=== PATIENT | female | born 1955 | race Caucasian/White ===

== ENCOUNTER 2023-11-23 22:46 | Inpatient (IN) ==
[2023-11-23] MEDS ORDERED: ONDANSETRON INJ 2 MG/ML 2 ML VIAL ONE (23:03)
[2023-11-23] MEDS ORDERED: MIDAZOLAM HCL 5 MG/ML 2ML VIAL ONE (23:03)
[2023-11-23] MEDS ORDERED: SODIUM CHLORIDE 0.9% 1,000 ML IV ONE (23:48)
--- NOTE | 2023-11-23 23:52 | Emergency Department Note ---
Impression & Plan BPV (benign positional vertigo), Second degree AV block, Mobitz type II Admit to the [facility] ED Provider Note NAME: HERRERA VILLALTA AGE: 68 SEX: Female INFORMANT: Patient ED PROVIDER(S): Ursula Rasheed DO CHIEF COMPLAINT: Dizziness and nausea PLAN: Disposition: Admit to the [facility] MEDICAL DECISION MAKING: This is a 68-year-old female patient had a sudden onset of severe dizziness, nausea and vomiting. The patient has had previous episodes of vertigo but none quite this severe. Later in her emergency department stay, the patient remembered that she had bent over to look underneath of her quoting table earlier in the evening and had a severe and sudden onset of dizziness. Upon arrival here in the emergency department, the patient's symptoms had only slightly improved after receiving IV Zofran and IV Versed from EMS. However, the patient did have an episode of second-degree AV block Mobitz type II on the monitoring tech which left her with a heart rate in the 30s. Laboratory studies revealed no leukocytosis or anemia. Renal function was normal. Electrolytes are normal. Glucose was normal. Patient had a negative troponin and normal TSH Patient received IV normal saline bolus here in the ER along with IV Benadryl. She was able to sleep for some time and seemed to be feeling better. However, I remain concerned about the patient's episode of second-degree AV block with significant bradycardia. I discussed the case with the [facility] and they will evaluate for further inpatient care. 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 Vital Signs: reviewed and remarkable for an episode of bradycardia Additional History obtained from: Her who is at the bedside Differential Diagnosis: Cardiac dysrhythmia, vertigo, intracranial hemorrhage, acute viral illness Diagnostics, independently interpreted by me: ECG normal sinus rhythm at a rate of 65. There is no ST segment elevation or signs of ischemia. QTc was normal. There is no ectopy. Cardiac Monitoring: Normal sinus rhythm at 69 Medical decision rules: None Imaging studies: CT scan of the brain: As per stat rad HPI: 68 year old Female arrives for evaluation of severe dizziness and nausea. Patient had a very sudden and acute onset of dizziness around 9 PM this evening associated with cold sweats and nausea. She then began to dry heave. She describes a history of previous episodes of vertigo but not quite this severe. Patient does recall that she bent over to look under quilting table when she had a severe and sudden onset of dizziness earlier in the evening. PAST MEDICAL HISTORY: GERD, PAST SURGICAL HISTORY: See Below, SOCIAL HISTORY: Lives with her , HOME MEDICATIONS: See list ALLERGIES: See list VITALS: See Below PHYSICAL EXAMINATION: HEENT: Head - normocephalic and atraumatic. Pupils are equal, round, and reactive to light. Extraocular eye muscles are intact and sclera are anicteric. Patient has severe lateral nystagmus. Ears - bilaterally patent canals with noninjected tympanic membranes and no evidence of hemotympanum. Nose - moist nasal mucosa without discharge. Mouth - moist buccal mucosa. Oropharynx is nonerythematous and there is no tonsillar exudate or edema noted. Neck: Supple; no cervical lymphadenopathy or thyromegaly Heart: Regular rate and rhythm. There is a normal S1 and S2 with no murmurs, clicks, or gallops appreciated. Lungs: Clear to auscultation bilaterally with no wheezes, rales, or rhonchi. Abdomen: Soft, completely nontender, nondistended, with good bowel sounds. There are no palpable pulsatile masses or hepatosplenomegaly. There is no guarding, rigidity, or rebound noted. Extremities: No evidence of cyanosis, clubbing, or edema. There are easily palpable peripheral pulses. Neuro:The patient is awake and alert, oriented to day, time, and place. Muscle strength is 5/5 in all 4 extremities. The patient has equal it auditor strength and equal pedal push and pull. There are no cerebellar signs. Emergency department treatment: cardiac monitor, normal saline bolus, IV Benadryl ED course: The patient was evaluated in room B-11. A complete history and physical was performed. Twelve-lead EKG was obtained. An order was placed for continuous cardiac monitoring. The patient was a normal sinus rhythm at a rate of 69. Nursing staff noted the patient had an episode of bradycardia where her rate went into the 30s. Rhythm strip was reviewed and she was in a secondary heart block type II. The patient was fairly asymptomatic with this but continued to have very severe and persistent nausea. She was given a dose of IV Benadryl and IV normal saline bolus. She was able to sleep for period of time. Upon awakening, she was feeling somewhat better. I reviewed the results of the labs with the patient and her . I discussed my concern for her cardiac dysrhythmia. I discussed the case with the [facility] Past Med/Surg History Medical History (Updated 11/24/23 @ 08:21 by Ursula Rasheed DO) Anemia Hiatal hernia Surgical History (Updated 08/15/21 @ 11:45 by Sandra Morin RN) Hx of LASIK H/O cataract extraction H/O breast biopsy Social History Smoking Status: Never smoker Hx Alcohol Use: Yes Hx Substance Use: No Preferred Language: Occitan Communication Ability: Effective Prosthetist Required: No Beliefs That Will Affect Care: None Current Living Situation: Spouse Other Information That Helps Us Care for You: No Feels Safe at Home: Yes Safety Concerns: Feels Safe At This Time Assistive Devices: None Allergies Allergies Allergy/AdvReac Type Severity Reaction Status Date / Time nitrofurantoin Allergy Intermediate Hives Verified 11/23/23 23:13 [From Macrobid] Sulfa (Sulfonamide Allergy Intermediate Rash Verified 11/23/23 23:13 Antibiotics) scopolamine AdvReac Intermediate LONG Verified 11/23/23 23:13 WITHDRAWAL SYMPTOMS Home Meds Home Medications Medication Instructions Recorded Confirmed albuterol sulfate 90 mcg/actuation 2 inh inhalation Q4H PRN Shortness 08/15/21 11/23/23 aerosol inhaler (Ventolin HFA) Of Breath Or Wheezing calcium carbonate 500 mg-vitamin 1 tab PO DAILY 08/15/21 11/23/23 D3 3.125 mcg (125 unit) tablet Bacillus coagulans 500 million 1 cap PO DAILY 11/23/23 11/23/23 cell-lactase 3,000 unit capsule (Digestive Advantage Lactose Supprt) calcium carbonate 300 mg (750 mg) 600 mg PO DIRECTED PRN Heartburn 11/23/23 11/23/23 chewable tablet (Tums E-X) cholecalciferol (vitamin D3) 25 25 mcg PO QPM 11/23/23 11/23/23 mcg (1,000 unit) capsule (Vitamin D3) coenzyme Q10 100 mg capsule 100 mg PO DAILY 11/23/23 11/23/23 (CoQ-10) multivitamin with minerals 1 tab PO DAILY 11/23/23 11/23/23 omega-3 fatty acids 1,000 mg 1,000 mg PO DAILY 11/23/23 11/23/23 capsule omeprazole 20 mg capsule,delayed 20 mg PO DAILYBB 11/23/23 11/23/23 release psyllium husk 0.4 gram capsule 0.8 g PO DAILY 11/23/23 11/23/23 (Fiber (psyllium husk)) valacyclovir 1 gram tablet 2,000 mg PO Q12H PRN Cold Sores 11/23/23 11/23/23 (Valtrex) Results & Data (ED) Vital Signs Vital Signs - 24 hr 11/23/23 22:50 11/23/23 22:58 11/23/23 22:58 Temperature 36.4 C L Temperature Source Oral Pulse Rate 64 67 66 Pulse Rate [Bilateral] Pulse Rate from SpO2 Sensor Pulse Rhythm Regular Pulse Strength Normal Respiratory Rate 20 22 Respiratory Effort / Characteristics Non-Labored Spontaneous Respiratory Depth Normal Respiratory Pattern Regular Blood Pressure 128/86 Blood Pressure [Right Arm] Blood Pressure Mean 100 Blood Pressure Mean [Right Arm] Blood Pressure Position Lying Pulse Oximetry 100 Oxygen Delivery Method Nasal Cannula Oxygen Flow Rate 4 Sepsis Recent Fever Within 48 Hours No Sepsis New/Unexplained Change in Mental Status N/A Sepsis Action Taken by Nursing No Action Required 11/23/23 23:00 11/23/23 23:20 11/23/23 23:30 Temperature Temperature Source Pulse Rate 63 36 L 64 Pulse Rate [Bilateral] Pulse Rate from SpO2 Sensor 63 Pulse Rhythm Pulse Strength Respiratory Rate 18 17 Respiratory Effort / Characteristics Respiratory Depth Respiratory Pattern Blood Pressure 125/81 127/91 Blood Pressure [Right Arm] Blood Pressure Mean 95 103 Blood Pressure Mean [Right Arm] Blood Pressure Position Pulse Oximetry 97 Oxygen Delivery Method Oxygen Flow Rate Sepsis Recent Fever Within 48 Hours Sepsis New/Unexplained Change in Mental Status Sepsis Action Taken by Nursing 11/24/23 00:00 11/24/23 00:25 11/24/23 00:30 Temperature Temperature Source Pulse Rate 63 71 Pulse Rate [Bilateral] 70 Pulse Rate from SpO2 Sensor 64 70 Pulse Rhythm Pulse Strength Respiratory Rate 20 18 15 Respiratory Effort / Characteristics Respiratory Depth Respiratory Pattern Blood Pressure 126/90 139/86 Blood Pressure [Right Arm] 139/86 Blood Pressure Mean 102 103 Blood Pressure Mean [Right Arm] 103 Blood Pressure Position Pulse Oximetry 97 99 99 Oxygen Delivery Method Room Air Oxygen Flow Rate Sepsis Recent Fever Within 48 Hours Sepsis New/Unexplained Change in Mental Status Sepsis Action Taken by Nursing 11/24/23 01:00 11/24/23 01:30 11/24/23 02:00 Temperature Temperature Source Pulse Rate 67 72 63 Pulse Rate [Bilateral] Pulse Rate from SpO2 Sensor 68 71 63 Pulse Rhythm Pulse Strength Respiratory Rate 16 24 16 Respiratory Effort / Characteristics Respiratory Depth Respiratory Pattern Blood Pressure 134/85 145/105 H 129/76 Blood Pressure [Right Arm] Blood Pressure Mean 101 118 93 Blood Pressure Mean [Right Arm] Blood Pressure Position Pulse Oximetry 99 99 100 Oxygen Delivery Method Oxygen Flow Rate Sepsis Recent Fever Within 48 Hours Sepsis New/Unexplained Change in Mental Status Sepsis Action Taken by Nursing 11/24/23 02:30 11/24/23 03:00 11/24/23 03:34 Temperature Temperature Source Pulse Rate 64 76 67 Pulse Rate [Bilateral] Pulse Rate from SpO2 Sensor 61 76 Pulse Rhythm Pulse Strength Respiratory Rate 15 15 Respiratory Effort / Characteristics Respiratory Depth Respiratory Pattern Blood Pressure 127/81 125/79 Blood Pressure [Right Arm] Blood Pressure Mean 94 96 Blood Pressure Mean [Right Arm] Blood Pressure Position Pulse Oximetry 98 95 Oxygen Delivery Method Room Air Room Air Oxygen Flow Rate Sepsis Recent Fever Within 48 Hours Sepsis New/Unexplained Change in Mental Status Sepsis Action Taken by Nursing Laboratory Data 11/24/23 04:51 11/24/23 04:51 Lab Results 11/23/23 Range/Units 23:04 WBC 7.01 (4.8-10.8) K/ul RBC 4.53 (4.20-5.40) M/uL Hgb 13.9 (12.0-16.0) g/dl Hct 41.2 (37.0-47.0) % MCV 90.9 (80.0-100.0) fL MCH 30.7 (25.0-34.0) pg MCHC 33.7 (32.0-36.0) g/dL RDW Std Deviation 41.6 (36.4-46.3) fL RDW Coeff of Charlie 12.5 (11.5-14.5) % Plt Count 174 (130-400) K/uL MPV 11.0 (9.4-12.4) fL Immature Gran % (Auto) 0.4 % Neut % (Auto) 62.2 % Lymph % (Auto) 28.8 % [place] % (Auto) 5.1 % Eos % (Auto) 2.9 % Baso % (Auto) 0.6 % Neut # (Auto) 4.36 (1.40-6.50) K/uL Lymph # (Auto) 2.02 (1.20-3.40) K/uL [place] # (Auto) 0.36 (0.11-0.59) K/uL Eos # (Auto) 0.20 (0.00-0.50) K/uL Baso # (Auto) 0.04 (0.00-0.20) K/uL Immature Gran # (Auto) 0.03 (0.01-0.20) K/uL Sodium 138 (136-145) mmol/L Potassium 4.0 (3.5-5.1) mmol/L Chloride 106 (98-107) mmol/L Carbon Dioxide 25 (21-32) mmol/L Anion Gap 7 (3-11) BUN 16 (6-23) mg/dl Creatinine 1.11 (0.6-1.2) mg/dl Est Cr Clr Drug Dosing 46.7 ml/min Est GFR ( Amer) 58.7 ml/min Est GFR (Non-Af Amer) 50.6 ml/min BUN/Creatinine Ratio 14.4 (10-20) Glucose 143 H (70-99(Fasting)) mg/dl Calcium 8.9 (8.6-10.3) mg/dl Magnesium 1.9 (1.7-2.4) mg/dl Total Bilirubin 0.4 (0.2-1.0) mg/dl AST 18 (13-39) U/L ALT 15 (7-52) U/L Alkaline Phosphatase 92 (34-104) U/L Troponin I High Sens 2.8 (0-14) pg/ml Total Protein 6.7 (6.0-8.3) gm/dl Albumin 4.1 (3.4-5.0) gm/dl Globulin 2.6 (2.5-4.0) gm/dl Albumin/Globulin Ratio 1.6 (0.9-2) TSH 2.063 (0.300-4.500) uIu/ml Administered Medications Sodium Chloride (Nss) 1,000 mls @ 80 mls/hr IV .[id number] TAWANNA Stop: 12/24/23 04:38 Last Admin: 11/24/23 05:08 Dose: 80 mls/hr Documented By: Discontinued Medications Diphenhydramine HCl (Diphenhydramine 50 Mg/Ml Vial) 25 mg IV NOW STA Stop: 11/24/23 01:10 Last Admin: 11/24/23 01:30 Dose: 25 mg Documented By: SAJAN Sodium Chloride (Nss) 1,000 mls @ 999 mls/hr IV .Q1H1M ONE Stop: 11/24/23 00:48 Last Infusion: 11/24/23 01:00 Dose: Infused Documented By: Admin: 11/23/23 23:57 Dose: 999 mls/hr Documented By: SAJAN Imaging Data Radiologist's Impression: Head CT 11/23/23 23:46 Exam(s): CT HEAD Without Contrast EXAM: CT Head Without Intravenous Contrast CLINICAL HISTORY: Reason for exam: severe dizziness. TECHNIQUE: Axial computed tomography images of the head/brain without intravenous contrast. CTDI is 36.18 mGy and DLP is 624.41 mGy-cm. Automated exposure control was utilized for the study. A dose lowering technique was utilized adhering to the principles of ALARA. COMPARISON: None. FINDINGS: Brain: Mild generalized brain atrophy. No hemorrhage. No significant white matter disease. Ventricles: Unremarkable. No ventriculomegaly. Bones/joints: Unremarkable. No acute fracture. Soft tissues: Unremarkable. Sinuses: Unremarkable as visualized. No acute sinusitis. Mastoid air cells: Unremarkable as visualized. No mastoid effusion. IMPRESSION: Involutional changes, otherwise normal CT brain. Electronically signed by: Lizzette Sylvester MD 11/24/23 03:29 AM Discharge Plan Visit Data Chief Complaint: Vertigo Stated Complaint: VERTIGO ED Provider: Ursula Rasheed Discharge Problem: BPV (benign positional vertigo), Second degree AV block, Mobitz type II Patient Disposition: Admitted As Inpatient Discharge Instructions Interventions: ED Discharge Assessment Last Done: 11/24/23 04:39 Discharge Problem: BPV (benign positional vertigo) Qualifiers: Laterality: unspecified laterality Qualified Code(s): H81.10 - Benign paroxysmal vertigo, unspecified ear
[2023-11-24 00:14] LABS: Basophils # (auto) 0.04 K/uL (0.00-0.20); Basophils % (auto) 0.6 %; Eosinophils % (auto) 2.9 %; Hematocrit (blood only) 41.2 % (37.0-47.0); Hemoglobin 13.9 g/dl (12.0-16.0); Immature Granulocytes # (auto) 0.03 K/uL (0.01-0.20); Immature Granulocytes % (auto) 0.4 %; Lymphocytes # (auto) 2.02 K/uL (1.20-3.40); Lymphocytes % (auto) 28.8 %; Mean Corpuscular Hemoglobin 30.7 pg (25.0-34.0); Mean Corpuscular Hgb Conc 33.7 g/dL (32.0-36.0); Mean Corpuscular Volume 90.9 fL (80.0-100.0); Monocytes # (auto) 0.36 K/uL (0.11-0.59); Monocytes % (auto) 5.1 %; Neutrophils # (auto) 4.36 K/uL (1.40-6.50); Neutrophils % (auto) 62.2 %; Platelet Count 174 K/uL (130-400); RDW Coefficient of Variation 12.5 % (11.5-14.5); RDW Standard Deviation 41.6 fL (36.4-46.3); Red Blood Count 4.53 M/uL (4.20-5.40); White Blood Count 7.01 K/ul (4.8-10.8)
[2023-11-24 00:18] LABS: Albumin Globulin Ratio 1.6 (0.9-2); Albumin Level 4.1 gm/dl (3.4-5.0); BUN Creatinine Ratio 14.4 (10-20); Bilirubin,Total 0.4 mg/dl (0.2-1.0); Calcium 8.9 mg/dl (8.6-10.3); Creatinine Clr Calc Pharmacy 46.7 ml/min; Est GFR (African American) 58.7 ml/min; Est GFR (Non-African American) 50.6 ml/min; Globulin 2.6 gm/dl (2.5-4.0); Magnesium 1.9 mg/dl (1.7-2.4); Total Protein 6.7 gm/dl (6.0-8.3)
[2023-11-24 00:25] LABS: Troponin I High Sensitivity 2.8 pg/ml (0-14)
[2023-11-24 00:34] LABS: Thyroid Stimulating Hormone 2.063 uIu/ml (0.300-4.500)
[2023-11-24] MEDS ORDERED: diphenhydrAMINE 50 MG/ML VIAL IV STA (01:09)
--- NOTE | 2023-11-24 03:30 | CT Scan Report ---
Exam(s): CT HEAD Without Contrast EXAM: CT Head Without Intravenous Contrast CLINICAL HISTORY: Reason for exam: severe dizziness. TECHNIQUE: Axial computed tomography images of the head/brain without intravenous contrast. CTDI is 36.18 mGy and DLP is 624.41 mGy-cm. Automated exposure control was utilized for the study. A dose lowering technique was utilized adhering to the principles of ALARA. COMPARISON: None. FINDINGS: Brain: Mild generalized brain atrophy. No hemorrhage. No significant white matter disease. Ventricles: Unremarkable. No ventriculomegaly. Bones/joints: Unremarkable. No acute fracture. Soft tissues: Unremarkable. Sinuses: Unremarkable as visualized. No acute sinusitis. Mastoid air cells: Unremarkable as visualized. No mastoid effusion. IMPRESSION: Involutional changes, otherwise normal CT brain. Electronically signed by: Lizzette Sylvester MD 11/24/23 03:29 AM
--- NOTE | 2023-11-24 04:00 | History & Physical Report ---
Date of Service November 24, 2023 Assessment & Plan (1) Heart block AV second degree: (2) Intractable nausea and vomiting: (3) Vertigo: Plan Pt is a 68yoF with PMhx significant for GERD admitted with concern for Type II heart block after presenting with intractable N/V and vertigo. Heart Block Pt with concern for Type II heart block on telemetry/rhythm strip in the ED with HR in the 30s EKG ordered and pending Trop of 2.8, trend Echo ordered and pending Lyme testing ordered and pending pacer pads to be placed Cardiology consult Intractable N/V Vertigo Pt with sudden onset after bending while quilting CT head with no acute changes Symptoms currently improved Received Versed in the ambulance given by EMS Avoid qt prolonging antiemetics in setting of concern for Type II heart block IV fluids Diet clear liquids, advance as tolerated Gross hematuria Dysuria Notes recent Hx of this UA ordered and pending States has followup with Urology scheduled for gross hematuria on dec 20 Continue home omeprazole once tolerating po well. CODE STATUS: Full code DVT prophylaxis: Lovenox SQ Diet: Clear liquids Dispo: PCU/tele History of Present Illness Chief Complaint: Vertigo Primary Care Provider: Albertina Askew, Pt is a 68yoF with PMhx significant for GERD admitted with concern for Type II heart block after presenting with intractable N/V and vertigo. Pt at bedside. Pt states that about 9pm was quilting and occasionally has to bend to look under the quilt. After an episode of bending, she stood up and noticed that everything was spinning. Got clod and clammy, states she had sweat dripping down her face. Denied chest pain at that time, denied SOB. States this has never happened before. Denies recent tick bites. States she had episodes of N/V and is currently feeling better. States that the room is no longer spinning but feels dizzy or uneasy with walking to the bathroom. Notes a Hx of chronic dysuria. Notes recent episode of gross hematuria and has scheduled follow up with Urology in November. Per ED provider pt had to receive Versed due to current shortage of other benzos, which helped her symptoms. Was being monitored when second degree heart block was noted with HR in the 30s. Allergies Allergy/AdvReac Type Severity Reaction Status Date / Time nitrofurantoin Allergy Intermediate Hives Verified 11/23/23 23:13 [From Macrobid] Sulfa (Sulfonamide Allergy Intermediate Rash Verified 11/23/23 23:13 Antibiotics) scopolamine AdvReac Intermediate LONG Verified 11/23/23 23:13 WITHDRAWAL SYMPTOMS Home Medications Medication Instructions Recorded Confirmed Type albuterol sulfate 90 mcg/actuation 2 inh inhalation Q4H PRN Shortness 08/15/21 11/23/23 History aerosol inhaler (Ventolin HFA) Of Breath Or Wheezing calcium carbonate 500 mg-vitamin 1 tab PO DAILY 08/15/21 11/23/23 History D3 3.125 mcg (125 unit) tablet Bacillus coagulans 500 million 1 cap PO DAILY 11/23/23 11/23/23 History cell-lactase 3,000 unit capsule (Digestive Advantage Lactose Supprt) calcium carbonate 300 mg (750 mg) 600 mg PO DIRECTED PRN Heartburn 11/23/23 11/23/23 History chewable tablet (Tums E-X) cholecalciferol (vitamin D3) 25 25 mcg PO QPM 11/23/23 11/23/23 History mcg (1,000 unit) capsule (Vitamin D3) coenzyme Q10 100 mg capsule 100 mg PO DAILY 11/23/23 11/23/23 History (CoQ-10) multivitamin with minerals 1 tab PO DAILY 11/23/23 11/23/23 History omega-3 fatty acids 1,000 mg 1,000 mg PO DAILY 11/23/23 11/23/23 History capsule omeprazole 20 mg capsule,delayed 20 mg PO DAILYBB 11/23/23 11/23/23 History release psyllium husk 0.4 gram capsule 0.8 g PO DAILY 11/23/23 11/23/23 History (Fiber (psyllium husk)) valacyclovir 1 gram tablet 2,000 mg PO Q12H PRN Cold Sores 11/23/23 11/23/23 History (Valtrex) Past Med/Surg History Medical History (Updated 11/24/23 @ 04:43 by Leah Gu MD) Anemia Hiatal hernia Surgical History (Updated 08/15/21 @ 11:45 by Sandra Morin RN) Hx of LASIK H/O cataract extraction H/O breast biopsy Social History Smoking Status: Never smoker Feels Safe at Home: Yes Review of Systems Review of Systems: All systems reviewed & are unremarkable except as noted in HPI & below Physical Exam Physical Exam: General: Alert, oriented. No acute distress Skin: No noted rashes or bruises Psych: Appropriate mood and affect Neuro: No gross deficits HEENT: NC/AT Chest: Nontender to palpation. CV: RRR Resp: Breath sounds clear bilaterally, no increased effort of breathing. Abdomen: Soft, nontender, nondistended. Extremities: No edema in lower extremities bilaterally. Results & Data Results & Data Vital Signs (Past 12 Hours) Vital Signs Temp Pulse Pulse Resp BP BP Pulse Ox 11/24/23 03:34 67 11/24/23 03:00 76 15 125/79 95 11/24/23 02:30 64 15 127/81 98 11/24/23 02:00 63 16 129/76 100 11/24/23 01:30 72 24 145/105 H 99 11/24/23 01:00 67 16 134/85 99 11/24/23 00:30 71 15 139/86 99 11/24/23 00:25 70 18 139/86 99 11/24/23 00:00 63 20 126/90 97 11/23/23 23:30 64 17 127/91 97 11/23/23 23:20 36 L 11/23/23 23:00 63 18 125/81 11/23/23 22:58 66 22 11/23/23 22:58 67 11/23/23 22:50 36.4 C L 64 20 128/86 100 O2 Del Method O2 Flow Rate 11/24/23 03:34 11/24/23 03:00 Room Air 11/24/23 02:30 Room Air 11/24/23 02:00 11/24/23 01:30 11/24/23 01:00 11/24/23 00:30 11/24/23 00:25 Room Air 11/24/23 00:00 11/23/23 23:30 11/23/23 23:20 11/23/23 23:00 11/23/23 22:58 11/23/23 22:58 11/23/23 22:50 Nasal Cannula [address] 11/23/23 23:46 Exam(s): CT HEAD Without Contrast EXAM: CT Head Without Intravenous Contrast CLINICAL HISTORY: Reason for exam: severe dizziness. TECHNIQUE: Axial computed tomography images of the head/brain without intravenous contrast. CTDI is 36.18 mGy and DLP is 624.41 mGy-cm. Automated exposure control was utilized for the study. A dose lowering technique was utilized adhering to the principles of ALARA. COMPARISON: None. FINDINGS: Brain: Mild generalized brain atrophy. No hemorrhage. No significant white matter disease. Ventricles: Unremarkable. No ventriculomegaly. Bones/joints: Unremarkable. No acute fracture. Soft tissues: Unremarkable. Sinuses: Unremarkable as visualized. No acute sinusitis. Mastoid air cells: Unremarkable as visualized. No mastoid effusion. IMPRESSION: Involutional changes, otherwise normal CT brain. Electronically signed by: Lizzette Sylvester MD 11/24/23 03:29 AM
[2023-11-24] MEDS ORDERED: SODIUM CHLORIDE 0.9% 1,000 ML IV SCH (04:39)
[2023-11-24] MEDS ORDERED: ACETAMINOPHEN 1,000 MG/100 ML VIAL IV PRN (04:39)
[2023-11-24 05:17] LABS: Anion Gap 7 (3-11); BUN Creatinine Ratio 13.5 (10-20); Blood Urea Nitrogen 13 mg/dl (6-23); Carbon Dioxide 25 mmol/L (21-32); Chloride 108 mmol/L (98-107); Creatinine Clr Calc Pharmacy 50.9 ml/min; Est GFR (African American) 69.9 ml/min; Est GFR (Non-African American) 60.3 ml/min; Glucose 125 mg/dl (70-99(Fasting)); Magnesium 1.9 mg/dl (1.7-2.4); Phosphorus 2.4 mg/dl (2.5-4.9); Potassium 4.3 mmol/L (3.5-5.1); Sodium 140 mmol/L (136-145)
[2023-11-24 05:23] LABS: Troponin I High Sensitivity < 2.3 pg/ml (0-14)
--- OUTSIDE RECORDS SUMMARY | 2023-11-24 05:27 | External Medical Summary ---
Author Name Unknown Address Unknown Organization [facility] [address] [place] [id number] Laboratory Report Ordering Provider Test Date Status DO DASHAWNEDY 11/09/2023 11:10:21 Final Observation Date Value Abnormality Reference (Units ) Status BUN 11/09/2023 11:10:21 17 6-20 (mg/dL) Final Creatinine 11/09/2023 11:10:21 1.0 0.5-1.0 (mg/dL) Final Glomerular filtration rate/1.73 sq M.predicted [Volume Rate/Area] in Serum, Plasma or Blood by Creatinine-based formula (CKD-EPI) 11/09/2023 11:10:21 61 >=60 (mL/min) Final eGFR is calculated based on the CKD-EPI 2020 equation SODIUM 11/09/2023 11:10:21 141 135-146 (m mol/L) Final Potassium 11/09/2023 11:10:21 4.4 3.5-5.1 (m mol/L) Final Cl 11/09/2023 11:10:21 104 98-107 (mm ol/L) Final CO2 11/09/2023 11:10:21 25 22-32 (mmo l/L) Final Anion gap 11/09/2023 11:10:21 12 7-15 (mmol /L) Final Glucose 11/09/2023 11:10:21 109 70-120 (mg /dL) Final Calcium 11/09/2023 11:10:21 9.7 8.4-10.2 ( mg/dL) Final Performing Location [facility] [address] [place] [id number]
--- OUTSIDE RECORDS SUMMARY | 2023-11-24 05:27 | External Medical Summary ---
Author Name Unknown Address Unknown Organization [facility] [address] [place] [id number] Laboratory Report Ordering Provider Test Date Status RITA STORY 11/09/2023 11:13:05 Final Observation Date Value Abnormality Reference (Units ) Status RBC, Urine 11/09/2023 11:13:05 50+ Abnormal 0-2 (/HPF) Final WBC, Urine 11/09/2023 11:13:05 6-9 Abnormal 0-2 (/HPF) Final Bacteria [#/area] in Urine sediment by Microscopy high power field 11/09/2023 11:13:05 26-50 Abnormal 0-25 (/HPF) Final Performing Location [facility] [address] [place] [id number]
--- OUTSIDE RECORDS SUMMARY | 2023-11-24 05:27 | External Medical Summary ---
Author Name Unknown Address Unknown Organization [facility] [address] [place] [address] Laboratory Report Ordering Provider Test Date Status RITA STORY 11/09/2023 11:13:05 Final Observation Date Value Abnormality Reference (Units ) Status Color of Urine by Auto 11/09/2023 11:13:05 Dark Yellow Light Yellow, Yellow, Dark Yellow Final Clarity, Urine 11/09/2023 11:13:05 Slightly Cloudy Abnormal Clear Final Glucose [Mass/volume] in Urine by Automated test strip 11/09/2023 11:13:05 Negative Negative (mg/dL) Final Bilirubin.total [Presence] in Urine by Automated test strip 11/09/2023 11:13:05 Negative Negative Final Ketones [Mass/volume] in Urine by Automated test strip 11/09/2023 11:13:05 15 Abnormal Negative (mg/dL) Final Specific gravity, Urine 11/09/2023 11:13:05 >=1.030 1.003-1.030 Final Hemoglobin [Presence] in Urine by Automated test strip 11/09/2023 11:13:05 Large Abnormal Negative Final pH, Urine 11/09/2023 11:13:05 5.5 5.0-7.5 (Units) Final Protein [Mass/volume] in Urine by Automated test strip 11/09/2023 11:13:05 30 Abnormal Negative (mg/dL) Final Urobilinogen [Mass/volume] in Urine by Automated test strip 11/09/2023 11:13:05 0.2 0.2, 1.0 (mg/dL) Final Nitrite [Presence] in Urine by Automated test strip 11/09/2023 11:13:05 Negative Negative Final Leukocyte esterase [Presence] in Urine by Automated test strip 11/09/2023 11:13:05 Trace Abnormal Negative Final Performing Location [facility] [address] [place] [id number]
--- OUTSIDE RECORDS SUMMARY | 2023-11-24 05:27 | External Medical Summary | Summary of Care ---
Author Name Unknown Organization [facility] Address [address] [place] [address] Phone [phone] Care Team Providers Care Supervisor Sewing Department Name Role Phone Albertina Askew Primary Care Provider Encounter Details Date Type Department Care Team (Late st Contact Info) Description 11/16/2023 Telephone General Internal Medicine [facility] [address] [facility] [place] [address] Ranjit Barajas PA-C [facility] [place] [address] Allergies Active Allergy Reactions Criticality Noted Date Comments Nitrofurantoin Macrocrystal Hives 01/31/20 19 Scopolamine 12/18/2022 Long withdrawal symptom Sulfa Antibiotics 06/04/2008 RASH documented as of this encounter (statuses as of 11/17/2023) Medications Medication Sig Dispensed Refills Start Date End Date Status Multiple Vitamins-Minerals (MULTIVITAMIN ADULT EXTRA C) CHEW Take by mouth daily. 0 Active Calcium Carb-Cholecalcifero l 600-800 MG-UNIT Oral Tablet Take 1 Tablet by mouth in the morning. 0 Active Norwood-3 Fatty Acids (OMEGA-3 CF) 1000 MG CAPS Take by mouth daily. 0 Active Loratadine 10 MG Oral Tablet Take 1 Tablet by mouth in the morning. 0 Active Ventolin HFA 108 (90 Base) MCG/ACT Inhalation Aerosol Solution Inhale 2 Puffs by mouth every 4 hours as needed for Wheezing. 18 g 0 08/01/2021 Active Tums Extra Strength 750 750 MG Oral Tablet Chewable (calcium CARBonate) Take 2 Tablets by mouth as needed for Heartburn. 0 Active Co Q 10 100 MG Oral Capsule Take by mouth. 0 Active Scopolamine 1 MG/3DAYS Transdermal Patch 72 Hour (Transderm-Scop) Place 1 Patch topically on the skin every 3 days. 4 hours before event. May replace every 3 days. . 4 Patch 1 11/21/2022 Active Omeprazole 20 MG Oral Capsule Delayed Release (PriLOSEC)Indicatio ns:Gastroesophageal reflux disease without esophagitis take 1 capsule by mouth every morning 1 hour before breakfast 90 Capsule 2 03/04/2023 Active Digestive Advantage Oral Capsule Take by mouth. Combination of probiotics with lactose support. 0 Active valACYclovir HCl 1 GM Oral Tablet (Valtrex)Indication s:Recurrent cold sores take 2 tablets by mouth every morning and 2 tablets at bedtime for COLD SORE 12 Tablet 1 06/07/2023 Active Vitamin D (Cholecalciferol) 25 MCG (1000 UT) Oral Capsule Take by mouth every evening. 0 Active Fiber Formula Oral Capsule Take 2 Capsules by mouth. 0 Active documented as of this encounter (statuses as of 11/17/2023) Active Problems Problem Noted Date Diagnosed Date GERD (gastroesophageal reflux disease) 2 Paraesophageal hernia 12/24/2021 Iron deficiency anemia 08/18/2021 Hand pain 08/10/2017 Trigger middle finger of left hand 08/10/2017 documented as of this encounter (statuses as of 11/17/2023) Resolved Problems Problem Noted Date Diagnosed Date Resolved Date Chronic kidney disease, stage 3a 01/05/2022 12/18/2022 Overview: Per CKD protocol Herpetic gingivostomatitis 04/07/2011 0 08/11/2018 Acute bronchitis, complicated 03/12/2010 05/18/2017 ADVANCE DIRECTIVE INFORMATION 04/06/2007 08/11/2018 Overview: Information given to patient at a previous visit. Contact with or exposure to other viral diseases(V01.79) 09/01/2004 05/18/2017 Uterine leiomyoma 01/11/2004 11/04/2018 VIRAL DIS CONTACT NEC 04/11/20022005 FAM HX-DIABETES MELLITUS 04/11/2002 Excessive menstruation 05/18 documented as of this encounter (statuses as of 11/17/2023) Immunizations Name Administration Dates Next Due COVID-19 mRNA, LNP-s, No Pre serve, 2-Dose Series (Qiniu) 10/13/2021,02/01/2021,01/11/2021 COVID-19, LNP-s, No Preserve , Akhil-sucrose, Ages 12+ (Pfizer) 03/19/2022 Covid-19, Mrna, Lnp-s, Pf, B ivalent, 30 Mcg, IM, 12 yrs and above (Pfizer) 09/04/2022 Pneumococcal Conjugate Vacci ne, 20-valent (Hrajqeu24) 06/07/2023 Pneumococcal Polysaccharide PPV23 (Pneumovax) 04/17/2022,11/07/2019 Seasonal Influenza, PF, 6 M & above, IM , (FluLaval or Fluzone) 09/10/2020,07/20/2019,08/31/2018,08/17 Seasonal Influenza, Quadriva lent Hd (Fluzone Hd) 09/08/2023,09/07/2022,10/01/2021 Seasonal Influenza, Quadriva lent, No Preserve, IM 12/01/2016,10/24/2015 Seasonal Influenza, Split, I IV3, With Preserve, Inj 09/03/2014,09/04/2013,09/05/2012,09/21,11/03/2009,09/26/2008,10/05/2006 ,09/29/2005 TDAP (age 10 and older)(Boostrix) 08/31/2018 TDAP (age 11 and older)(Adacel) 05/24/2008 Varicella Zoster Vaccine (Adult) 09/25/2014 documented as of this encounter Social History Tobacco Use Types Packs/Day Years Used Date Smoking Tobacco: Never Passive Smoke Exposure: Past Smokeless Tobacco: Never Passive Exposure Comments:As a child Alcohol Use Standard Drinks/Week Comments Yes 0 (1 standard drink = 0.6 oz pur e alcohol) occasional PHQ-2 Answer Date Recorded PHQ Adult Total Score 1 10/30/2021 Hunger Vital Sign Answer Date Recorded Within the past 12 months, y ou worried that your food would run out before you got the money to buy more. Never true 06/02/20 23 Within the past 12 months, t he food you bought just didn't last and you didn't have money to get more. Never true 06/02/2023 Sex and Gender Information Value Date Recorded Sex Assigned at Female 04/09/2022 9:26 PM EDT Gender Identity Female 04/09/2022 9:26 PM EDT Sexual Orientation Straight 12/18/2021 8: 33 AM EST Job Start Date Occupation Industry Not on file Not on file Not on file documented as of this encounter Functional Status Functional Status Response Date of Assess ment Are you deaf or do you have serious difficulty h earing? No 12/24/2021 Are you blind or do you have serious difficulty seeing, even when wearing glasses? No 12/24/2021 Do you have serious difficul ty walking or climbing stairs? (5 years old or older) No 12/24/2021 Do you have difficulty dress ing or bathing? (5 years old or older) No 12/24/2021 Because of a physical, menta l, or emotional condition, do you have difficulty doing errands alone such as visiting a doctor s office or shopping? (15 years old or older) No 12/24/19 Cognitive Status Response Date of Assessm ent Because of a physical, menta l, or emotional condition, do you have serious difficulty concentrating, remembering, or making decisions? (5 years old or older) No 12/24/2021 documented as of this encounter Miscellaneous Notes * Telephone Encounter - Pa Cade OSA - 11/17/2023 1:22 PM EST There aren't any soon appts with Dr. Dawkins here at [facility]. [facility] Urology would be the best recommendation to be seen soon. * Telephone Encounter - Sherita Garrison OSA - 11/17/2023 12:59 PM EST Is there anything arnold to get pt in sooner if not I will send referral to [facility] * Telephone Encounter - Hillary Méndez LPN - 11/17/2023 12:17 PM EST Patient aware and verbalized understanding Is willing to see CT urology - please assist with referral * Telephone Encounter - Ranjit Barajas PA-C - 11/16/2023 12:02 PM EST Patient did not read [employer] message. Still has blood in urine. Would like her to see urology sooner than June. See if willing to see [facility]. documented in this encounter Plan of Treatment Upcoming Encounters Date Type Department Care Team (Late st Contact Info) Description 12/08/2023 9:30 AM EST Office Visit [facility] [address] [place] [id number] Albertina Askew, [address] [place] [address] 06/27/2024 8:00 AM EDT Office Visit Urology, [facility] [address] [facility] [place] [address] Gino Dawkins MD [address] [facility] [address] [place] [address] 08/23/2024 9:40 AM EDT Appointment Radiology, [address] [phone] 08/23/2024 11:30 AM EDT Office Visit General Surgery, [place] [address] [place] [address] Bola Haji MD [facility] [place] [address] Health Maintenance Due Date Last Done Comments Cologuard 1999 Fecal Occult Blood Test 1999 04/02/1998 Sigmoidoscopy 1999 Zoster Vaccines (2 of 3) 11/20/2014 09/25/2014 Depression Screening 10/30/2022 10/30/2021 COVID-19 Vaccine ( season) 2023 09/04/2022, 03/19/2022, 10/13/2021, Additional history exists Mammogram 06/17/2024 06/17/2023, 05/23, 05/28/2022, Additional history exists Diabetes Screening 11/09/2026 11/09/2023, 0 06/17/2023, 12/18/2022, Additional history exists Lipid Panel 04/17/2027 04/17/2022, 11/23, 10/05/2018, Additional history exists DTaP,Tdap,and Td Vaccines (3 - Td or Tdap) 08/31/2028 08/31/2018, 05/24/2008 DXA Scan 01/20/2029 01/20/2022, 0311/2021, 08/01/2018, Additional history exists Colonoscopy 09/01/2031 09/01/2021, 08/22, 12/21/2016, Additional history exists Colorectal Cancer Screening 09/01/2031 Albumin/Creatinine Ratio Discontinued 04/17/2022 Pneumococcal Vaccine: 65+ Years Completed 06/07/2023, 04/17/2022, 11/07/2019 Influenza Vaccine (FLU shot) Completed 09/08/2023, 09/07/2022, 10/01/2021, Additional history exists GARDASIL-HPV IMMUNIZATION SERIES Aged Out No longer eligible based on patient's age to complete this topic Hepatitis B Aged Out No longer eligi ble based on patient's age to complete this topic MENINGOCOCCAL (MENACTRA/MENVEO) Aged Out No longer eligible based on patient's age to complete this topic documented as of this encounter Medical Devices Implanted Type Area Division Officer Weapons Department Device Identifier Shelf Expiration Date Model / Serial / Lot Lens Intraoc 20.5 - [id number] - [id number] Implanted:Qty: 1 on 05/16/2020 by Fer Guzman MD at OR [facility] Left: Eye [employer] 10/21/2024 [id number] / [id number] / [id number] Lens Intraoc 22.0 - [id number] - [id number] Implanted:Qty: 1 on 06/04/2020 by Fer Guzman MD at OR [facility] Right: Eye [employer]OM[employer] 10/21/2024 [id number] / [id number] / Allomax Mesh 2 X 4 [id number] - [id number] - [id number] Implanted:Qty: 1 on 12/24/2021 by Bola Haji MD at OR [facility] N/A: Abdomen CR BARD : DAVOL 01/19/2026 [id number] / [id number] / [id number] documented as of this encounter Advance Directives Latest Code Status on File Code Status Date Activated Date Inactivated Comments Full Code 12/24/2021 6:41 PM 12/25/2021 6:20 PM This or tasha reflects the patients wishes and were consensually agreed upon. Question Answer Comments Discussion of Advance Directives occurred with: Not Discussed Does the patient have a Living Will? No Does the patient have Health Care Power of Manager Support Services? No Care Teams Supervisor Sewing Department Relationship Specialty Start Date End Date Albertina Askew DO [address] [facility] [place] [address] PCP - General Family Medicine 05/03/20 documented as of this encounter
--- OUTSIDE RECORDS SUMMARY | 2023-11-24 05:27 | External Medical Summary | Summary of Care ---
Author Name Unknown Organization [facility] Address [address] [place] [address] Phone [phone] Care Team Providers Care Uppers Edge Burnisher Name Role Phone Albertina Askew Primary Care Provider [phone] Reason for Visit * Reason Comments Follow Up Encounter Details Date Type Department Care Team (Latest Contact Info) Description 11/05/2023 9:00 AM EST [facility] General Surgery, [place] [address] [place] [address] Bola Haji MD [address], [place] [id number] Gastroesophageal reflux disease, unspecified whether esophagitis present* Allergies Active Allergy Reactions Criticality Noted Date Comments Nitrofurantoin Macrocrystal Hives 01/31/20 19 Scopolamine 12/18/2022 Long withdrawal symptom Sulfa Antibiotics 06/04/2008 RASH documented as of this encounter (statuses as of 11/05/2023) Medications Medication Sig Dispensed Refills Start Date End Date Status Multiple Vitamins-Minerals (MULTIVITAMIN ADULT EXTRA C) CHEW Take by mouth daily. 0 Active Calcium Carb-Cholecalcifero l 600-800 MG-UNIT Oral Tablet Take 1 Tablet by mouth in the morning. 0 Active [place]-3 Fatty Acids (OMEGA-3 CF) 1000 MG CAPS [...] as of this encounter (statuses as of 11/05/2023) Active Problems Problem Noted Date Diagnosed Date GERD (gastroesophageal reflux disease) 2 Paraesophageal hernia 12/24/2021 Iron deficiency anemia 08/18/2021 Hand pain 08/10/2017 Trigger middle finger of left hand 08/10/2017 documented as of this encounter (statuses as of 11/05/2023) Resolved Problems Problem Noted Date Diagnosed Date [...] as of this encounter (statuses as of 11/05/2023) Immunizations Name Administration Dates Next Due COVID-19 mRNA, LNP-s, No Pre serve, 2-Dose Series (Pfizer) 10/13/2021,02/01/2021,01/11/2021 COVID-19, LNP-s, No Preserve , Akhil-sucrose, Ages 12+ (Pfizer) 03/19/2022 Covid-19, Mrna, Lnp-s, Pf, B ivalent, 30 Mcg, IM, 12 yrs and above (Pfizer) 09/04/2022 Pneumococcal Conjugate Vacci ne, 20-valent ([id number]) 06/07/2023 Pneumococcal Polysaccharide PPV23 (Pneumovax) 04/17/2022,11/07/2019 Seasonal Influenza, PF, 6 M & above, IM , (FluLaval or Fluzone) 09/10/2020,07/20/2019,08/31/2018,08/17 Seasonal Influenza, Quadriva lent Hd (Fluzone Hd) 09/08/2023,09/07/2022,10/01/2021 Seasonal Influenza, Quadriva lent, No Preserve, IM 12/01/2016,10/24/2015 Seasonal Influenza, Split, I IV3, With Preserve, Inj 09/03/2014,09/04/2013,09/05/2012,09/21,11/03/2009,09/26/2008,10/05/2006 TDAP (age 10 and older)(Boostrix) 08/31/2018 TDAP [...] (15 years old or older) No 12/24/19 22 Cognitive Status Response Date of Assessm ent Because of a physical, menta l, or emotional condition, do you have serious difficulty concentrating, remembering, or making decisions? (5 years old or older) No 12/24/2021 documented as of this encounter Progress Notes * Hayder Muir MD - 11/05/2023 9:00 AM EST [facility]" AT [facility] CLINIC VISIT DATE: 11/05/2023 Last Clinical Visit: 01/28/2023 Purnima Reid [id number] 68 year old PCP: Albertina Askew DO Consult requested by: Jairo Baig DO MIS Surgical History: 1) Laparoscopy; Repair Paraesophageal Hernia; for hiatal hernia repair; 12/24/2021 DMP [place], Allomax; 2 X 4 cm 2) Laparoscopy, Esophageal Fundoplication; Tarun 270 degree anterior Fundoplication 3) Upper GI Endoscopy, simple primary examination Doing well after surgery. Patient reports significantly better than prior to surgery. Patient was having abdominal pain radiating to epigastrium starting 5 days ago. Patient restarted omeprazole withimprovement in symptoms. Patient reports nausea and bloating after over eating, which occurs 1-2 times per month. The main preoperative symptoms included Dyspnea and GERD. Symptoms that are resolved or significantly improved include Dyspnea and GERD. Preoperative Reflux Symptom Index score was 13. Preoperative GERD-Health Related Quality of Life score was 19. Reflux Symptom Index Evaluation (0-5): Hoarseness or problem with voice: 2 Throat Clearin Excess throat mucus/post-nasal drip: 4 Difficulty swallowing food, liquid, pills: 0 Coughing after eating or lying down: 0 Breathing difficulties or choking episodes: 0 Troublesome or annoying cough: 0 Globus sensation: 1 Heartburn, chest pain, indigestion, or stomach acid coming up: 1 Current RSI Total Score: 11 GERD-HRQL Evaluation (0-5) Global heartburn severity: 1 Supine heartburn: 1 Upright heartburn: 0 Post-parandial heartburn: 2 Does heartburn require dietary modification? 0 Does heartburn awaken from sleep? 0 Difficulty swallowin Pain with swallowin Feelings of gassiness or bloatin Impact of taking medication on daily life:0 Current GERD-HRQL score: 9 QOLRAD completed: no Burping or belching Yes Tolerating a Full liquid We have DISCONTINUED her NONE . Any history of Gooden's esophagitis?No; Follow up EGD? No Complications: Postoperative complications include: 0 - NONE Clavien Score: N/A Unplanned admission to ICU within 30 days? no Readmission with in 30 days? no Interventions/Re-operations within 30 days? no NEW STUDIES FINDINGS There is no nephrolithiasis or urinary tract calcification on precontrast imaging. There is no renal mass seen on nephrographic phase of imaging. On excretion phase imaging, the entire urinary tract is well opacified and adequately distended, with the exception of the distal segment of the left ureter, which is not well opacified . There is nomass, filling defect, wall thickening, or dilatation in the urinary tract. No filling defect withinthe opacified portions of the urinary bladder, noting that the anterior portion of the urinary bladder is not well opacified and not well distended. Additional findings: Several hepatic cysts. Gallbladder is unremarkable. No biliary dilatation. Spleen is unremarkable. Pancreas is unremarkable. Adrenal glands are unremarkable. Small hiatal hernia. GI tract is grossly unremarkable. Calcified uterine leiomyomas. No intra-abdominal or intrapelvic lymphadenopathy. No ascites or pneumoperitoneum. Abdominal aorta is normal in caliber. Mild degenerative changes in the spine. Mild scoliosis. IMPRESSION No abnormal filling defect or other urothelial abnormality in the opacified urinary tract . Current Outpatient Medications Medication Sig Dispense Refill Multiple Vitamins-Minerals (MULTIVITAMIN ADULT EXTRA C) CHEW Take by mouth daily. Calcium Carb-Cholecalciferol 600-800 MG-UNIT Oral Tablet Take 1 Tablet by mouth in the morning. [place]-3 Fatty Acids (OMEGA-3 CF) 1000 MG CAPS Take by mouth daily. Loratadine 10 MG Oral Tablet Take 1 Tablet by mouth in the morning. (Patient not taking: Reported on 09/08/2023) Ventolin HFA 108 (90 Base) MCG/ACT Inhalation Aerosol Solution Inhale 2 Puffs by mouth every 4 hours as needed for Wheezing. 18 g 0 Tums Extra Strength 750 750 MG Oral Tablet Chewable (calcium CARBonate) Take 2 Tablets by mouth as needed for Heartburn. Co Q 10 100 MG Oral Capsule Take by mouth. Scopolamine 1 MG/3DAYS Transdermal Patch 72 Hour (Transderm-Scop) Place 1 Patch topically on the skin every 3 days. 4 hours before event. May replace every 3 days. . 4 Patch 1 Omeprazole 20 MG Oral Capsule Delayed Release (PriLOSEC) take 1 capsule by mouth every morning 1 hour before breakfast 90 Capsule 2 Digestive Advantage Oral Capsule Take by mouth. Combination of probiotics with lactose support. valACYclovir HCl 1 GM Oral Tablet (Valtrex) take 2 tablets by mouth every morning and 2 tablets at bedtime for COLD SORE 12 Tablet 1 Vitamin D (Cholecalciferol) 25 MCG (1000 UT) Oral Capsule Take by mouth every evening. Fiber Formula Oral Capsule Take 2 Capsules by mouth. No current facility-administered medications for this visit. Allergies as of 11/05/2023 - Reviewed 10/13/2023 Allergen Reaction Noted Macrobid [nitrofurantoin macrocrystal] Hives 01/30/2019 Scopolamine 12/18/2022 Sulfa antibiotics 06/04/2008 Physical Exam: 11/05/2023 No vitals. Reported wt 154 lbs 01/28/2023 Pulse 63 | Temp 35.7 C (96.3 F) | Wt 68.5 kg (151 lb) | LMP 12/23/2005 | BMI 25.13 kg/m | BSA 1.77 m 04/23/2022 BP 139/69 | Pulse 58 | Temp 35.9 C (96.6 F) | Wt 66.9 kg (147 lb 6.4 oz) | LMP 12/23/2005 | BMI 24.53 kg/m | BSA 1.75 m 12/18/21: Blood pressure 143/75, pulse 93, temperature 36.1 C (97 F), height 1.6 m (5' 3"), weight 70.4 kg (155 lb 3.2 oz), last menstrual period 12/23/2005., Body mass index is 27.49 kg/m. General: Alert and appropriate. Well-appearing and in no distress Impression: Excellent progress after 1) Laparoscopy; Repair Paraesophageal Hernia; for hiatal hernia repair; 12/24/2021 DMP [place], Allomax; 2 X 4 cm 2) Laparoscopy, Esophageal Fundoplication; Tarun 270 degree anterior Fundoplication 3) Upper GI Endoscopy, simple primary examination The patient's preoperative symptoms of Dyspnea have significantly improved or resolved on medication Plan: 1) Diet: Regular diet 2) Activity: Unlimited 3) Follow up visit in 1 year with UGI 4) Wound: Healed 5) Medications: Omeprazole 20 mg daily I spent a total of Greater than 55 mins (exact time 50 mins) on the date of service in preparation,delivery, and documentation of the care provided to Purnima Reid excluding any time spent in the performance of separately billed services. Bola Haji MD, FACS, [facility] [employer] [facility] Minimally Invasive/ Bariatric Surgery Fellowship documented in this encounter Plan of Treatment Upcoming Encounters Date Type Department Care Team (Late st Contact Info) Description 12/08/2023 9:30 AM EST Office Visit [address] [phone] Albertina Askew DO [address] [facility] [address] 06/27/2024 8:00 AM EDT Office Visit Urology, [facility] [address] [place] [address] Gino Dawkins MD 27 [facility] [place] [address] [place] [address] Scheduled Orders Name Type Priority Associated Diagnoses Orde r Schedule FLUORO UGI SINGLE CONTRAST Medical Imaging Routine Gastroesophageal reflux disease, unspecified whether esophagitis present Expected: 09/05/2024, Expires: 11/22/2024 Health Maintenance Due Date Last Done Comments Cologuard 1999 Fecal Occult Blood Test 1999 04/02/1998 Sigmoidoscopy 1999 Zoster Vaccines (2 of 3) 11/20/2014 09/25/2014 Depression Screening 10/30/2022 10/30/2021 COVID-19 Vaccine ( season) 2023 09/04/2022, 03/19/2022, 10/13/2021, Additional history exists Mammogram 06/17/2024 06/17/2023, 05/23, 05/28/2022, Additional history exists Diabetes Screening 06/17/2026 06/17/2023, 0 12/18/2022, 04/17/2022, Additional history exists Lipid Panel 04/17/2027 04/17/2022, [...] this encounter Medical Devices Implanted Type Area 4Th Grade Teacher Device Identifier Shelf Expiration Date Model / Serial / Lot Lens Intraoc 20.5 - [id number] - [id number] Implanted:Qty: 1 on 05/16/2020 by Fer Guzman MD at OR [facility] Left: Eye BAUSCH & LOMB 10/21/2024 [id number] / [id number] / [id number] Lens Intraoc 22.0 - [id number] - [id number] Implanted:Qty: 1 on 06/04/2020 by Fer Guzman MD at OR [facility] Right: Eye BAUSCH & LOMB 10/21/2024 [id number] / [id number] / Allomax Mesh 2 X 4 [id number] - [id number] - [id number] Implanted:Qty: 1 on 12/24/2021 by Bola Haji MD at [place] [facility] N/A: Abdomen CR BARD : DAVOL 01/19/2026 [id number] / [id number] / [id number] documented as of this encounter Visit Diagnoses Diagnosis Gastroesophageal reflux disease, unspecified whether esophagitis present- Primary documented in this encounter Advance Directives Latest Code Status on File Code Status Date Activated Date Inactivated Comments Full Code 12/24/2021 6:41 PM 12/25/2021 6:20 PM This or tasha reflects the patients wishes and were consensually agreed upon. Question Answer Comments Discussion of Advance Directives occurred with: Not Discussed Does the patient have a Living Will? No Does the patient have Health Care Power of Control Director? No Care Teams Uppers Edge Burnisher Relationship Specialty Start Date End Date Albertina Askew DO [address], [place] [phone] PCP - General Family Medicine 05/03/20 documented as of this encounter
--- OUTSIDE RECORDS SUMMARY | 2023-11-24 05:27 | External Medical Summary | Summary of Care ---
Author Name Unknown Organization [facility] Address [address] [place] [address] Phone [phone] Care Team Providers Care Associate Music Professor Name Role Phone Albertina Askew Primary Care Provider Encounter Details Date Type Department Care Team (Late st Contact Info) Description 11/16/2023 Telephone General Internal Medicine [facility] [address] [facility] [place] [address] Ranjit Barajas PA-C [facility] [place] [address] Allergies Active Allergy Reactions Criticality Noted Date [...] by mouth in the morning. 0 Active [place]-3 Fatty Acids (OMEGA-3 CF) 1000 MG CAPS [...] mRNA, LNP-s, No Pre serve, 2-Dose Series ([employer]) 10/13/2021,02/01/2021,01/11/2021 COVID-19, LNP-s, No Preserve , Akhil-sucrose, Ages 12+ (Pfizer) 03/19/2022 Covid-19, Mrna, Lnp-s, Pf, B ivalent, 30 Mcg, IM, 12 yrs and above (Pfizer) 09/04/2022 Pneumococcal Conjugate Vacci ne, 20-valent ([id number]) 06/07/2023 Pneumococcal Polysaccharide PPV23 (Pneumovax) 04/17/2022,11/07/2019 Seasonal [...] encounter Miscellaneous Notes * Telephone Encounter - Sherita Garrison OSA - 11/17/2023 12:59 PM EST Is there anything arnold to get pt in sooner if not I will send referral to [facility] * Telephone Encounter - Hillary Méndez LPN - 11/17/2023 12:17 PM EST Patient aware and verbalized understanding Is willing to see [place] urology - please assist with referral * Telephone Encounter - Ranjit Barajas PA-C - 11/16/2023 12:02 PM EST Patient did not read [employer] message. Still has blood in urine. Would like her to see urology sooner than June. See if willing to see [facility]. documented in this encounter Plan of Treatment Upcoming Encounters Date Type Department Care Team (Late st Contact Info) Description 12/08/2023 9:30 AM EST Office Visit [facility] [address] [place] [phone] Albertina Askew DO [address] [place] [address] 06/27/2024 8:00 AM EDT Office Visit Urology, [facility] 132 [facility] [place] [address] Gino Dawkins MD 27 [facility] [address] [place] [address] 08/23/2024 9:40 AM EDT Appointment Radiology, [place] [address] [place] [phone] 08/23/2024 11:30 AM EDT Office Visit General Surgery, [place] [address] [place] [address] Bola Haji MD [address] [place] [address] Health Maintenance Due Date Last Done Comments [...] 08/31/2028 08/31/2018, 05/24/2008 DXA Scan 01/20/2029 01/20/2022, 11/2021, 08/01/2018, Additional history exists Colonoscopy 09/01/2031 09/01/2021, [...] this encounter Medical Devices Implanted Type Area Screw Machine Operator Swiss Type Device Identifier Shelf Expiration Date Model / Serial / Lot Lens Intraoc 20.5 - [id number] - [id number] Implanted:Qty: 1 on 05/16/2020 by Fer Guzman MD at OR [facility] Left: Eye BAUSCH & LOMB 10/21/2024 [id number] / [id number] / [id number] Lens Intraoc 22.0 - [id number] - [id number] Implanted:Qty: 1 on 06/04/2020 by Fer Guzman MD at OR [facility] Right: Eye BAUSCH & LOMB 10/21/2024 [id number] / [id number] / Allomax Mesh 2 X 4 [id number] - [id number] - [id number] Implanted:Qty: 1 on 12/24/2021 by Bola Haji MD at OR [facility] [place] N/A: Abdomen CR BARD : DAVOL 01/19/2026 [id number] / [id number] / [id number] documented as of this encounter Advance Directives [...] the patient have Health Care Power of Roll Panner? No Care Teams Associate Music Professor Relationship Specialty Start Date End Date Albertina Askew DO [address] [facility] [place] [address] PCP - General Family Medicine 05/03/20 documented as of this encounter
--- OUTSIDE RECORDS SUMMARY | 2023-11-24 05:27 | External Medical Summary | Summary of Care ---
Author Name Unknown Organization [facility] Address [address] [place] [address] Phone [phone] Care Team Providers Care Internal Wholesaler Name Role Phone Albertina Askew Primary Care Provider Encounter Details Date Type Department Care Team (Late st Contact Info) Description 11/16/2023 Telephone General Internal Medicine [facility] [address] [facility] [place] [address] Ranjit Barajas PA-C [facility] [place] [address] Allergies Active Allergy Reactions Criticality Noted Date [...] by mouth in the morning. 0 Active [place]-3 Fatty Acids (OMEGA-3 CF) 1000 MG CAPS [...] mRNA, LNP-s, No Pre serve, 2-Dose Series ([employer]) 10/13/2021,02/01/2021,01/11/2021 COVID-19, LNP-s, No Preserve , Akhil-sucrose, Ages 12+ (Pfizer) 03/19/2022 Covid-19, Mrna, Lnp-s, Pf, B ivalent, 30 Mcg, IM, 12 yrs and above (Pfizer) 09/04/2022 Pneumococcal Conjugate Vacci ne, 20-valent ([id number]) 06/07/2023 Pneumococcal Polysaccharide PPV23 (Pneumovax) 04/17/2022,11/07/2019 Seasonal [...] Encounter - Sherita Garrison OSA - 11/17/2023 2:33 PM EST Printed and faxed * Telephone Encounter - Pa Cade OSA - 11/17/2023 1:22 PM EST There aren't any soon appts with Dr. Dawkins here at [facility]. [facility] would be the best recommendation to be seen soon. * Telephone Encounter - Sherita Garrison OSA - 11/17/2023 12:59 PM EST Is there anything arnold to get pt in sooner if not I will send referral to [facility] * Telephone Encounter - Hillary Méndez LPN - 11/17/2023 12:17 PM EST Patient aware and verbalized understanding Is willing to see [place] urology - please assist with referral * Telephone Encounter - Ranjit Barajas PA-C - 11/16/2023 12:02 PM EST Patient did not read [employer] message. Still has blood in urine. Would like her to see urology sooner than June. See if willing to see [facility]. documented in this encounter Plan of Treatment Upcoming Encounters Date Type Department Care Team (Late st Contact Info) Description 12/08/2023 9:30 AM EST Office Visit [facility] [address] [place] [phone] Albertina Askew DO [address] [place] [address] 08/23/2024 9:40 AM EDT Appointment Radiology, [place] [address] [place] [phone] 08/23/2024 11:30 AM EDT Office Visit General Surgery, [place] [address] [place] [address] Bola Haji MD [address] [place] [address] Health Maintenance Due Date Last Done Comments [...] 08/31/2028 08/31/2018, 05/24/2008 DXA Scan 01/20/2029 01/20/2022, 03/0 11/2021, 08/01/2018, Additional history exists Colonoscopy 09/01/2031 [...] this encounter Medical Devices Implanted Type Area Superintendent [employer] Device Identifier Shelf Expiration Date Model / Serial / Lot Lens Intraoc 20.5 - [id number] - [id number] Implanted:Qty: 1 on 05/16/2020 by Fer Guzman MD at OR [facility] Left: Eye BAUSCH & LOMB 10/21/2024 [id number] / [id number] / [id number] Lens Intraoc 22.0 - [id number] - [id number] Implanted:Qty: 1 on 06/04/2020 by Fer Guzman MD at OR [facility] Right: Eye BAUSCH & LOMB 10/21/2024 [id number] / [id number] / Allomax Mesh 2 X 4 [id number] - [id number] - [id number] Implanted:Qty: 1 on 12/24/2021 by Bola Haji [place] [facility] [place]/A: Abdomen CR BARD : DAVOL 01/19/2026 [id number] / [id number] / [id number] documented as of this encounter Advance Directives [...] the patient have Health Care Power of Slots Manager? No Care Teams Internal Wholesaler Relationship Specialty Start Date End Date Albertina Askew DO [address] [facility] [place] [address] PCP - General Family Medicine 05/03/20 documented as of this encounter
--- OUTSIDE RECORDS SUMMARY | 2023-11-24 05:27 | External Medical Summary | Summary of Care ---
Author Name Unknown Organization [facility] Address [address] [place] [address] Phone [phone] Care Team Providers Care Getter Operator Name Role Phone Albertina Askew Primary Care Provider [phone] Encounter Details Date Type Department Care Team (Late st Contact Info) Description 11/08/2023 Orders Only General Surgery, [place] [address], [place] [phone] Narciso Licea, LIZETH [address] [place], [place] [phone] Postgastric surgery syndrome*; Paraesophageal hernia Allergies Active Allergy Reactions Criticality Noted Date Comments Nitrofurantoin Macrocrystal Hives 01/31/20 19 Scopolamine 12/18/2022 Long withdrawal symptom Sulfa Antibiotics 06/04/2008 RASH documented as of this encounter (statuses as of 11/08/2023) Medications Medication Sig Dispensed Refills Start Date End Date Status Multiple Vitamins-Minerals (MULTIVITAMIN ADULT EXTRA C) CHEW Take by mouth daily. 0 Active Calcium Carb-Cholecalcifero l 600-800 MG-UNIT Oral Tablet Take 1 Tablet by mouth in the morning. 0 Active [place]-3 Fatty Acids (OMEGA-3 CF) 1000 MG CAPS [...] as of this encounter (statuses as of 11/08/2023) Active Problems Problem Noted Date Diagnosed Date GERD (gastroesophageal reflux disease) 2 Paraesophageal hernia 12/24/2021 Iron deficiency anemia 08/18/2021 Hand pain 08/10/2017 Trigger middle finger of left hand 08/10/2017 documented as of this encounter (statuses as of 11/08/2023) Resolved Problems Problem Noted Date Diagnosed Date [...] as of this encounter (statuses as of 11/08/2023) Immunizations Name Administration Dates Next Due COVID-19 mRNA, LNP-s, No Pre serve, 2-Dose Series ([employer]) 10/13/2021,02/01/2021,01/11/2021 COVID-19, LNP-s, No Preserve , Akhil-sucrose, Ages 12+ (Pfizer) 03/19/2022 Covid-19, Mrna, Lnp-s, Pf, B ivalent, 30 Mcg, IM, 12 yrs and above (Pfizer) 09/04/2022 Pneumococcal Conjugate Vacci ne, 20-valent ([id number]) 06/07/2023 Pneumococcal Polysaccharide PPV23 (Pneumovax) 04/17/2022,11/07/2019 Seasonal [...] No 12/24/2021 documented as of this encounter Plan of Treatment Upcoming Encounters Date Type Department Care Team (Late st Contact Info) Description 12/08/2023 9:30 AM EST Office Visit [facility] [address] [facility] [phone] Albertina Askew DO [address] [facility] [place] [address] 06/27/2024 8:00 AM EDT Office Visit Urology, [address] [place] [address] Gion Dawkins MD 27 [facility] [place] [address] [place] [address] Scheduled Orders Name Type Priority Associated Diagnoses Orde r Schedule FLUORO UGI SINGLE CONTRAST Medical Imaging Routine Postgastric surgery syndrome Paraesophageal hernia Ordered: 11/08/2023 Health Maintenance Due Date Last Done Comments [...] this encounter Medical Devices Implanted Type Area Steam Pressure Chamber Operator Device Identifier Shelf Expiration Date Model / Serial / Lot Lens Intraoc 20.5 - [id number] - [id number] Implanted:Qty: 1 on 05/16/2020 by Fer Guzman MD at OR [facility] Left: Eye BAUSCH & LOMB 10/21/2024 [id number] / [id number] / [id number] Lens Intraoc 22.0 - [id number] - [id number] Implanted:Qty: 1 on 06/04/2020 by Fer Guzman MD at OR [facility] Right: Eye BAUSCH & LOMB 10/21/2024 [id number] / [id number] / Allomax Mesh 2 X 4 [id number] - [id number] - [id number] Implanted:Qty: 1 on 12/24/2021 by Bola Haji MD [place] [facility]/A: Abdomen CR BARD : DAVOL 01/19/2026 [id number] / [id number] / [id number] documented as of this encounter Visit Diagnoses Diagnosis Postgastric surgery syndrome- Primary Postgastric surgery syndromes Paraesophageal hernia Diaphragmatic hernia without mention of obstruction or gangrene documented in this encounter Advance Directives Latest [...] the patient have Health Care Power of Filter Cloth Maker? No Care Teams Getter Operator Relationship Specialty Start Date End Date Albertina Askew DO [address] [facility] [place] [address] PCP - General Family Medicine 05/03/20 documented as of this encounter
--- OUTSIDE RECORDS SUMMARY | 2023-11-24 05:27 | External Medical Summary | Summary of Care ---
Author Name Unknown Organization [facility] Address [address] [place] [address] Phone [phone] Care Team Providers Care Weight Loss Centre Manager Name Role Phone Albertina Askew Primary Care Provider [phone] Reason for Visit * Reason Comments Outpatient Testing Encounter Details Date Type Department Care Team (Late st Contact Info) Description 11/09/2023 11:40 AM EST Laboratory Laboratory, [facility] [address] [facility] [place] [phone] [facility] [address] [facility] [place] [address] Other microscopic hematuria; Acute cystitis with hematuria Allergies Active Allergy Reactions Criticality Noted Date Comments Nitrofurantoin Macrocrystal Hives 01/31/20 19 Scopolamine 12/18/2022 Long withdrawal symptom Sulfa Antibiotics 06/04/2008 RASH documented as of this encounter (statuses as of 11/09/2023) Medications Medication Sig Dispensed Refills Start Date End Date Status Multiple Vitamins-Minerals (MULTIVITAMIN ADULT EXTRA C) CHEW Take by mouth daily. 0 Active Calcium Carb-Cholecalcifero l 600-800 MG-UNIT Oral Tablet Take 1 Tablet by mouth in the morning. 0 Active Henrietta-3 Fatty Acids (OMEGA-3 CF) 1000 MG CAPS [...] as of this encounter (statuses as of 11/09/2023) Active Problems Problem Noted Date Diagnosed Date GERD (gastroesophageal reflux disease) 2 Paraesophageal hernia 12/24/2021 Iron deficiency anemia 08/18/2021 Hand pain 08/10/2017 Trigger middle finger of left hand 08/10/2017 documented as of this encounter (statuses as of 11/09/2023) Resolved Problems Problem Noted Date Diagnosed Date [...] as of this encounter (statuses as of 11/09/2023) Immunizations Name Administration Dates Next Due COVID-19 mRNA, LNP-s, No Pre serve, 2-Dose Series (Pfizer) 10/13/2021,02/01/2021,01/11/2021 COVID-19, LNP-s, No Preserve , Akhil-sucrose, Ages 12+ (Pfizer) 03/19/2022 Covid-19, Mrna, Lnp-s, Pf, B ivalent, 30 Mcg, IM, 12 yrs and above (Pfizer) 09/04/2022 Pneumococcal Conjugate Vacci ne, 20-valent ([id number]) 06/07/2023 Pneumococcal Polysaccharide PPV23 (Pneumovax) 04/17/2022,11/07/2019 Seasonal [...] Description 12/08/2023 9:30 AM EST [facility] [address] [facility] [phone] Albertina Askew DO [address] [facility] [address] 06/27/2024 8:00 AM EDT Office Visit Urology, [facility] [address] [facility] [place] [address] Gino Dawkins MD [address] [facility] [address] [place] [address] 08/23/2024 9:40 AM EDT Appointment Radiology, [place] [address] [place] [address] 08/23/2024 11:30 AM EDT Office Visit General Surgery, [place] [address] [place] [address] Bola Haji MD [address] [place] [address] Pending Results Name Type Priority Associated Diagnoses Date /Time BASIC METABOLIC PANEL Lab Routine Other microscopic hematuria 11/09/2023 11:10 AM EST URINALYSIS, REFLEX TO MICROSCOPIC Lab Routine Acute cystitis with hematuria 11/09/2023 11:13 AM EST MICROSCOPIC EXAM, URINE Lab Routine Acute cystitis with hematuria 11/09/2023 11:13 AM EST Health Maintenance Due Date Last Done Comments [...] this encounter Medical Devices Implanted Type Area Java Software Device Identifier Shelf Expiration Date Model / Serial / Lot Lens Intraoc 20.5 - [id number] - [id number] Implanted:Qty: 1 on 05/16/2020 by Fer Guzman MD at OR [facility] Left: Eye BAUSCH [employer] LOMB 10/21/2024 [id number] / [id number] / [id number] Lens Intraoc 22.0 - [id number] - [id number] Implanted:Qty: 1 on 06/04/2020 by Fer Guzman MD at OR [facility] Right: Eye BAUSCH [employer] LOMB 10/21/2024 [id number] / [id number] / Allomax Mesh 2 X 4 [id number] - [id number] - [id number] Implanted:Qty: 1 on 12/24/2021 by Bola Haji MD at OR [facility] N/A: Abdomen CR BARD : DAVOL 01/19/2026 [id number] / [id number] documented as of this encounter Visit Diagnoses Diagnosis Other microscopic hematuria Acute cystitis with hematuria Acute cystitis documented in this encounter Advance Directives Latest [...] the patient have Health Care Power of Support Associate? No Care Teams Weight Loss Centre Manager Relationship Specialty Start Date End Date Albertina Askew DO [address] [place] [address] PCP - General Family Medicine 05/03/20 documented as of this encounter
[2023-11-24 05:28] LABS: Hemoglobin 13.7 g/dl (12.0-16.0); Mean Corpuscular Hemoglobin 30.1 pg (25.0-34.0); Mean Corpuscular Hgb Conc 33.4 g/dL (32.0-36.0); Mean Corpuscular Volume 90.1 fL (80.0-100.0); Platelet Count 183 K/uL (130-400); RDW Coefficient of Variation 12.6 % (11.5-14.5); RDW Standard Deviation 41.5 fL (36.4-46.3); Red Blood Count 4.55 M/uL (4.20-5.40); White Blood Count 9.01 K/ul (4.8-10.8)
--- OUTSIDE RECORDS SUMMARY | 2023-11-24 05:28 | External Medical Summary ---
Author Name Unknown Address Unknown Organization K01:LABORATORY [facility] [place] - [address] [place] [address] Laboratory Report Ordering Provider Test Date Status PATITOSANDRA 06/17/2023 07:51:17 Final Observation Date Value Abnormality Reference (Units ) Status Iron 06/17/2023 07:51:17 95 33-151 (ug /dL) Final Iron-binding capacity 06/17/2023 07:51:17 345 250-425 (ug/dL) Final Transferrin Sat % 06/17/2023 07:51:17 28 15 -55 (%) Final Performing Location LABORATORY C - [address] [place] [address]
--- OUTSIDE RECORDS SUMMARY | 2023-11-24 05:28 | External Medical Summary | Summary of Care ---
Author Name Unknown Organization [facility] Address [address] [place] [facility] [place] [facility] [place] [address] Phone [phone] Care Team Providers Care Bronzer Name Role Phone Albertina Askew Primary Care Provider Reason for Visit * Reason Onset Date Comments Medication Administration 09/08/2023 Flu an d/or Pneumo Inj Encounter Details Date Type Department Care Team Description 09/08/2023 Office Visit Gastroenterology, [facility] [address] [place] [address] Kiah Loyd CRNP [address] [place] [address] Loose stools* Allergies Active Allergy Reactions Severity Noted Date Comments Nitrofurantoin Macrocrystal Hives 01/31/20 19 Scopolamine 12/18/2022 Long withdrawal symptom Sulfa Antibiotics 06/04/2008 RASH documented as of this encounter (statuses as of 09/08/2023) Medications Medication Sig Dispensed Refills Start Date End Date Status nystatin (NYSTOP) 783925 UNIT/GM powder Apply topically to affected area 2 times a day. Apply to affected area 15 g 3 06/14/2019 Active Additional Information Patient not taking.Reported on 06/07/2023 Multiple Vitamins-Minerals (MULTIVITAMIN ADULT EXTRA C) CHEW Take by mouth daily. 0 Active Calcium Carb-Cholecalcifero l 600-800 MG-UNIT Oral Tablet Take 1 Tablet by mouth in the morning. 0 Active [place]-3 Fatty Acids (OMEGA-3 CF) 1000 MG CAPS [...] COLD SORE 12 Tablet 1 06/07/2023 Active Colestipol HCl 1 GM Oral Tablet (Colestid) Take 1 to 2 tablets by mouth with lunch every day 60 Tablet 5 06/07/2023 Active Additional Information Patient not taking.Reported on 09/08/2023 Vitamin D (Cholecalciferol) 25 MCG (1000 UT) Oral Capsule Take by mouth every evening. 0 Active Fiber Formula Oral Capsule Take 2 Capsules by mouth. 0 Active documented as of this encounter (statuses as of 09/08/2023) Active Problems Problem Noted Date GERD (gastroesophageal reflux disease) 0 12/25/2021 Paraesophageal hernia 12/24/2021 Iron deficiency anemia 08/18/2021 Hand pain 08/10/2017 Trigger middle finger of left hand 08/10 documented as of this encounter (statuses as of 09/08/2023) Resolved Problems Problem Noted Date Resolved Date Chronic kidney disease, stage 3a 01/05/2022 12/18/2022 Overview: Per CKD protocol Herpetic gingivostomatitis 04/07/201108/11 Acute bronchitis, complicated 03/12/2010 ADVANCE DIRECTIVE INFORMATION 04/06/2007 Overview: Information given to patient at a previous visit. Contact with or exposure to other viral diseases (V01.79) 09/01/2004 05/18/2017 Uterine leiomyoma 01/11/2004 11/04/2018 VIRAL DIS CONTACT NEC 04/11/2002 10/05/2006 FAM HX-DIABETES MELLITUS 04/11/2002 018 Excessive menstruation 7 documented as of this encounter (statuses as of 09/08/2023) Immunizations Name Administration Dates Next Due COVID-19 mRNA, LNP-s, No Pre serve, 2-Dose Series (ImmuneXcite) 10/13/2021,02/01/2021,01/11/2021 COVID-19, LNP-s, No Preserve , Akhil-sucrose, Ages 12+ (Pfizer) 03/19/2022 Covid-19, Mrna, Lnp-s, Pf, B ivalent, 30 Mcg, IM, 12 yrs and above (ImmuneXcite) 09/04/2022 Pneumococcal Conjugate Vacci ne, 20-valent ([id number]) 06/07/2023 Pneumococcal Polysaccharide PPV23 (Pneumovax) 04/17/2022,11/07/2019 SEASONAL INFLUENZA, PF, 6 M & Above, IM , (FLULAVAL or FLUZONE) 09/10/2020,07/20/2019,08/31/2018,08/17 Seasonal Influenza, Quadriva lent Hd (Fluzone [...] = 0.6 oz pur e alcohol) occasional Food Insecurity Answer Date Recorded Within the past 12 months, y ou worried that your food would run out before you got money to buy more. Never true 06/03/2023 Within the past 12 months, t he food you bought just didn't last and you didn't have money to get more. Never true 06/03/2023 Sex Assigned at Date Recorded Female 04/09/2022 9:26 PM E DT Job Start Date Occupation Industry Not on file Not on file Not on file documented as of this encounter Last Filed Vital Signs Vital Sign Reading Time Taken Comments Blood Pressure 121/77 09/08/2023 9:48 AM EDT Pulse 65 09/08/2023 9:48 AM EDT Temperature 36.5 C (97.7 F) 09/08/2023 9:48 AM ED T Respiratory Rate 18 09/08/2023 9:48 AM EDT Oxygen Saturation - - Inhaled Oxygen Concentration - - Weight 68.5 kg (151 lb 1.6 oz) 09/08/2023 9:48 A M EDT Height - - Body Mass Index 26.14 06/07/2023 3:14 PM EDT documented in this encounter Functional Status Functional Status Response [...] shopping? (15 years old or older) No 02/02/20 22 Cognitive Status Response Date of Assessm ent Because of a physical, menta l, or emotional condition, do you have serious difficulty concentrating, remembering, or making decisions? (5 years old or older No 12/24/2021 documented as of this encounter Patient Instructions * Patient Instructions* Marya Alberto RN - 09/08/2023 9:53 AM EDT ~~PATIENT INSTRUCTIONS FOR FLU SHOT~~ Possible side effects of influenza vaccine, (flu shot), are usually mild and include: 1. Soreness or redness at injection site 2. Low grade fever 3. Body aches You may use Tylenol/Acetaminophen as needed for these symptoms. LET YOUR DOCTOR KNOW IMMEDIATELY IF YOU HAVE DIFFICULTY BREATHING OR SWALLOWING, EXPERIENCE ITCHINGOF FEET OR HANDS, HAVE SWELLING OF EYES, FACE OR INSIDE OF NOSE. documented in this encounter Progress Notes * THEODORE Narayan - 09/08/2023 10:02 AM EDT Images from the original note were not included. History of Present Illness CC: F/u for urgent loose BMs HPI: Recall that Ms. Purnima Reid is a 68 yr old female pt of Dr. Azar yee hx of [place] who was seen in GI clinic in May for above issues and colestipol was prescribed; imodium continued Current GI Meds: 2 fiber caps/day Imodium 1 pill if needed Colestid pills were too big to take, only took once. Current GI Symptoms: Better. About once a week, has a very urgent loose BM, usually only one BM. Worse if drinks coffee. Gets some cramping pain after eating ice cream, otherwise no pain. No blood in BMs, no unexplained weight loss, no unexplained weight loss. Colonoscopy Aug 2021 - Diverticulosis in the sigmoid colon. The examination was otherwise normal. No specimens collected. Stool studies: May 2023- for C diff and GI pathogen EGD 2021: - Large hiatal hernia with Armando erosions. Could explain iron deficiency anemia. - Normal small bowel enteroscopy into the jejunum with no AVMs. EGD 2021: - Normal mucosa was found in the entire esophagus. - A Tarun fundoplication was found. The wrap appears intact. - Normal mucosa was found in the entire stomach. - No specimens collected. Labs 2020: tTG (-) Physical Exam BP 121/77 | Pulse 65 | Temp 36.5 C (97.7 F) (Infrared ) | Resp 18 | Wt 68.5 kg (151 lb 1.6 oz) | LMP 12/23/2005 | BMI 26.14 kg/m | BSA 1.76 m GENERAL: 68 year old female well developed and well nourished in no acute distress SKIN: no rashes, ulcers, or spider angiomata HEENT: normocephalic, sclera clear, pharynx normal NECK: supple, no lymphadenopathy, no masses or thyroid enlargement LUNGS: clear to auscultation anterior and posterior HEART: regular rate & rhythm, no murmurs and no gallops ABDOMEN: normo-active bowel sounds, soft, non-tender, non-distended no masses, no hepatosplenomegaly, no rebound or guarding, no bruits EXTREMITIES: no palmar erythema, no edema, no skin discoloration, no clubbing, no cyanosis NEURO: no lateralizing findings, Sensory/Motor grossly normal IMPRESSION/RECOMMENDATIONS: 68 year old female with loose BMs, w/o alarm signal and having undergone a fairly recent normal colonoscopy. Continue avoidance of dairy, coffee. Continue fiber, Imodium prn. If any alarm signals: blood in BMs, black BMs, night time wakening for defecation, significant abdominal pain or unexplained weight loss, pt to contact us and we will arrange colonoscopy or other testing as appropriate. Loose stools (Primary) Other orders - INFLUENZA VACC, QUAD, HIGH DOSE (FLUZONE HD) Recheck on an as needed basis. Time: I spent a total of 10-19 minutes (exact time 17 mins) on the date of service in preparation, delivery, and documentation of the care provided to Purnima Reid excluding any time spent in the performance of separately billed services. THEODORE Narayan * Marya Alberto RN - 09/08/2023 9:53 AM EDT PRE - ADMINISTRATION DOCUMENTATION Are you experiencing any cold symptoms or fever? No Have you had Guillain-[place]le[place] Syndrome (an illness that causes paralysis) within the last 6 weeks? No Have you had the flu shot in the past? YES Have you ever had a reaction to the flu shot? No Marya Alberto RN, 09/08/2023 9:53 AM Immunization Administration Documentation Time Out Procedure Performed: Yes Patient Identified (Ask Name/Date of ): Yes Does the patient have a fever greater than 101 degrees today? No Patient allergic to latex? No VFC Stock: No Immunization(s) verified: Yes, Immunization Name: Flu, VIS Sheet(s) given: Yes Verified Side and Site: Yes Verified Shot(s) with Parent(s)/Patient: Yes documented in this encounter Nursing Notes * Marya Alberto RN - 09/08/2023 9:51 AM EDT Chief Complaint Patient presents with Follow Up Is using a fiber capsules daily. Has occasional episodes of urgency and diarrhea. Stools otherwise are very soft, not formed. No n/v. No blood in stools. documented in this encounter Plan of Treatment Upcoming Encounters Date Type Specialty Care Team Description 11/05/2023 Telemedicine General Surgery Bola Haji MD [address] [place] [address] 12/08/2023 Office Visit Family Medicine Albertina Askew, [address], [place] [phone] Health Maintenance Due Date Last Done Comments Cologuard 1999 Fecal Occult Blood Test 1999 04/02/1998 Sigmoidoscopy 1999 Zoster Vaccines (2 of 3) 11/20/2014 09/25/2014 Depression Screening 10/30/2022 10/30/2021 COVID-19 Vaccine ( season) 2023 09/04/2022, 03/19/2022, 10/13/2021, Additional history exists Mammogram 06/17/2024 06/17/2023, 07/0 05/2022, 05/11/2022, Additional history exists Diabetes Screening 06/17/2026 06/17/2023, 0 12/18/2022, 04/17/2022, Additional history exists Lipid Panel 04/17/2027 04/17/2022, 11/23, 10/05/2018, Additional history exists DTaP,Tdap,and Td Vaccines (3 - Td or Tdap) 08/31/2028 08/31/2018, 05/24/2008 DXA Scan 01/20/2029 01/20/2022, 07/23, 12/24/2014, Additional history exists Colonoscopy 09/01/2031 09/01/2021, 08/22, [...] this encounter Medical Devices Implanted Type Area Equal Opportunity Representative Device Identifier Shelf Expiration Date Model / Serial / Lot Lens Intraoc 20.5 - [id number] - [id number] Implanted:Qty: 1 on 05/16/2020 by Fer Guzman MD at OR [facility] Left: Eye BAUSCH [employer] LOMB 10/21/2024 [id number] / [id number] / [id number] Lens Intraoc 22.0 - [id number] - [id number] Implanted:Qty: 1 on 06/04/2020 by Fer Guzman MD at OR [facility] Right: Eye BAUSCH & LOMB 10/21/2024 [id number] / [id number] / Allomax Mesh 2 X 4 [id number] - [id number] - [id number] Implanted:Qty: 1 on 12/24/2021 by Bola Haji MD at OR [facility] N/A: Abdomen CR BARD : DAVOL 01/19/2026 [id number] / [id number] / [id number] documented as of this encounter Visit Diagnoses Diagnosis Loose stools- Primary Abnormal feces documented in this encounter Advance Directives Latest [...] the patient have Health Care Power of Billing Department Supervisor? No Care Teams Bronzer Relationship Specialty Start Date End Date Albertina Askew, [address] [place], [place] [phone] PCP - General Family Medicine 05/03/20 documented as of this encounter"
--- OUTSIDE RECORDS SUMMARY | 2023-11-24 05:28 | External Medical Summary ---
Author Name Unknown Address Unknown Organization [id number]:[place] [place] [address] [place] [id number] Laboratory Report Ordering Provider Test Date Status MARTIN BECERRA 06/08/2023 14:42:13 Final Observation Date Value Abnormality Reference (Units) Status Bacteria identified in Unspecified specimen by Culture 06/08/2023 14:42:13 No Aeromonas species or Plesiomonas species isolated. Final Test: Gastrointestinal Patho gen Panel Culture
Specimen Source: Stool
Specimen Type: Stool
Specimen Date: 06/08/2023 2:42 PM
Result Date: 06/11/2023 10:46 AM
Result Status: Final result
Resulting Lab: [facility] [place]
[address]
[place] [id number]

CULTURE

No Aeromonas species or Plesiomonas species isolated.

null Performing Location [facility] [place] [address] [place] [id number]
--- OUTSIDE RECORDS SUMMARY | 2023-11-24 05:28 | External Medical Summary ---
Author Name Unknown Address Unknown Organization [id number]:LABORATORY [facility] [place] - [address] [place] [id number] Laboratory Report Ordering Provider Test Date Status RITA STORY 10/13/2023 10:05:54 Final Observation Date Value Abnormality Reference (Units) Status Bacteria identified in Specimen by Culture 10/13/2023 10:05:54 No significant growth Final Test: Culture, Urine, Quanti tative
Specimen Source: Urine, Clean Catch
Specimen Type: Urine
Specimen Date: 10/13/2023 10:05 AM
Result Date: 10/14/2023 12:27 PM
Result Status: Final result
Resulting Lab: LABORATORY [facility]
[address]
[place] [id number]

CULTURE

No significant growth

null Performing Location LABORATORY [facility] [place] - [address] [facility] [address]
--- OUTSIDE RECORDS SUMMARY | 2023-11-24 05:28 | External Medical Summary | Summary of Care ---
Author Name Unknown Organization [facility] Address [address] [place] [address] Phone [phone] Care Team Providers Care Region Manager Name Role Phone Albertina Askew DO Primary Care Provider Reason for Visit * Reason Onset Date Comments Re-Check 6 month recheck. Pt is having IBS sx and today has left ear pain. Medication Administration 06/07/2023 Flu an d/or Pneumo Inj Encounter Details Date Type Department Care Team Description 06/07/[address] [facility] [address] [place] [address] Albertina Askew DO [address] [place] [address] Iron deficiency anemia, unspecified iron deficiency anemia type*; Recurrent cold sores; Rhiannon infection; Vaccine for streptococcus pneumoniae and influenza Allergies Active Allergy Reactions Severity Noted Date Comments Nitrofurantoin Macrocrystal Hives 01/31/20 19 Scopolamine 12/18/2022 Long withdrawal symptom Sulfa Antibiotics 06/04/2008 RASH documented as of this encounter (statuses as of 06/07/2023) Medications Medication Sig Dispensed Refills Start Date End Date Status nystatin (NYSTOP) 763363 UNIT/GM powder Apply topically to affected area 2 times a day. Apply to affected area 15 g 3 06/14/2019 Active Additional Information Patient not taking.Reported on 06/07/2023 Multiple Vitamins-Minerals (MULTIVITAMIN ADULT EXTRA C) CHEW Take by mouth daily. 0 Active Calcium Carb-Cholecalcife rol 600-800 MG-UNIT Oral Tablet Take 1 Tablet by mouth in the morning. 0 Active Ingram-3 Fatty Acids (OMEGA-3 CF) 1000 MG CAPS [...] Omeprazole 20 MG Oral Capsule Delayed Release (PriLOSEC)Indicat ions:Gastroesopha geal reflux disease without esophagitis take 1 capsule by mouth every morning 1 hour before breakfast 90 Capsule 2 03/04/2023 Active Digestive Advantage Oral Capsule Take by mouth. Combination of probiotics with lactose support. 0 Active valACYclovir HCl 1 GM Oral Tablet (Valtrex)Indicati ons:Recurrent cold sores take 2 tablets by mouth every morning and 2 tablets at bedtime for COLD SORE 12 Tablet 1 06/07/2023 Active Clotrimazole 1 % External Cream (Lotrimin AF)Indications:Ca ndida infection Apply topically to affected area 2 times a day for 28 days. To affected area for up to 4 weeks. 15 g 0 06/07/2023 3 Active Additional Information Patient not taking.Reported on 06/07/2023 Cholecalciferol (VITAMIN D3) 50 MCG (2000 UT) Capsule Take 1 Capsule by mouth in the morning. 0 3 Discontinue d(Medicatio n List Clean Up) Probiotic Product (PROBIOTIC ACIDOPHILUS BIOBEADS) Capsule Take 1 Cap by mouth daily. 0 3 Discontinue d(Medicatio n List Clean Up) Vitamin B-12 1000 MCG Oral Tablet Take 1 Tablet by mouth in the morning. 0 3 Discontinue d(Medicatio n List Clean Up) Diclofenac Sodium 75 MG Oral Tablet Delayed Release (Voltaren) TAKE ONE TABLET BY MOUTH IN THE MORNING AND ONE TABLET BEFORE BEDTIME WITH FOOD 60 Tablet 3 10/19/2022 3 Discontinue d(Medicatio n List Clean Up) valACYclovir HCl 1 GM Oral Tablet (Valtrex) take 2 tablets by mouth every morning and 2 tablets at bedtime for COLD SORE 12 Tablet 1 12/22/2022 3 Discontinue d(Refill) documented as of this encounter (statuses as of 06/07/2023) Active Problems Problem Noted Date GERD (gastroesophageal reflux disease) 0 12/25/2021 Paraesophageal hernia 12/24/2021 Iron deficiency anemia 08/18/2021 Hand pain 08/10/2017 Trigger middle finger of left hand 08/10 documented as of this encounter (statuses as of 06/07/2023) Resolved Problems Problem Noted Date Resolved Date [...] as of this encounter (statuses as of 06/07/2023) Immunizations Name Administration Dates Next Due COVID-19 mRNA, LNP-s, No Pre serve, 2-Dose Series (SteelBrick) 10/13/2021,02/01/2021,01/11/2021 COVID-19, LNP-s, No Preserve , Akhil-sucrose, Ages 12+ (Pfizer) 03/19/2022 Covid-19, Mrna, Lnp-s, Pf, B ivalent, 30 Mcg, IM, 12 yrs and above (Pfizer) 09/04/2022 Pneumococcal Conjugate Vacci ne, 20-valent ([id number]) 06/07/2023 Pneumococcal Polysaccharide PPV23 (Pneumovax) 04/17/2022,11/07/2019 Seasonal Influenza, Quadriva lent Hd (Fluzone Hd) 09/07/2022,10/01/2021 Seasonal Influenza, Quadriva lent, No Preserve, 6 Mons & Above, IM 09/10/2020,07/20/2019,08/31/2018,08/17 Seasonal Influenza, Quadriva lent, No Preserve, IM 12/01/2016,10/24/2015 Seasonal Influenza, Split, I IV3, With Preserve, Inj 09/03/2014,09/04/2013,09/05/2012,09/21,11/03/2009,09/26/2008,10/05/2006 ,09/29/2005 TDAP (age 10 and older)(Boostrix) 08/31/2018 TDAP (age 11 and older)(Adacel) 05/24/2008 Varicella Zoster Vaccine (Adult) 09/25/2014 documented as of this encounter Social History Tobacco Use Types Packs/Day Years Used Date Smoking Tobacco: Never Passive Smoke Exposure: Past Smokeless Tobacco: Never Tobacco Cessation:Counseling Given: Not Answered Passive Exposure Comments:As a child Alcohol Use [...] Sign Reading Time Taken Comments Blood Pressure 110/66 06/07/2023 11:19 AM EDT Pulse 61 06/07/2023 11:19 AM EDT Temperature 36.5 C (97.7 F) 06/07/2023 11:19 AM E DT Respiratory Rate 18 06/07/2023 11:19 AM EDT Oxygen Saturation 96% 06/07/2023 11:19 AM EDT Inhaled Oxygen Concentration - - Weight 68 kg (149 lb 14.4 oz) 06/07/2023 11:19 A M EDT Height 165.1 cm (5' 5") 06/07/2023 11:19 AM EDT Body Mass Index 24.94 06/07/2023 11:19 AM EDT documented in this encounter Functional Status [...] this encounter Patient Instructions * Patient Instructions* Camille Dawkins LPN - 06/07/2023 12:09 PM EDT ~~PATIENT INSTRUCTIONS FOR PNEUMOCOCCAL VACCINE~~ Possible side effects of pneumococcal vaccine, (pneumonia shot), are usually mild and can include: 1. Soreness or redness at injection site 2. Low grade fever 3. Body aches You may use Tylenol/Acetaminophen as needed for these symptoms. LET YOUR DOCTOR KNOW IMMEDIATELY IF YOU HAVE DIFFICULTY BREATHING OR SWALLOWING, EXPERIENCE ITCHINGOF FEET OR HANDS, HAVE SWELLING OF EYES, FACE OR INSIDE OF NOSE. documented in this encounter Progress Notes * Camille Dawkins LPN - 06/07/2023 12:09 PM EDT Immunization Administration Documentation Time Out Procedure Performed: Yes Patient Identified (Ask Name/Date of ): Yes Does the patient have a fever greater than 101 degrees today? No Patient allergic to latex? No VFC Stock: No Immunization(s) verified: Yes, Immunization Name: Prevnar 20 (PCV20), VIS Sheet(s) given: Yes Verified Side and Site: Yes Verified Shot(s) with Parent(s)/Patient: Yes * Albertina Askew DO - 06/07/2023 11:41 AM EDT Subjective: Purnima Reid is a 67 year old female. Chief Complaint Patient presents with Re-Check 6 month recheck. Pt is having IBS sx and today has left ear pain. HPI: 67 year old female with below hx. She is having IBS issues. Hx of paraesophageal repair. Seeing GI this afternoon. She is having sudden urgency to move her bowels. At times does not completely empty. Left ear pain started this am. No drainage. Small spot under the R axilla that she would like looked at. PHM: Patient Active Problem List Diagnosis Code Hand pain M79.643 Trigger middle finger of left hand M65.332 Iron deficiency anemia D50.9 Paraesophageal hernia K44.9 GERD (gastroesophageal reflux disease) K21.9 Current Outpatient Medications Medication Sig Dispense Refill Calcium Carb-Cholecalciferol 600-800 MG-UNIT Oral Tablet Take 1 Tablet by mouth in the morning. Omeprazole 20 MG Oral Capsule Delayed Release (PriLOSEC) take 1 capsule by mouth every morning 1 hour before breakfast 90 Capsule 2 Digestive Advantage Oral Capsule Take by mouth. nystatin (NYSTOP) 121175 UNIT/GM powder Apply topically to affected area 2 times a day. Apply to affected area (Patient taking differently: Apply topically to affected area 2 times a day. Apply to affected area) 15 g 3 Multiple Vitamins-Minerals (MULTIVITAMIN ADULT EXTRA C) CHEW Take by mouth daily. Cholecalciferol (VITAMIN D3) 50 MCG (2000 UT) Capsule Take 1 Capsule by mouth in the morning. Ingram-3 Fatty Acids (OMEGA-3 CF) 1000 MG CAPS Take by mouth daily. Loratadine 10 MG Oral Tablet Take 1 Tablet by mouth in the morning. Ventolin HFA 108 (90 Base) MCG/ACT Inhalation Aerosol Solution Inhale 2 Puffs by mouth every 4 hours as needed for Wheezing. 18 g 0 Tums Extra Strength 750 750 MG Oral Tablet Chewable (calcium CARBonate) Take 2 Tablets by mouthas needed for Heartburn. Co Q 10 100 MG Oral Capsule Take by mouth. Diclofenac Sodium 75 MG Oral Tablet Delayed Release (Voltaren) TAKE ONE TABLET BY MOUTH IN THE MORNING AND ONE TABLET BEFORE BEDTIME WITH FOOD (Patient not taking: Reported on 12/18/2022) 60 Tablet 3 Scopolamine 1 MG/3DAYS Transdermal Patch 72 Hour (Transderm-Scop) Place 1 Patch topically on the skin every 3 days. 4 hours before event. May replace every 3 days. . (Patient not taking: Reportedon 12/18/2022) 4 Patch 1 valACYclovir HCl 1 GM Oral Tablet (Valtrex) take 2 tablets by mouth every morning and 2 tabletsat bedtime for COLD SORE 12 Tablet 1 No current facility-administered medications for this visit. Review of patient's allergies indicates: Allergen Reactions Macrobid [Nitrofurantoin Macrocrystal] Hives Scopolamine Long withdrawal symptom Sulfa Antibiotics RASH Objective: BP 110/66 | Pulse 61 | Temp 36.5 C (97.7 F) (Temporal Artery) | Resp 18 | Ht 1.651 m (5' 5") | Wt 68 kg (149 lb 14.4 oz) | LMP 12/23/2005 | SpO2 96% | BMI 24.94 kg/m | BSA 1.77 m Physical Exam: General: alert, healthy and no distress Ears: External ears normal, Canals clear, TM's Normal Nose: mucosal edema, mucosal erythema Neck: supple, no adenopathy Heart: regular rate & rhythm, no murmur and no gallops Lungs: chest symmetric with normal AP diameter, no chest deformities noted, no chest wall tenderness, lungs clear to auscultation Abdomen: abdomen soft, non-tender, normal bowel sounds and no masses or organomegaly Extremities: no edema Skin: clogged pore under the right axilla. This was drained tolerated well. ASSESSMENT/PLAN: Iron deficiency anemia, unspecified iron deficiency anemia type (Primary) - BASIC METABOLIC PANEL; Future; Expected date: 06/07/2023 - IRON SCREEN, INCLUDING TIBC; Future; Expected date: 06/07/2023 Recurrent cold sores - valACYclovir HCl 1 GM Oral Tablet (Valtrex); take 2 tablets by mouth every morning and 2 tablets at bedtime for COLD SORE Rhiannon infection - Clotrimazole 1 % External Cream (Lotrimin AF); Apply topically to affected area 2 times a day for28 days. To affected area for up to 4 weeks. (Patient not taking: Reported on 06/07/2023) Around the umbilicus. Vaccine for streptococcus pneumoniae and influenza - PNEUMOCOCCAL VACC, PCV20, IM ([id number]) Suggested for her bowels to take metamucil daily. To help with urgency. Her colonoscopy is up to date. Albertina Askew DO documented in this encounter Nursing Notes * Camille Dawkins LPN - 06/07/2023 11:10 AM EDT Chief Complaint Patient presents with Re-Check 6 month recheck. Pt is having IBS sx and today has left ear pain. Patient has been verbally educated on the need or importance of Immunizations: Shingrix and PCV 23 documented in this encounter Plan of Treatment Upcoming Encounters Date Type Specialty Care Team Description 06/07/2023 Office Visit Gastroenterology Kiah Loyd CRNP [address] [place] [id number] Arrived 06/17/2023 Imaging Radiology 11/05/2023 Telemedicine General Surgery Bola Haji MD [address] [place] [facility] [place] [address] 12/08/2023 Office Visit Family Medicine Albertina Askew DO [address] [place], [place] [address] [address] Scheduled Orders Name Type Priority Associated Diagnoses Orde r Schedule BASIC METABOLIC PANEL Lab Routine Iron deficiency anemia, unspecified iron deficiency anemia type Expected: 06/07/2023 (Approximate), Expires: 06/06/2024 IRON SCREEN, INCLUDING TIBC Lab Routine Iron deficiency anemia, unspecified iron deficiency anemia type Expected: 06/07/2023 (Approximate), Expires: 06/06/2024 Health Maintenance Due Date Last Done Comments Cologuard 1999 Fecal Occult Blood Test 1999 04/02/1998 Sigmoidoscopy 1999 Zoster Vaccines (2 of 3) 11/20/2014 09/25/2014 Depression Screening, Annual for Pts 12 and Over 10/30/2022 10/30/2021 Mammogram 05/28/2023 05/28/2022, 04/23, 05/02/2021, Additional history exists Influenza Vaccine (FLU shot) (#1) 2023 09/07/2022, 10/01/2021, 09/10/2020, Additional history exists Diabetes Screening 12/18/2025 12/18/2022, 0 04/17/2022, 12/25/2021, Additional history exists Lipid Panel 04/17/2027 04/17/2022, 11/23, 10/05/2018, Additional history exists DTaP,Tdap,and Td Vaccines (3 - Td or Tdap) 08/31/2028 08/31/2018, 05/24/2008 DXA Scan 01/20/2029 01/20/2022, 07/23, 12/24/2014, Additional history exists Colonoscopy 09/01/2031 09/01/2021, 08/22, 12/21/2016, Additional history exists Colorectal Cancer Screening 09/01/2031 Albumin/Creatinine Ratio Discontinued 04/17/2022 COVID-19 Vaccine Completed 09/04/2022, , 10/13/2021, Additional history exists Pneumococcal Vaccine: 65+ Years Completed 06/07/2023, 04/17/2022, 11/07/2019 GARDASIL-HPV IMMUNIZATION SERIES Aged Out No longer eligible based on patient's age to complete this topic Hepatitis B Aged Out No longer eligi ble based on patient's age to complete this topic MENINGOCOCCAL (MENACTRA/MENVEO) Aged Out No longer eligible based on patient's age to complete this topic documented as of this encounter Medical Devices Implanted Type Area Chha Device Identifier Shelf Expiration Date Model / Serial / Lot Lens Intraoc 20.5 - [id number] - [id number] Implanted:Qty: 1 on 05/16/2020 by Fer Guzman MD at OR [facility] Left: Eye [employer]OM[employer] 10/21/2024 [id number] / [id number] / [id number] Lens Intraoc 22.0 - [id number] - [id number] Implanted:Qty: 1 on 06/04/2020 by Fer Guzman MD at OR 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 No Care Teams Region Manager Relationship Specialty Start Date End Date Albertina Askew, DO [address] [place] [id number] PCP - General Family Medicine 05/03/20 documented as of this encounter
--- OUTSIDE RECORDS SUMMARY | 2023-11-24 05:28 | External Medical Summary ---
Author Name Unknown Address Unknown Organization K0G[facility] [address] [place] [address] Laboratory Report Ordering Provider Test Date Status SANDRA CPAUTO 06/17/2023 07:51:17 Final Observation Date Value Abnormality Reference (Units ) Status BUN 06/17/2023 07:51:17 16 6-20 (mg/dL) Final Creatinine 06/17/2023 07:51:17 0.9 0.5-1.0 (mg/dL) Final Glomerular filtration rate/1.73 sq M.predicted [Volume Rate/Area] in Serum, Plasma or Blood by Creatinine-based formula (CKD-EPI) 06/17/2023 07:51:17 68 >=60 (mL/min) Final eGFR is calculated based on the CKD-EPI 2020 equation SODIUM 06/17/2023 07:51:17 142 135-146 (m mol/L) Final Potassium 06/17/2023 07:51:17 3.9 3.5-5.1 (m mol/L) Final Cl 06/17/2023 07:51:17 105 98-107 (mm ol/L) Final CO2 06/17/2023 07:51:17 26 22-32 (mmo l/L) Final Anion gap 06/17/2023 07:51:17 11 7-15 (mmol /L) Final Glucose 06/17/2023 07:51:17 85 70-120 (mg /dL) Final Calcium 06/17/2023 07:51:17 9.6 8.4-10.2 ( mg/dL) Final [facility]forming Location [facility] [address] [place] [address]
--- OUTSIDE RECORDS SUMMARY | 2023-11-24 05:28 | External Medical Summary | Summary of Care ---
Author Name Unknown Organization [facility] Address [address] [place] [address] Phone [phone] Care Team Providers Care Roller Printer Name Role Phone Albertina Askew Primary Care Provider Reason for Referral * Evaluate & Treat - Unlimited Visits (Within 30 days (routine)) - Authorized Specialty Diagnoses / Procedures Referred By Contevie t Referred To Contact Urology Diagnoses Microscopic hematuria Luis Fernando Casiano MD [address] [place] [address] Referral ID Status Reason Start Date Expiration Date Visits Requested Visits Authorized [id number] Authorized Specialty Services Required 10/26/2023 999 999 Question Answer Referral Priority Within 30 days (routine) Where should this appointment be scheduled? [facility] What is the patient being referred for? Hematuria What is Hematuria condition? Microscopic Reason for Visit * Reason Onset Date Comments Appointment 10/25/2023 Encounter Details Date Type Department Care Team (Late st Contact Info) Description 10/25/2023 Telephone General Internal Medicine [facility] [address] [place] [address] Luis Fernando Casiano MD [address] [place] [address] Appointment (/) Allergies Active Allergy Reactions Criticality Noted Date Comments Nitrofurantoin Macrocrystal Hives 03/11/20 19 Scopolamine 12/18/2022 Long withdrawal symptom Sulfa Antibiotics 06/04/2008 RASH documented as of this encounter (statuses as of 10/26/2023) Medications Medication Sig Dispensed Refills Start Date End Date Status Multiple Vitamins-Minerals (MULTIVITAMIN ADULT EXTRA C) CHEW Take by mouth daily. 0 Active Calcium Carb-Cholecalcifero l 600-800 MG-UNIT Oral Tablet Take 1 Tablet by mouth in the morning. 0 Active [place]-3 Fatty Acids (OMEGA-3 CF) 1000 MG CAPS [...] as of this encounter (statuses as of 10/26/2023) Active Problems Problem Noted Date Diagnosed Date GERD (gastroesophageal reflux disease) 2 Paraesophageal hernia 12/24/2021 Iron deficiency anemia 08/18/2021 Hand pain 08/10/2017 Trigger middle finger of left hand 08/10/2017 documented as of this encounter (statuses as of 10/26/2023) Resolved Problems Problem Noted Date Diagnosed Date [...] as of this encounter (statuses as of 10/26/2023) Immunizations Name Administration Dates Next Due COVID-19 mRNA, LNP-s, No Pre serve, 2-Dose Series (Testt) 10/13/2021,02/01/2021,01/11/2021 COVID-19, LNP-s, No Preserve , Akhil-sucrose, Ages 12+ (Pfizer) 03/19/2022 Covid-19, Mrna, Lnp-s, Pf, B ivalent, 30 Mcg, IM, 12 yrs and above (Testt) 09/04/2022 Pneumococcal Conjugate Vacci ne, 20-valent ([id number]) 06/07/2023 Pneumococcal Polysaccharide PPV23 (Pneumovax) 04/17/2022,11/07/2019 SEASONAL [...] encounter Miscellaneous Notes * Telephone Encounter - Mary Garrison OSA - 10/26/2023 11:58 AM EST Scheduled and added to wait list * Telephone Encounter - Kailey Salas LPN - 10/25/2023 4:37 PM EST Called and spoke with pt. Relayed information from Dr Casiano. Pt voiced understanding. Pt agreed to a urology referral. Referral pend below. Pt will have urine checked again. Pt states that she is feeling better over all. * Telephone Encounter - Kailey Salas LPN - 10/25/2023 4:35 PM EST ----- Message from Luis Fernando Casiano MD sent at 10/23/2023 8:04 AM EST ----- CT A/P shows: 1. Liver cysts, likely benign but can f/u pcp when sees in November 2. Has calcified fibroids, again, likely benign, but can f/u pcp on this 3. Please repeat urine, as if still with blood, would suggest urology evaul. I hope she is feeling better if not can refer to urology now. documented in this encounter Plan of Treatment Upcoming Encounters Date Type Department Care Team (Late st Contact Info) Description 11/05/2023 9:00 AM EST [facility] [address] [place] [address] Bola Haji MD [address] [place] [address] 12/08/2023 9:30 AM EST Office Visit [facility] [address] [place] [id number] Albertina Askew DO [address] [place] [address] 06/27/2024 8:00 AM EDT Office Visit Urology, [facility] [address] [facility] [place] [address] Gino Dawkins MD [address] [address] [place] [address] Scheduled Referrals Name Type Priority Associated Diagnoses Orde r Schedule UROLOGY REFERRAL OP Referral Within 30 da ys (routine) Microscopic hematuria Ordered: 10/26/2023 Health Maintenance Due Date Last Done Comments [...] this encounter Medical Devices Implanted Type Area Wireline Operator Device Identifier Shelf Expiration Date Model / Serial / Lot Lens Intraoc 20.5 - [id number] - [id number] Implanted:Qty: 1 on 05/16/2020 by Fer Guzman MD at OR [facility] Left: Eye [employer]CH [employer]OMB 10/21/2024 [id number] / [id number] / [id number] Lens Intraoc 22.0 - [id number] - [id number] Implanted:Qty: 1 on 06/04/2020 by Fer Guzman MD at OR [facility] Right: Eye BAUSCH & LOMB 10/21/2024 [id number] / [id number] / Allomax Mesh 2 X 4 [id number] - [id number] - [id number] Implanted:Qty: 1 on 12/24/2021 by Bola Haji MD [place] [facility] [place]: Abdomen CR BARD : DAVOL 01/19/2026 [id number] / [id number] / [id number] documented as of this encounter Visit Diagnoses Diagnosis Microscopic hematuria- Primary documented in this encounter Advance Directives [...] the patient have Health Care Power of Test Fixture Designer? No Care Teams Roller Printer Relationship Specialty Start Date End Date Albertina Askew DO [address] [facility] [place] [id number] PCP - General Family Medicine 05/03/20 documented as of this encounter
--- OUTSIDE RECORDS SUMMARY | 2023-11-24 05:28 | External Medical Summary | Summary of Care ---
Author Name Unknown Organization [facility] Address [address] [place] [address] Phone [phone] Care Team Providers Care Roll On Man Name Role Phone Albertina Askew DO Primary Care Provider Reason for Visit * Reason Onset Date Comments Re-Check 6 month recheck. Pt is having IBS sx and today has left ear pain. Medication Administration 06/07/2023 Flu an d/or Pneumo Inj Encounter Details Date Type Department Care Team Description 06/07/2023 Office Visit [facility] [address] [place] [address] Albertina Askew DO [address] [place] [address] Iron deficiency anemia, unspecified iron [...] Start Date End Date Status nystatin (NYSTOP) 136314 UNIT/GM powder Apply topically to affected area 2 times a day. Apply to affected area 15 g 3 06/14/2019 Active Additional Information Patient not taking.Reported on 06/07/2023 Multiple Vitamins-Minerals (MULTIVITAMIN ADULT EXTRA C) CHEW Take by mouth daily. 0 Active Calcium Carb-Cholecalcife rol 600-800 MG-UNIT Oral Tablet Take 1 Tablet by mouth in the morning. 0 Active [place]-3 Fatty Acids (OMEGA-3 CF) 1000 MG CAPS [...] mRNA, LNP-s, No Pre serve, 2-Dose Series ([place]) 10/13/2021,02/01/2021,01/11/2021 COVID-19, LNP-s, No Preserve , Akhil-sucrose, Ages 12+ (Pfizer) 03/19/2022 Covid-19, Mrna, Lnp-s, Pf, B ivalent, 30 Mcg, IM, 12 yrs and above (Pfizer) 09/04/2022 Pneumococcal Conjugate Vacci ne, 20-valent ([id number]) 06/07/2023 Pneumococcal Polysaccharide PPV23 (Pneumovax) 04/17/2022,11/07/2019 Seasonal [...] Oral Capsule Take by mouth. nystatin (NYSTOP) 450719 UNIT/GM powder Apply topically to affected area 2 times a day. Apply to affected area (Patient taking differently: Apply topically to affected area 2 times a day. Apply to affected area) 15 g 3 Multiple Vitamins-Minerals (MULTIVITAMIN ADULT EXTRA C) CHEW Take by mouth daily. Cholecalciferol (VITAMIN D3) 50 MCG (2000 UT) Capsule Take 1 Capsule by mouth in the morning. [place]-3 Fatty Acids (OMEGA-3 CF) 1000 MG CAPS [...] and influenza - PNEUMOCOCCAL VACC, PCV20, IM ([id number]) Suggested for her bowels to take metamucil [...] Encounters Date Type Specialty Care Team Description 06/17/2023 Imaging Radiology 11/05/2023 Telemedicine General Surgery Bola Haji MD [address] [place] [address] 12/08/2023 Office Visit Family Medicine Albertina Askew DO [address] [place] [address] [phone] Scheduled Orders Name Type Priority Associated Diagnoses [...] this encounter Medical Devices Implanted Type Area Integrated Circuit Design Engineer Device Identifier Shelf Expiration Date Model / Serial / Lot Lens Intraoc 20.5 - [id number] - [id number] Implanted:Qty: 1 on 05/16/2020 by Fer Guzman MD at OR [facility] Left: Eye BAUSCH & LOMB 10/21/2024 [id number] / [id number] Lens Intraoc 22.0 - [id number] - [id number] Implanted:Qty: 1 on 06/04/2020 by Fer Guzman MD at OR [facility] Right: Eye BAUSCH & LOMB 10/21/2024 [id number] / [id number] / Allomax Mesh 2 X 4 [id number] - [id number] - [id number] Implanted:Qty: 1 on 12/24/2021 by Bola Haji MD at [place] [facility] N/A: Abdomen CR BARD : DAVOL 01/19/2026 [id number] / [id number] / [id number] documented as of this encounter Visit Diagnoses [...] the patient have Health Care Power of Pricing Coordinator? No Care Teams Roll On Man Relationship Specialty Start Date End Date Albertina Askew, [address] [place] [address] PCP - General Family Medicine 05/03/20 documented as of this encounter
--- OUTSIDE RECORDS SUMMARY | 2023-11-24 05:28 | External Medical Summary | Summary of Care ---
Author Name Unknown Organization [facility] Address [address] [facility] [place] [address] Phone [phone] Care Team Providers Care Recovery Room Nurse Name Role Phone Albertina Askew Primary Care Provider [phone] Reason for Visit * Reason Comments NEW PATIENT IBS issues, urgency and frequency, abd pain/epigastric pain, GERD, Encounter Details Date Type Department Care Team Description 06/07/2023 Office Visit Gastroenterology, [facility] [address] [facility] [place] [address] Kiah Loyd CRNP [address] [facility] [place] [address] Change in bowel habits*; Loose bowel movements; Diarrhea, unspecified type Allergies Active Allergy Reactions Severity Noted Date Comments Nitrofurantoin Macrocrystal Hives 01/31/20 19 Scopolamine 12/18/2022 Long withdrawal symptom Sulfa Antibiotics 06/04/2008 RASH documented as of this encounter (statuses as of 06/09/2023) Medications Medication Sig Dispensed Refills Start Date End Date Status nystatin (NYSTOP) 596068 UNIT/GM powder Apply topically to affected area 2 times a day. Apply to affected area 15 g 3 06/14/2019 Active Additional Information Patient not taking.Reported on 06/07/2023 Multiple Vitamins-Minerals (MULTIVITAMIN ADULT EXTRA C) CHEW Take by mouth daily. 0 Active Calcium Carb-Cholecalcife rol 600-800 MG-UNIT Oral Tablet Take 1 Tablet by mouth in the morning. 0 Active [place]-3 Fatty Acids (OMEGA-3 CF) 1000 MG CAPS [...] Additional Information Patient not taking.Reported on 06/07/2023 Colestipol HCl 1 GM Oral Tablet (Colestid) Take 1 to 2 tablets by mouth with lunch every day 60 Tablet 5 06/07/2023 Active Cholecalciferol (VITAMIN D3) 50 MCG (1999 UT) Capsule Take 1 Capsule by mouth in the morning. 0 3 Discontinue d(Medicatio n List Clean Up) Diclofenac Sodium 75 MG Oral Tablet Delayed Release (Voltaren) TAKE ONE TABLET BY MOUTH IN THE MORNING AND ONE TABLET BEFORE BEDTIME WITH FOOD 60 Tablet 3 10/19/2022 3 Discontinue d(Medicatio n List Clean Up) documented as of this encounter (statuses as of 06/09/2023) Active Problems Problem Noted Date GERD (gastroesophageal reflux disease) 0 12/25/2021 Paraesophageal hernia 12/24/2021 Iron deficiency anemia 08/18/2021 Hand pain 08/10/2017 Trigger middle finger of left hand 08/10 documented as of this encounter (statuses as of 06/09/2023) Resolved Problems Problem Noted Date Resolved Date [...] as of this encounter (statuses as of 06/09/2023) Immunizations Name Administration Dates Next Due COVID-19 mRNA, LNP-s, No Pre serve, 2-Dose Series (9DIAMOND) 10/13/2021,02/01/2021,01/11/2021 COVID-19, LNP-s, No Preserve , Akhil-sucrose, Ages 12+ (9DIAMOND) 03/19/2022 Covid-19, Mrna, Lnp-s, Pf, B ivalent, 30 Mcg, IM, 12 yrs and above (9DIAMOND) 09/04/2022 Pneumococcal Conjugate Vacci ne, 20-valent ([id number]) 06/07/2023 Pneumococcal Polysaccharide PPV23 (Pneumovax) 04/17/2022,11/07/2019 Seasonal [...] Sign Reading Time Taken Comments Blood Pressure 123/76 06/07/2023 3:14 PM EDT Pulse 91 06/07/2023 3:14 PM EDT Temperature 36.6 C (97.8 F) 06/07/2023 3:14 PM ED T Respiratory Rate - - Oxygen Saturation 95% 06/07/2023 3:14 PM EDT Inhaled Oxygen Concentration - - Weight 68 kg (150 lb) 06/07/2023 3:14 PM EDT Height 161.9 cm (5' 3.75") 06/07/2023 3:14 PM ED T Body Mass Index 25.95 06/07/2023 3:14 PM EDT documented in this [...] this encounter Patient Instructions * Patient Instructions* THEODORE Narayan - 06/07/2023 4:14 PM EDT One dose of fiber/day such as Benefiber, Citrucel or Fibercon (pill). Colestid to bind the stool together. You can take 1 or 2 tabs w lunch daily. Do not take with otherpills/vitamins. Drink 60 - 80 oz of water a day. Stool studies to r/o infection Colonoscopy - but can cancel if all better. documented in this encounter Progress Notes * THEODORE Narayan - 06/07/2023 3:50 PM EDT CC: urgent loose BMs HPI: Recall Ms. Purnima Reid is a 67 yr old female pt of Dr. Azar ellison a hx of [place] who is here today for the above issue. This began after a hiatal hernia repair (lap/endoscopic patch). She has been having looseliquid BMs up to 4x/day about ocne a week. BMs are very urgent and she hashad incontinence about 3 times. This wakes her from sleep occasional. She has lower abd cramping w the defecation. No blood/black BMs. No significant weight loss. Imodium helps - will return to passing a BM about 24 hrs after taking one imodium pill. Art sweeteners: none Soda: none Caffeine: one every morning - typically runs to the BR after Dairy: occasional ice but takes lactaid prior. Colonoscopy Aug 2021; - Diverticulosis in the sigmoid colon. The examination was otherwise normal. No specimens collected. EGD 2021: - Large hiatal hernia with Armando erosions. Could explain iron deficiency anemia. - Normal small bowel enteroscopy into the jejunum with no AVMs. EGD 2021: - Normal mucosa was found in the entire esophagus. - A Tarun fundoplication was found. The wrap appears intact. - Normal mucosa was found in the entire stomach. - No specimens collected. Labs 2020: tTG (-) EXAM: BP 123/76 | Pulse 91 | Temp 36.6 C (97.8 F) | Ht 1.619 m (5' 3.75") | Wt 68 kg (150 lb) | LMP 12/23/2005 | SpO2 95% | BMI 25.95 kg/m | BSA 1.75 m GENERAL: 67 year old female well developed and well [...] no lateralizing findings, Sensory/Motor grossly normal IMPRESSION/RECOMMENDATIONS: 67 year old female with Change in bowel habits (Primary)/losse BMs/diarrhea - GASTROINTESTINAL PATHOGEN PANEL, STOOL; Future; Expected date: 06/08/2023 - CLOSTRIDIUM DIFFICILE, PCR; Future; Expected date: 06/08/2023 - REGIONAL PARASITE ANTIGEN SCREEN; Future; Expected date: 06/08/2023 - Colestipol HCl 1 GM Oral Tablet (Colestid); Take 1 to 2 tablets by mouth with lunch every day Follow Up: Return in about 3 months (around 09/07/2023) for after endoscopy. | For: after endoscopy I spent a total of 40-54 minutes (exact time 41 mins) on the date of service in preparation, delivery, and documentation of the care provided to Purnima Reid excluding any time spent in the performance of separately billed services. Thank you for the opportunity to be involved in the care of this patient. THEODORE Narayan documented in this encounter Nursing Notes * Hermila Bates LPN - 06/07/2023 3:18 PM EDT Patient identified by name and date of . Chief Complaint Patient presents with NEW PATIENT IBS issues, urgency and frequency, abd pain/epigastric pain, GERD, documented in this encounter Plan of Treatment Upcoming Encounters Date Type Specialty Care Team Description 06/17/2023 Imaging Radiology 09/08/2023 Office Visit Gastroenterology Kiah Loyd CRNP [address] [place] [address] 11/01/2023 Hospital Encounter Endoscopy Keenan Loving MD [address] [place] [address] 11/01/2023 Surgery Endoscopy Keenan Loving MD [address] [place] [address] COLONOSCOPY FLEXIBLE PROXIMAL DIAGNOSTIC 11/05/2023 Telemedicine General Surgery Bola Haji MD [address] [place] [address] 12/08/2023 Office Visit Family Medicine Albertina Askew, [address] [place], [place] [phone] Pending Results Name Type Priority Associated Diagnoses Date /Time GASTROINTESTINAL PATHOGEN PANEL, STOOL Lab Routine Loose bowel movements Diarrhea, unspecified type 06/08/2023 2:42 PM EDT REGIONAL PARASITE ANTIGEN SCREEN Lab Routine Loose bowel movements Diarrhea, unspecified type 06/08/2023 2:42 PM EDT Scheduled Orders Name Type Priority Associated Diagnoses Orde r Schedule COLONOSCOPY, DIAGNOSTIC (RECTUM) Procedures Routine Change in bowel habits Loose bowel movements Ordered: 06/07/2023 GASTROINTESTINAL PATHOGEN PANEL, STOOL Lab Routine Loose bowel movements Diarrhea, unspecified type Expected: 06/08/2023, Expires: 06/07/2024 CLOSTRIDIUM DIFFICILE, PCR Lab Routine Loose bowel movements Diarrhea, unspecified type Expected: 06/08/2023 (Approximate), Expires: 07/08/2024 REGIONAL PARASITE ANTIGEN SCREEN Lab Routine Loose bowel movements Diarrhea, unspecified type Expected: 06/08/2023, Expires: 06/07/2024 Scheduled Procedures Name Priority Associated Diagnoses Date/Ti me COLONOSCOPY FLEXIBLE PROXIMAL DIAGNOSTIC Change in bowel habits Loose bowel movements 11/01/2023 9:30 AM EST Health Maintenance Due Date Last [...] this encounter Medical Devices Implanted Type Area Survey Research Center Director Device Identifier Shelf Expiration Date Model / Serial / Lot Lens Intraoc 20.5 - [id number] - [id number] Implanted:Qty: 1 on 05/16/2020 by Fer Guzman MD at OR [facility] Left: Eye BAUSCH & LOMB 10/21/2024 [id number] / [id number] / [id number] Lens Intraoc 22.0 - [id number] - [id number] Implanted:Qty: 1 on 06/04/2020 by Fer Guzman MD at OR [facility] Right: Eye BAUSCH & LOMB 10/21/2024 [id number] / [id number] / Allomax Mesh 2 X 4 [id number] - [id number] - [id number] Implanted:Qty: 1 on 12/24/2021 by Bola Haji MD at OR [facility] [place] N/A: Abdomen CR BARD : DAVOL 01/19/2026 [id number] / [id number] / [id number] documented as of this encounter Visit Diagnoses Diagnosis Change in bowel habits- Primary Other symptoms involving digestive system Loose bowel movements Diarrhea Diarrhea, unspecified type Change in bowel habits Other symptoms involving digestive system Loose bowel movements Diarrhea documented in this encounter Advance Directives Latest [...] the patient have Health Care Power of Coal Wheeler? No Care Teams Recovery Room Nurse Relationship Specialty Start Date End Date Albertina Askew, [address] [place] [address] PCP - General Family Medicine 05/03/20 documented as of this encounter
--- OUTSIDE RECORDS SUMMARY | 2023-11-24 05:28 | External Medical Summary ---
Author Name Unknown Address Unknown Organization K01:[facility] [place] - [address] [place] [address] Laboratory Report Ordering Provider Test Date Status MARIAMMARTIN 06/08/2023 14:42:13 Final Observation Date Value Abnormality Reference (Units ) Status Cryptosporidium sp Ag [Presence] in Stool by Immunoassay 06/08/2023 14:42:13 Negative Negative Final Negative for Cryptosporidium Antigen. Giardia lamblia Ag [Presence ] in Stool by Immunoassay 06/08/2023 14:42:13 Negative Negative Final Negative for Giardia Specifi c Antigen. Performing Location [facility] [place] [facility] [address] [facility] [address]
--- OUTSIDE RECORDS SUMMARY | 2023-11-24 05:28 | External Medical Summary | Summary of Care ---
Author Name Unknown Organization [facility] Address [address] [place] [address] Phone [phone] Care Team Providers Care Back Tender Fourdrinier Name Role Phone Albertina Askew Primary Care Provider Reason for Referral * Precert (Within 10 days (routine)) - Authorized Specialty Diagnoses / Procedures Referred By Contac t Referred To Contact Radiology Diagnoses Other microscopic hematuria Dysuria Procedures CT ABD/PELVIS W WO IV CONTRAST - WO ORAL CONT Luis Fernando Casiano MD [address] [place] [address] Referral ID Status Reason Start Date Expiration Date V isits Requested Visits Authorized [id number] Authorized 10/15/2023 999 999 Reason for Visit * Reason Onset Date Comments Test Results 10/15/2023 Encounter Details Date Type Department Care Team (Late st Contact Info) Description 10/15/2023 Telephone General Internal Medicine [facility] [address] [place] [address] Luis Fernando Casiano MD [address] [place] [address] Test Results Allergies Active Allergy Reactions Criticality Noted Date Comments Nitrofurantoin Macrocrystal Hives 01/31/20 19 Scopolamine 12/18/2022 Long withdrawal symptom Sulfa Antibiotics 06/04/2008 RASH documented as of this encounter (statuses as of 10/20/2023) Medications Medication Sig Dispensed Refills Start Date End Date Status Multiple Vitamins-Minerals (MULTIVITAMIN ADULT EXTRA C) CHEW Take by mouth daily. 0 Active Calcium Carb-Cholecalcifer ol 600-800 MG-UNIT Oral Tablet Take 1 Tablet by mouth in the morning. 0 Active [place]-3 Fatty Acids (OMEGA-3 CF) 1000 MG CAPS [...] Omeprazole 20 MG Oral Capsule Delayed Release (PriLOSEC)Indicati ons:Gastroesophage al reflux disease without esophagitis take 1 capsule by mouth every morning 1 hour before breakfast 90 Capsule 2 03/04/2023 Active Digestive Advantage Oral Capsule Take by mouth. Combination of probiotics with lactose support. 0 Active valACYclovir HCl 1 GM Oral Tablet (Valtrex)Indicatio ns:Recurrent cold sores take 2 tablets by mouth every morning and 2 tablets at bedtime for COLD SORE 12 Tablet 1 06/07/2023 Active Vitamin D (Cholecalciferol) 25 MCG (1000 UT) Oral Capsule Take by mouth every evening. 0 Active Fiber Formula Oral Capsule Take 2 Capsules by mouth. 0 Active Cephalexin 250 MG Oral CapsuleIndications :Acute cystitis with hematuria Take 1 Capsule by mouth in the morning and 1 Capsule at noon and 1 Capsule in the evening and 1 Capsule before bedtime. Do all this for 10 days. 40 Capsule 0 10/13/2023 10/23/2023 Active documented as of this encounter (statuses as of 10/20/2023) Active Problems Problem Noted Date Diagnosed Date GERD (gastroesophageal reflux disease) 2 Paraesophageal hernia 12/24/2021 Iron deficiency anemia 08/18/2021 Hand pain 08/10/2017 Trigger middle finger of left hand 08/10/2017 documented as of this encounter (statuses as of 10/20/2023) Resolved Problems Problem Noted Date Diagnosed Date [...] as of this encounter (statuses as of 10/20/2023) Immunizations Name Administration Dates Next Due COVID-19 mRNA, LNP-s, No Pre serve, 2-Dose Series (Organ[employer]) 10/13/2021,02/01/2021,01/11/2021 COVID-19, LNP-s, No Preserve , Akhil-sucrose, Ages 12+ (Pfizer) 03/19/2022 Covid-19, Mrna, Lnp-s, Pf, B ivalent, 30 Mcg, IM, 12 yrs and above (Pfizer) 09/04/2022 Pneumococcal Conjugate Vacci ne, 20-valent ([id number]) 06/07/2023 Pneumococcal Polysaccharide PPV23 (Pneumovax) 04/17/2022,11/07/2019 SEASONAL [...] Telephone Encounter - Sherita Garrison OSA - 10/20/2023 11:14 AM EST Pt scheduled appt * Telephone Encounter - Lyndsey Dempsey LPN - 10/15/2023 3:52 PM EST Patient notified of message below. Verbalized understanding. Please assist with scheduling CT. * Telephone Encounter - Luis Fernando Casiano MD - 10/15/2023 3:05 PM EST Ordered, pls do bmp (blood lab non fasting) 5-[address] as IV contrast will be used. * Telephone Encounter - Niurka Beckwith LPN - 10/15/2023 2:55 PM EST Called pt informed of message. She verbalized understanding. She still has burning and pressure, like she needs to void. Pt is agreeable to do a CT and will do repeat UA * Telephone Encounter - Niurka Beckwith LPN - 10/15/2023 2:55 PM EST ----- Message from Luis Fernando Casiano MD sent at 10/15/2023 9:05 AM EST ----- Urine culture is negative, how are symptoms? If still going on, check CT a/p to exclude stone. Please do f/u u/a to ensure blood clearing regardless as directed by maximo documented in this encounter Plan of Treatment Upcoming Encounters Date Type Department Care Team (Late st Contact Info) Description 10/22/2023 3:30 PM EST Imaging Radiology [address], [place] [address] [facility] [place] [address] 11/05/2023 9:00 AM EST Telemedicine General Surgery, [place] [address] [place] [address] Bola Haji MD [address] [place] [address] 12/08/2023 9:30 AM EST Office Visit Located Within [facility] [address] [place] [id number] Albertina Askew, [address], [place] [phone] Scheduled Orders Name Type Priority Associated Diagnoses Orde r Schedule CT ABD/PELVIS W WO IV CONTRAST - WO ORAL CONT Medical Imaging Routine Other microscopic hematuria Dysuria Expected: 10/15/2023, Expires: 11/14/2024 BASIC METABOLIC PANEL Lab Routine Other microscopic hematuria Expected: 10/15/2023 (Approximate), Expires: 10/14/2024 Health Maintenance Due Date Last Done Comments Cologuard 1999 Fecal Occult Blood Test 1999 04/02/1998 Sigmoidoscopy 1999 Zoster Vaccines (2 of 3) 11/20/2014 09/25/2014 Depression Screening 10/30/2022 10/30/2021 COVID-19 Vaccine ( season) 2023 09/04/2022, 03/19/2022, 10/13/2021, Additional history exists Mammogram 06/17/2024 06/17/2023, 0705/2023, 05/28/2022, Additional history exists Diabetes Screening 06/17/2026 [...] this encounter Medical Devices Implanted Type Area Safe Deposit Box Rental Clerk Device Identifier Shelf Expiration Date Model / Serial / Lot Lens Intraoc 20.5 - [id number] - [id number] Implanted:Qty: 1 on 05/16/2020 by Fer Guzman MD at OR [facility] Left: Eye BAUSCH & LOMB 10/21/2024 [id number] / [id number] / [id number] Lens Intraoc 22.0 - [id number] - [id number] Implanted:Qty: 1 on 06/04/2020 by Fer Guzman MD at OR [facility] Right: Eye BAUSCH & LOMB 10/21/2024 [id number] / [id number] / Allomax Mesh 2 X 4 [id number] - [id number] - [id number] Implanted:Qty: 1 on 12/24/2021 by Bola Haji MD at [place] [facility] N/A: Abdomen CR BARD : DAVOL 01/19/2026 [id number] / [id number] / [id number] documented as of this encounter Visit Diagnoses Diagnosis Other microscopic hematuria- Primary Dysuria documented in this encounter Advance Directives Latest [...] the patient have Health Care Power of Mold Setter? No Care Teams Back Tender Fourdrinier Relationship Specialty Start Date End Date Albertina Askew DO [address] [place] [address] PCP - General Family Medicine 05/03/20 documented as of this encounter
--- OUTSIDE RECORDS SUMMARY | 2023-11-24 05:28 | External Medical Summary ---
Author Name Unknown Address Unknown Organization K01:LAB[facility]ATORY [place] [address] [facility] [address] Laboratory Report Ordering Provider Test Date Status MARTIN BECRERA 06/08/2023 14:42:13 Final Observation Date Value Abnormality Reference (Units ) Status Campylobacter sp DNA.diarrheagenic [Presence] in Stool by ALLI with probe detection 06/08/2023 14:42:13 Negative Negative Final Salmonella sp rpoD gene [Presence] in Stool by ALLI with probe detection 06/08/2023 14:42:13 Negative Negative Final Shigella species+EIEC invasion plasmid antigen H ipaH gene [Presence] in Stool by ALLI with probe detection 06/08/2023 14:42:13 Negative Negative Final Vibrio sp DNA [Identifier] in Specimen by ALLI with probe detection 06/08/2023 14:42:13 Negative Negative Final Yersinia enterocolitica recN gene [Presence] in Stool by ALLI with probe detection 06/08/2023 14:42:13 Negative Negative Final Escherichia coli Stx1 toxin stx1 gene [Presence] in Stool by ALLI with probe detection 06/08/2023 14:42:13 Negative Negative Final Escherichia coli Stx2 toxin stx2 gene [Presence] in Stool by ALLI with probe detection 06/08/2023 14:42:13 Negative Negative Final Norovirus genogroups I and II RNA panel - Stool by ALLI with probe detection 06/08/2023 14:42:13 Negative Negative Final Rotavirus A RNA [Presence] in Stool by ALLI with probe detection 06/08/2023 14:42:13 Negative Negative Final Performing Location LABORATORY [address] [facility] [address]
--- OUTSIDE RECORDS SUMMARY | 2023-11-24 05:28 | External Medical Summary | Summary of Care ---
Author Name Unknown Organization [facility] Address [address] [place] [address] Phone [phone] Care Team Providers Care Customer Service Receptionist Name Role Phone Albertina Askew Primary Care Provider Reason for Visit * Reason Comments Outpatient Testing Encounter Details Date Type Department Care Team Description 06/08/2023 Laboratory Laboratory, [place] [address] [place] [address] [address], Specimen Drop Off [facility] [address] [place] [address] Loose bowel movements; Diarrhea, unspecified type Allergies Active Allergy Reactions Severity Noted Date Comments Nitrofurantoin Macrocrystal Hives 01/31/20 19 Scopolamine 12/18/2022 Long withdrawal symptom Sulfa Antibiotics 06/04/2008 RASH documented as of this encounter (statuses as of 06/08/2023) Medications Medication Sig Dispensed Refills Start Date End Date Status nystatin (NYSTOP) 204725 UNIT/GM powder Apply topically to affected area 2 times a day. Apply to affected area 15 g 3 06/14/2019 Active Additional Information Patient not taking.Reported on 06/07/2023 Multiple Vitamins-Minerals (MULTIVITAMIN ADULT EXTRA C) CHEW Take by mouth daily. 0 Active Calcium Carb-Cholecalcifer ol 600-800 MG-UNIT Oral Tablet Take 1 Tablet by mouth in the morning. 0 Active [place]-3 Fatty Acids (OMEGA-3 CF) 1000 MG CAPS [...] Active Clotrimazole 1 % External Cream (Lotrimin AF)Indications:Can dida infection Apply topically to affected area 2 times a day for 28 days. To affected area for up to 4 weeks. 15 g 0 06/07/2023 07/05/2023 Active Additional Information Patient not taking.Reported on 06/07/2023 Colestipol HCl 1 GM Oral Tablet (Colestid) Take 1 to 2 tablets by mouth with lunch every day 60 Tablet 5 06/07/2023 Active documented as of this encounter (statuses as of 06/08/2023) Active Problems Problem Noted Date GERD (gastroesophageal reflux disease) 0 12/25/2021 Paraesophageal hernia 12/24/2021 Iron deficiency anemia 08/18/2021 Hand pain 08/10/2017 Trigger middle finger of left hand 08/10 documented as of this encounter (statuses as of 06/08/2023) Resolved Problems Problem Noted Date Resolved Date [...] as of this encounter (statuses as of 06/08/2023) Immunizations Name Administration Dates Next Due COVID-19 mRNA, LNP-s, No Pre serve, 2-Dose Series (kontoblick) 10/13/2021,02/01/2021,01/11/2021 COVID-19, LNP-s, No Preserve , Akhil-sucrose, Ages 12+ (Pfizer) 03/19/2022 Covid-19, Mrna, Lnp-s, Pf, B ivalent, 30 Mcg, IM, 12 yrs and above (kontoblick) 09/04/2022 Pneumococcal Conjugate Vacci ne, 20-valent ([id number]) 06/07/2023 Pneumococcal Polysaccharide PPV23 (Pneumovax) 04/17/2022,11/07/2019 Seasonal [...] Loyd CRNP [address] [place] [address] 11/01/2023 Hospital Encounter Endoscopy Keenan Loving MD [address] [place] [address] 11/01/2023 Surgery Endoscopy Keenan Loving MD [address] [place] [address] COLONOSCOPY FLEXIBLE PROXIMAL DIAGNOSTIC 11/05/2023 Telemedicine General Surgery Bola Haji MD [address] [place] [address] 12/08/2023 Office Visit Family Medicine Albertina Askew, [address] [place] [address] Pending Results Name Type Priority Associated Diagnoses Date /Time GASTROINTESTINAL PATHOGEN PANEL, STOOL Lab Routine Loose bowel movements Diarrhea, unspecified type 06/08/2023 2:42 PM EDT REGIONAL PARASITE ANTIGEN SCREEN Lab Routine Loose bowel movements Diarrhea, unspecified type 06/08/2023 2:42 PM EDT GASTROINTESTINAL PATHOGEN PANEL PCR Lab Routine Loose bowel movements Diarrhea, unspecified type 06/08/2023 2:42 PM EDT GASTROINTESTINAL PATHOGEN PANEL CULTURE Lab Routine Loose bowel movements Diarrhea, unspecified type 06/08/2023 2:42 PM EDT Scheduled Procedures Name Priority Associated Diagnoses Date/Ti [...] this encounter Medical Devices Implanted Type Area Assembly Inspector Helper Device Identifier Shelf Expiration Date Model / Serial / Lot Lens Intraoc 20.5 - [id number] - [id number] Implanted:Qty: 1 on 05/16/2020 by Fer Guzman MD at OR [facility] Left: Eye BAUSCH [employer] LOMB 10/21/2024 [id number] / [id number] / [id number] Lens Intraoc 22.0 - [id number] - [id number] Implanted:Qty: 1 on 06/04/2020 by Fer Guzman MD at OR [facility] Right: Eye BAUSCH & LOMB 10/21/2024 [id number] / [id number] / Allomax Mesh 2 X 4 [id number] - [id number] - [id number] Implanted:Qty: 1 on 12/24/2021 by Bola Haji MD at OR [facility] N/A: Abdomen CR BARD : DAVOL 01/19/2026 [id number] / [id number] / [id number] documented as of this encounter Visit Diagnoses Diagnosis Loose bowel movements Diarrhea Diarrhea, unspecified type Change in bowel habits Other symptoms involving digestive system Loose bowel movements Diarrhea documented in this encounter Additional Health Concerns Infection Onset Date Last Indicated Resolved Time Gastrointestinal Rule-Out 06/08/2023 06/08/2023 documented as of this encounter Advance Directives [...] the patient have Health Care Power of Stakes Player? No Care Teams Customer Service Receptionist Relationship Specialty Start Date End Date Albertina Askew, [address] [place], [place] [id number] PCP - General Family Medicine 05/03/20 documented as of this encounter
--- OUTSIDE RECORDS SUMMARY | 2023-11-24 05:28 | External Medical Summary | Summary of Care ---
Author Name Unknown Organization [facility] Address [address] [place] [facility] [place] [address] Phone [phone] Care Team Providers Care Crime Lab Technician Name Role Phone Albertina Askew Primary Care Provider [phone] Reason for Visit * Reason Comments Outpatient Testing Encounter Details Date Type Department Care Team Description 06/17/2023 Laboratory [facility] [address] [facility] [place] [id number] [facility] [address] [place] [address] Iron deficiency anemia, unspecified iron deficiency anemia type Allergies Active Allergy Reactions Severity Noted Date Comments Nitrofurantoin Macrocrystal Hives 01/31/20 19 Scopolamine 12/18/2022 Long withdrawal symptom Sulfa Antibiotics 06/04/2008 RASH documented as of this encounter (statuses as of 06/17/2023) Medications Medication Sig Dispensed Refills Start Date End Date Status nystatin (NYSTOP) 379663 UNIT/GM powder Apply topically to affected area 2 times a day. Apply to affected area 15 g 3 06/14/2019 Active Additional Information Patient not taking.Reported on 06/07/2023 Multiple Vitamins-Minerals (MULTIVITAMIN ADULT EXTRA C) CHEW Take by mouth daily. 0 Active Calcium Carb-Cholecalcifer ol 600-800 MG-UNIT Oral Tablet Take 1 Tablet by mouth in the morning. 0 Active [place]-3 Fatty Acids (OMEGA-3 CF) 1000 MG CAPS [...] as of this encounter (statuses as of 06/17/2023) Active Problems Problem Noted Date GERD (gastroesophageal reflux disease) 0 12/25/2021 Paraesophageal hernia 12/24/2021 Iron deficiency anemia 08/18/2021 Hand pain 08/10/2017 Trigger middle finger of left hand 08/10 documented as of this encounter (statuses as of 06/17/2023) Resolved Problems Problem Noted Date Resolved Date [...] as of this encounter (statuses as of 06/17/2023) Immunizations Name Administration Dates Next Due COVID-19 mRNA, LNP-s, No Pre serve, 2-Dose Series (Chomp) 10/13/2021,02/01/2021,01/11/2021 COVID-19, LNP-s, No Preserve , Akhil-sucrose, Ages 12+ (Pfizer) 03/19/2022 Covid-19, Mrna, Lnp-s, Pf, B ivalent, 30 Mcg, IM, 12 yrs and above (Chomp) 09/04/2022 Pneumococcal Conjugate Vacci ne, 20-valent ([id number]) 06/07/2023 Pneumococcal Polysaccharide PPV23 (Pneumovax) 04/17/2022,11/07/2019 Seasonal [...] Specialty Care Team Description 06/17/2023 Imaging Radiology Encounter for screening mammogram for breast cancer 09/08/2023 Office Visit Gastroenterology Kiah Loyd CRNP [address] [place] [address] 11/01/2023 Hospital Encounter Endoscopy Keenan Loving MD [address] [place] [address] 11/01/2023 Surgery Endoscopy Keenan Loving MD [address] [place], [place] [address] COLONOSCOPY FLEXIBLE PROXIMAL DIAGNOSTIC 11/05/2023 Telemedicine General Surgery Bola Haji MD [address] [place] [address] 12/08/2023 Office Visit Family Medicine Albertina Askew, [address] [place] [address] Pending Results Name Type Priority Associated Diagnoses Date /Time BASIC METABOLIC PANEL Lab Routine Iron deficiency anemia, unspecified iron deficiency anemia type 06/17/2023 7:51 AM EDT IRON SCREEN, INCLUDING TIBC Lab Routine Iron deficiency anemia, unspecified iron deficiency anemia type 06/17/2023 7:51 AM EDT Scheduled Procedures Name Priority Associated Diagnoses Date/Ti me COLONOSCOPY FLEXIBLE PROXIMAL DIAGNOSTIC Change in bowel habits Loose bowel movements 11/01/2023 9:30 AM EST Health Maintenance Due Date Last Done Comments Cologuard 1999 Fecal Occult Blood Test 1999 04/02/1998 Sigmoidoscopy 1999 Zoster Vaccines (2 of 3) 11/20/2014 09/25/2014 Depression Screening, Annual for Pts 12 and Over 10/30/2022 10/30/2021 Mammogram 05/28/2023 05/28/2022, 06/, 05/02/2021, Additional history exists Influenza Vaccine (FLU [...] this encounter Medical Devices Implanted Type Area Chair Pad Maker Device Identifier Shelf Expiration Date Model / Serial / Lot Lens Intraoc 20.5 - [id number] - [id number] Implanted:Qty: 1 on 05/16/2020 by Fer Guzman MD at OR [facility] Left: Eye BAUSCH & LOMB 10/21/2024 [id number] / [id number] / [id number] Lens Intraoc 22.0 - [id number] - [id number] Implanted:Qty: 1 on 06/04/2020 by Fer Guzman MD at OR [facility] Right: Eye BAUSCH & LOMB 10/21/2024 [id number] / [id number] / Allomax Mesh 2 X 4 [id number] - [id number] - [id number] Implanted:Qty: 1 on 12/24/2021 by Bola Haji MD at OR [facility] N/A: Abdomen CR BARD : DAVOL 01/19/2026 [id number] / [id number] / [id number] documented as of this encounter Visit Diagnoses Diagnosis Encounter for screening mammogram for breast cancer Iron deficiency anemia, unspecified iron deficiency anemia type Change in bowel habits Other symptoms [...] the patient have Health Care Power of Adult Basic Education Manager? No Care Teams Crime Lab Technician Relationship Specialty Start Date End Date Albertina Askew, DO [address] [place] [address] PCP - General Family Medicine 05/03/20 documented as of this encounter
--- OUTSIDE RECORDS SUMMARY | 2023-11-24 05:28 | External Medical Summary | Summary of Care ---
Author Name Unknown Organization [facility] Address [address] [place] [address] Phone [phone] Care Team Providers Care Segmental Paving Supervisor Name Role Phone Albertina Askew Primary Care Provider [phone] Reason for Visit * Reason Comments Urinary Tract Infection Symptoms C/o bur shaheen with urination, urgency, frequency, fullness in bladder, chills on and off. Sx started 3 days ago. Encounter Details Date Type Department Care Team (Late st Contact Info) Description 10/13/2023 10:00 AM EST Office Visit General Internal Medicine [facility] [address] [facility] [place] [address] Ranjit Barajas PA-C [address] [facility] [place] [address] Dysuria*; Acute cystitis with hematuria Allergies Active Allergy Reactions Criticality Noted Date Comments Nitrofurantoin Macrocrystal Hives 01/31/20 19 Scopolamine 12/18/2022 Long withdrawal symptom Sulfa Antibiotics 06/04/2008 RASH documented as of this encounter (statuses as of 10/13/2023) Medications Medication Sig Dispensed Refills Start Date End Date Status Multiple Vitamins-Minerals (MULTIVITAMIN ADULT EXTRA C) CHEW Take by mouth daily. 0 Active Calcium Carb-Cholecalcife rol 600-800 MG-UNIT Oral Tablet Take 1 Tablet by mouth in the morning. 0 Active [place]-3 Fatty Acids (OMEGA-3 CF) 1000 MG CAPS [...] mouth. 0 Active Cephalexin 250 MG Oral CapsuleIndication s:Acute cystitis with hematuria Take 1 Capsule by mouth in the morning and 1 Capsule at noon and 1 Capsule in the evening and 1 Capsule before bedtime. Do all this for 10 days. 40 Capsule 0 10/13/2023 3 Active nystatin (NYSTOP) 684918 UNIT/GM powder Apply topically to affected area 2 times a day. Apply to affected area 15 g 3 06/14/2019 3 Discontinue d(Patient preference/ discontinua tion) Clotrimazole 1 % External Cream (Lotrimin AF)Indications:Ca ndida infection Apply topically to affected area 2 times a day for 28 days. To affected area for up to 4 weeks. 15 g 0 06/07/2023 3 Discontinue d(Patient preference/ discontinua tion) Colestipol HCl 1 GM Oral Tablet (Colestid) Take 1 to 2 tablets by mouth with lunch every day 60 Tablet 5 06/07/2023 3 Discontinue d(Patient preference/ discontinua tion) documented as of this encounter (statuses as of 10/13/2023) Active Problems Problem Noted Date Diagnosed Date GERD (gastroesophageal reflux disease) 2 Paraesophageal hernia 12/24/2021 Iron deficiency anemia 08/18/2021 Hand pain 08/10/2017 Trigger middle finger of left hand 08/10/2017 documented as of this encounter (statuses as of 10/13/2023) Resolved Problems Problem Noted Date Diagnosed Date [...] as of this encounter (statuses as of 10/13/2023) Immunizations Name Administration Dates Next Due COVID-19 mRNA, LNP-s, No Pre serve, 2-Dose Series (AlterPoint) 10/13/2021,02/01/2021,01/11/2021 COVID-19, LNP-s, No Preserve , Akhil-sucrose, Ages 12+ (Pfizer) 03/19/2022 Covid-19, Mrna, Lnp-s, Pf, B ivalent, 30 Mcg, IM, 12 yrs and above (AlterPoint) 09/04/2022 Pneumococcal Conjugate Vacci ne, 20-valent ([id number]) 06/07/2023 Pneumococcal Polysaccharide PPV23 (Pneumovax) 04/17/2022,11/07/2019 SEASONAL [...] Sign Reading Time Taken Comments Blood Pressure 110/80 10/13/2023 9:49 AM EST Pulse 65 10/13/2023 9:49 AM EST Temperature 36.8 C (98.3 F) 10/13/2023 9:49 AM ES T Respiratory Rate - - Oxygen Saturation 98% 10/13/2023 9:49 AM EST Inhaled Oxygen Concentration - - Weight 70 kg (154 lb 4.8 oz) 10/13/2023 9:49 AM EST Height - - Body Mass Index 26.69 06/07/2023 3:14 PM EDT documented in this [...] as of this encounter Progress Notes * Ranjit Barajas PA-C - 10/13/2023 9:48 AM EST Subjective: Purnima Reid is a 68 year old female. Chief Complaint Patient presents with Urinary Tract Infection Symptoms C/o burning with urination, urgency, frequency, fullness in bladder, chills on and off. Sx started 3 days ago. HPI: 68 y/o female with complaint of dysuria and urgency for three days without blood, back/flank pain, fever. No recent UTI. PMH: Patient Active Problem List Diagnosis Code Hand [...] as needed for Wheezing. 18 g 0 Co Q 10 100 MG Oral Capsule Take by mouth. Omeprazole 20 MG Oral Capsule Delayed Release [...] Oral Capsule Take 2 Capsules by mouth. Cephalexin 250 MG Oral Capsule Take 1 Capsule by mouth in the morning and 1 Capsule at noon and 1 Capsule in the evening and 1 Capsule before bedtime. Do all this for 10 days. 40 Capsule 0 [place]-3 Fatty Acids (OMEGA-3 CF) 1000 MG CAPS Take by mouth daily. Loratadine 10 MG Oral Tablet Take 1 Tablet by mouth in the morning. (Patient not taking: Reported on 09/08/2023) Tums Extra Strength 750 750 MG Oral Tablet Chewable (calcium CARBonate) Take 2 Tablets by mouth as needed for Heartburn. Scopolamine 1 MG/3DAYS Transdermal Patch 72 Hour (Transderm-Scop) Place 1 Patch topically on the skin every 3 days. 4 hours before event. May replace every 3 days. . 4 Patch 1 No current facility-administered medications for this visit. Review of patient's allergies indicates: Allergen Reactions Macrobid [Nitrofurantoin Macrocrystal] Hives Scopolamine Long withdrawal symptom Sulfa Antibiotics RASH All other review of systems reviewed and negative other than mentioned in HPI. Objective: BP 110/80 | Pulse 65 | Temp 36.8 C (98.3 F) (Tympanic) | Wt 70 kg (154 lb 4.8 oz) | LMP 12/23/2005 | SpO2 98% | BMI 26.69 kg/m | BSA 1.77 m Results for orders placed or performed in visit on 10/13/23 URINALYSIS, POINT OF CARE (ENTER/EDIT) Result Value Ref Range Color, Urine Brown Yellow or Light Yellow Clarity, Urine Clear Clear Glucose, Urine Negative Negative mg/dL Bilirubin, Urine Negative Negative Ketone, Urine Negative Negative mg/dL Specific [place], Urine 1.025 1.003 - 1.030 Blood, Urine Large Negative pH, Urine 5.5 5.0 - 7.5 units Protein, Urine 100 Negative mg/dL Urobilinogen, Urine 0.2 0.2 - 1.0 mg/dL Nitrite, Urine Negative Negative Esterase, Urine Trace Negative Physical Exam Constitutional: General: She is not in acute distress. Appearance: Normal appearance. She is normal weight. She is not ill-appearing or toxic-appearing. HENT: Head: Normocephalic and atraumatic. Eyes: Extraocular Movements: Extraocular movements intact. Conjunctiva/sclera: Conjunctivae normal. Pupils: Pupils are equal, round, and reactive to light. Cardiovascular: Rate and Rhythm: Normal rate and regular rhythm. Heart sounds: Normal heart sounds. No murmur heard. No friction rub. No gallop. Pulmonary: Effort: Pulmonary effort is normal. Breath sounds: Normal breath sounds. No wheezing, rhonchi or rales. Abdominal: General: Bowel sounds are normal. There is no distension. Palpations: Abdomen is soft. There is no mass. Tenderness: There is abdominal tenderness (mild suprapubic). There is no guarding or rebound. Neurological: Mental Status: She is alert. ASSESSMENT: Dysuria (Primary) - URINALYSIS, POINT OF CARE (ENTER/EDIT) - CULTURE, URINE, QUANTITATIVE Acute cystitis with hematuria - Cephalexin 250 MG Oral Capsule; Take 1 Capsule by mouth in the morning and 1 Capsule at noon and 1 Capsule in the evening and 1 Capsule before bedtime. Do all this for 10 days. - URINALYSIS, REFLEX TO MICROSCOPIC; Future; Expected date: 11/24/2023 Will treat for above with keflex based on allergies. Obtain culture and change as appropriate. Repeat UA in 6 weeks given large amount of microscopic blood noted to ensure clearing. Follow Up: Return if symptoms worsen or fail to improve. Ranjit Barajas PA-C documented in this encounter Nursing Notes * DempseyLyndsey LPN - 10/13/2023 9:49 AM EST Chief Complaint Patient presents with Urinary Tract Infection Symptoms C/o burning with urination, urgency, frequency, fullness in bladder, chills on and off. Sx started 3 days ago. documented in this encounter Plan of Treatment Upcoming Encounters Date Type Department Care Team (Late st Contact Info) Description 11/05/2023 9:00 AM EST [facility] [address] [place] [address] Bola Haji MD [address] [place] [address] 12/08/2023 9:30 AM EST Office Visit [facility] [address] [place] [address] Albertina Askew DO [address] [place] [address] Scheduled Orders Name Type Priority Associated Diagnoses Orde r Schedule CULTURE, URINE, QUANTITATIVE Lab Routine Dysuria Ordered: 10/13/2023 URINALYSIS, REFLEX TO MICROSCOPIC Lab Routine Acute cystitis with hematuria Expected: 11/24/2023, Expires: 10/13/2024 Health Maintenance Due Date Last Done Comments [...] this encounter Medical Devices Implanted Type Area Quiller Machine Fixer Device Identifier Shelf Expiration Date Model / Serial / Lot Lens Intraoc 20.5 - [id number] - [id number] Implanted:Qty: 1 on 05/16/2020 by Fer Guzman MD at OR [facility] Left: Eye BAUSCH & LOMB 10/21/2024 [id number] / [id number] / [id number] Lens Intraoc 22.0 - [id number] - [id number] Implanted:Qty: 1 on 06/04/2020 by Fer Guzman MD at OR [facility] Right: Eye BAUSCH & LOMB 10/21/2024 [id number] / [id number] / Allomax Mesh 2 X 4 [id number] - [id number] - [id number] Implanted:Qty: 1 on 12/24/2021 by Bola Haji [place] [facility] [place]/A: Abdomen CR BARD : DAVOL 01/19/2026 [id number] / [id number] / [id number] documented as of this encounter Procedures Procedure Name Priority Date/Time Associated Diagnosis Comments URINALYSIS, POINT OF CARE (ENTER/EDIT) Routine 10/13/2023 Dysuria documented in this encounter Results * URINALYSIS, POINT OF CARE (ENTER/EDIT) (10/13/2023) Color, Urine Brown Yellow or Light Yellow Clarity, Urine Clear Clear Glucose, Urine Negative Negative mg/dL Bilirubin, Urine Negative Negative Ketone, Urine Negative Negative mg/dL Specific [place], Urine 1.025 1.003 - 1.030 Blood, Urine Large Negative pH, Urine 5.5 5.0 - 7.5 units Protein, Urine 100 Negative mg/dL Urobilinogen, Urine 0.2 0.2 - 1.0 mg/dL Nitrite, Urine Negative Negative Esterase, Urine Trace Negative Urine 10/13/2023 Ranjit Barajas PA-C LAB POINT OF CARE TEST ENTER/EDIT ORDERABLES documented in this encounter Visit Diagnoses Diagnosis Dysuria- Primary Acute cystitis with hematuria Acute cystitis documented [...] the patient have Health Care Power of License Registration Examiner? No Care Teams Segmental Paving Supervisor Relationship Specialty Start Date End Date Albertina Askew DO [address] [place] [address] PCP - General Family Medicine 05/03/20 documented as of this encounter"
--- OUTSIDE RECORDS SUMMARY | 2023-11-24 05:29 | External Medical Summary | Summary of Care ---
Author Name Unknown Organization [facility] Address [address] [place] [address] Phone [phone] Care Team Providers Care Detail Assembler Name Role Phone Albertina Askew Primary Care Provider [phone] Reason for Visit * Reason Comments Outpatient Testing Encounter Details Date Type Department Care Team Description 06/07/2023 Laboratory Laboratory, [place] [address] [place] [address] [facility] [address] [place] [address] Gastroesophageal reflux disease without esophagitis; Encounter for long-term (current) use of medications Allergies Active Allergy Reactions Severity Noted Date Comments Nitrofurantoin Macrocrystal Hives 01/31/20 19 Scopolamine 12/18/2022 Long withdrawal symptom Sulfa Antibiotics 06/04/2008 RASH documented as of this encounter (statuses as of 06/07/2023) Medications Medication Sig Dispensed Refills Start Date End Date Status nystatin (NYSTOP) 756062 UNIT/GM powder Apply topically to affected area 2 times a day. Apply to affected area 15 g 3 06/14/2019 Active Additional Information Patient taking differently:Topical BID(AM/PM), Apply to affected area,Indications: as needed, Reported on 12/18/2022 Multiple Vitamins-Minerals (MULTIVITAMIN ADULT EXTRA C) CHEW Take by mouth daily. 0 Active Calcium Carb-Cholecalcifer ol 600-800 MG-UNIT Oral Tablet Take 1 Tablet by mouth in the morning. 0 Active Cholecalciferol (VITAMIN D3) 50 MCG (2000 UT) Capsule Take 1 Capsule by mouth in the morning. 0 Active Probiotic Product (PROBIOTIC ACIDOPHILUS BIOBEADS) Capsule Take 1 Cap by mouth daily. 0 Active [place]-3 Fatty Acids (OMEGA-3 CF) 1000 MG CAPS [...] mouth as needed for Heartburn. 0 Active Vitamin B-12 1000 MCG Oral Tablet Take 1 Tablet by mouth in the morning. 0 Active Co Q 10 100 MG Oral Capsule Take by mouth. 0 Active Diclofenac Sodium 75 MG Oral Tablet Delayed Release (Voltaren) TAKE ONE TABLET BY MOUTH IN THE MORNING AND ONE TABLET BEFORE BEDTIME WITH FOOD 60 Tablet 3 10/19/2022 10/19/2023 Active Additional Information Patient not taking.Reported on 12/18/2022 Scopolamine 1 MG/3DAYS Transdermal Patch 72 Hour (Transderm-Scop) Place 1 Patch topically on the skin every 3 days. 4 hours before event. May replace every 3 days. . 4 Patch 1 11/21/2022 Active Additional Information Patient not taking.Reported on 12/18/2022 valACYclovir HCl 1 GM Oral Tablet (Valtrex) take 2 tablets by mouth every morning and 2 tablets at bedtime for COLD SORE 12 Tablet 1 12/22/2022 Active Omeprazole 20 MG Oral Capsule Delayed Release (PriLOSEC)Indicati ons:Gastroesophage al reflux disease without esophagitis take 1 capsule by mouth every morning 1 hour before breakfast 90 Capsule 2 03/04/2023 Active documented as of this encounter (statuses [...] mRNA, LNP-s, No Pre serve, 2-Dose Series (Glamit) 10/13/2021,02/01/2021,01/11/2021 COVID-19, LNP-s, No Preserve , Akhil-sucrose, Ages 12+ (Pfizer) 03/19/2022 Covid-19, Mrna, Lnp-s, Pf, B ivalent, 30 Mcg, IM, 12 yrs and above (Glamit) 09/04/2022 Pneumococcal Polysaccharide PPV23 (Pneumovax) 04/17/2022,11/07/2019 Seasonal Influenza, [...] Packs/Day Years Used Date Smoking Tobacco: Never Smokeless Tobacco: Never Alcohol Use Standard Drinks/Week Comments Yes 0 [...] Specialty Care Team Description 06/07/2023 Office Visit Family Medicine Albertina Askew DO [address] [place] [address] Arrived 06/07/2023 Office Visit Gastroenterology Kiah Loyd CRNP [address] [place] [address] 06/17/2023 Imaging Radiology 11/05/2023 Telemedicine General Surgery Bola Haji MD [address] [facility] [place] [address] Pending Results Name Type Priority Associated Diagnoses Date /Time VITAMIN B12 Lab Routine Gastroesophageal reflux disease without esophagitis Encounter for long-term (current) use of medications 06/07/2023 10:26 AM EDT Health Maintenance Due Date Last Done Comments Cologuard 1999 Fecal Occult Blood Test 1999 04/02/1998 Sigmoidoscopy 1999 Zoster Vaccines (2 of 3) 11/20/2014 09/25/2014 Depression Screening, Annual for Pts 12 and Over 10/30/2022 10/30/2021 Pneumococcal Vaccine: 65+ Years (2 - PCV) 04/17/2023 04/17/2022, 11/07/2019 Mammogram 05/28/2023 05/28/2022, 04/23, 05/02/2021, Additional history exists Influenza Vaccine (FLU shot) (#1) 2023 09/07/2022, 10/01/2021, 10/01/2021, Additional history exists Diabetes Screening 12/18/2025 12/18/2022, [...] Completed 09/04/2022, , 10/13/2021, Additional history exists GARDASIL-HPV IMMUNIZATION SERIES Aged Out No longer eligible based on patient's age to complete this topic Hepatitis B Aged Out No longer eligi ble based on patient's age to complete this topic MENINGOCOCCAL (MENACTRA/MENVEO) Aged Out No longer eligible based on patient's age to complete this topic documented as of this encounter Medical Devices Implanted Type Area Shearing Supervisor Device Identifier Shelf Expiration Date Model / Serial / Lot Lens Intraoc 20.5 - [id number] - [id number] Implanted:Qty: 1 on 05/16/2020 by Fer Guzman MD at [facility] Left: Eye BAUSCH [employer] LOMB 10/21/2024 [id number] / [id number] / [id number] Lens Intraoc 22.0 - [id number] - [id number] Implanted:Qty: 1 on 06/04/2020 by Fer uGzman MD at OR [facility] Right: Eye BA[employer]CH [employer] LOMB 10/21/2024 [id number] / [id number] / Allomax Mesh 2 X 4 [id number] - [id number] - [id number] Implanted:Qty: 1 on 12/24/2021 by Bola Haji MD at [facility] N/A: Abdomen CR BARD : DAVOL 01/19/2026 [id number] / [id number] / [id number] documented as of this encounter Visit Diagnoses Diagnosis Gastroesophageal reflux disease without esophagitis Esophageal reflux Encounter for long-term (current) use of medications Encounter for long-term (current) use of other medications documented in this encounter Advance Directives Latest [...] the patient have Health Care Power of Boring Machine Operator Horizontal? No Care Teams Detail Assembler Relationship Specialty Start Date End Date Albertina Askew, [address] [place] [address] PCP - General Family Medicine 05/03/20 documented as of this encounter
--- OUTSIDE RECORDS SUMMARY | 2023-11-24 05:29 | External Medical Summary ---
Author Name Unknown Address Unknown Organization [id number]:[facility] - [address] [place] [address] Laboratory Report Ordering Provider Test Date Status [place] 06/07/2023 10:26:43 Final Observation Date Value Abnormality Reference (Units ) Status Vitamin B12 06/07/2023 10:26:43 313 [id number] (pg/mL) Final Performing Location [facility] - [address] [place] [address]
[2023-11-24 06:23] LABS: Lyme Ab IgG w/WB Rflx Negative (Negative); Lyme Ab IgM w/WB Rflx Negative (Negative)
[2023-11-24] MEDS: ENOXAPARIN INJ 40 MG/0.4 ML SYR SQ SCH (08:40)
--- NOTE | 2023-11-24 08:41 | Cardiology Consultation ---
Date of Consultation November 24, 2023 Assessment & Plan (1) Heart block AV second degree: (2) Vertigo: Plan Assessment: 68 year old female with several hour episode of vertigo, with question of arrhythmia on telemetry during course of evaluation. Plan: 1. Heart block AV second degree -No prior history of heart disease for self. Does endorse a sister with down syndrome that had congenital heart defects. -EKG during time of patient's vertigo symptoms demonstrate NSR with no acute changes or ectopy -a serious of 3 dropped beats, non-synchronized occurred at 0015 on telemetry, but no further episodes since and patient was asymptomatic at the time indicating this is not likely the cause of her vertigo event. -Will obtain echocardiogram to assess overall structure and function. -Lyme test negative -Electrolytes WNL -TSH normal. -Pending echo, will likely recommend protracted cardiac monitoring following discharge to assess for any recurrence of arrhythmia or signs of high grade heart block. Case has been discussed with Dr. Lazaro. Further recommendations regarding plan of care as per his assessment. I spent a total of 30 minutes on the date of service in preparation, delivery, documentation of the care provided to the patient excluding any time spent in the performance of separately billed services. THEODORE [facility] Cardiology [facility] Supervising Physician Co-Signing Physician Notes Patient was seen and personally examined. Agree with assessment and plan as noted above. Predominant symptoms consistent with acute vertigo and possible vasovagal exacerbation during acute nausea. Telemetry last evening demonstrated transient second-degree AV block during sleeping hours, 3 beat intervals. Do not suspect these as the cause of patient complaint and are likely incidental findings on telemetry Will however investigate as above Echocardiogram demonstrates preserved wall motion and function Telemetry to be maintained while in hospital Recommend Zio patch on discharge to assess rhythm and conduction during usual activities History of Present Illness Reason for Consultation: Second Degree heart block [facility]ing Physician[facility] Attending Physician: Hemal Dutton MD History of Present Illness Patient is a 68 year-old female with PMHx significant for GERD that presented to the ER with complaints of intractable nausea, vomiting and vertigo. Her symptoms started yesterday while she was quilting. patient states that she bent over to check something on the underside of her quilt as it was on the longarm when she developed sudden dizziness described as the room spinning and broke out in an intense drenching sweat. She states that she became very nauseated and started to dry heave. Her assisted her up the stairs to lay down, but she felt no better. After 20 minutes her symptoms had lessened in intensity, but had not resolved prompting her to present to the ED. EKG upon admission shows NSR She was given an IV saline bolus and one time dose of IV Benadryl. She reports falling asleep for a few hours and woke with resolution of all symtoms. She denies any recent acute illness symptoms, although does report that her has been sick with influenza so she has been taking a lot of vitamin C. We were asked to evaluate this patient for concerns of Second degree HB. Review of Telemetry demonstrates a series of 3 complexes demonstrated a dropped beat that occurred at 0015 per the monitor. There does not appear to be a lengthening pattern, nor consistent pattern as it occurred over a course of 3 beats. Further review of telemetry does not demonstrate any ectopy. Allergies Allergy/AdvReac Type Severity Reaction Status Date / Time nitrofurantoin Allergy Intermediate Hives Verified 11/23/23 23:13 [From Macrobid] Sulfa (Sulfonamide Allergy Intermediate Rash Verified 11/23/23 23:13 Antibiotics) scopolamine AdvReac Intermediate LONG Verified 11/23/23 23:13 WITHDRAWAL SYMPTOMS Home Medications Medication Instructions Recorded Confirmed Type albuterol sulfate 90 mcg/actuation 2 inh inhalation Q4H PRN Shortness 08/15/21 11/23/23 History aerosol inhaler (Ventolin HFA) Of Breath Or Wheezing calcium carbonate 500 mg-vitamin 1 tab PO DAILY 08/15/21 11/23/23 History D3 3.125 mcg (125 unit) tablet Bacillus coagulans 500 million 1 cap PO DAILY 11/23/23 11/23/23 History cell-lactase 3,000 unit capsule (Digestive Advantage Lactose Supprt) calcium carbonate 300 mg (750 mg) 600 mg PO DIRECTED PRN Heartburn 11/23/23 11/23/23 History chewable tablet (Tums E-X) cholecalciferol (vitamin D3) 25 25 mcg PO QPM 11/23/23 11/23/23 History mcg (1,000 unit) capsule (Vitamin D3) coenzyme Q10 100 mg capsule 100 mg PO DAILY 11/23/23 11/23/23 History (CoQ-10) multivitamin with minerals 1 tab PO DAILY 11/23/23 11/23/23 History omega-3 fatty acids 1,000 mg 1,000 mg PO DAILY 11/23/23 11/23/23 History capsule omeprazole 20 mg capsule,delayed 20 mg PO DAILYBB 11/23/23 11/23/23 History release psyllium husk 0.4 gram capsule 0.8 g PO DAILY 11/23/23 11/23/23 History (Fiber (psyllium husk)) valacyclovir 1 gram tablet 2,000 mg PO Q12H PRN Cold Sores 11/23/23 11/23/23 History (Valtrex) Patient History Medical History (Updated 11/24/23 @ 08:21 by Ursula Rasheed DO) Anemia Hiatal hernia Surgical History (Updated 08/15/21 @ 11:45 by Sandra Morin RN) Hx of LASIK H/O cataract extraction H/O breast biopsy Social History Smoking Status: Never smoker Hx Alcohol Use: Yes Hx Substance Use: No Preferred Language: Italian Communication Ability: Effective 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 Beliefs That Will Affect Care: None Current Living Situation: Spouse Feels Safe at Home: Yes Assistive Devices: None Review of Systems Review of Systems: All systems reviewed & are unremarkable except as noted in HPI & below Physical Exam Constitutional: WD/WN, vitals as above Neck: normal visual inspection and trachea midline Respiratory: normal respiratory effort, lungs clear to auscultation Cardiovascular: RRR, no murmur, no edema Skin: no rashes, warm and dry Psychiatric: A+Ox3, euthymic affect Results & Data Vital Signs (Past 12 Hours) Vital Signs Temp Pulse Pulse Resp BP BP Pulse Ox 11/24/23 08:00 53 L 16 120/84 98 11/24/23 07:14 71 11/24/23 07:00 59 L 16 123/86 96 11/24/23 06:00 77 17 114/69 94 11/24/23 04:57 36.7 C 58 L 16 119/64 95 11/24/23 04:00 62 20 127/82 95 11/24/23 04:00 68 18 127/82 96 11/24/23 03:34 67 11/24/23 03:00 76 15 125/79 95 11/24/23 02:30 64 15 127/81 98 11/24/23 02:00 63 16 129/76 100 11/24/23 01:30 72 24 145/105 H 99 11/24/23 01:00 67 16 134/85 99 11/24/23 00:30 71 15 139/86 99 11/24/23 00:25 70 18 139/86 99 11/24/23 00:00 63 20 126/90 97 11/23/23 23:30 64 17 127/91 97 11/23/23 23:20 36 L 11/23/23 23:00 63 18 125/81 11/23/23 22:58 66 22 11/23/23 22:58 67 11/23/23 22:50 36.4 C L 64 20 128/86 100 O2 Del Method O2 Flow Rate 11/24/23 08:00 Room Air 11/24/23 07:14 11/24/23 07:00 Room Air 11/24/23 06:00 Room Air 11/24/23 04:57 Room Air 11/24/23 04:00 Room Air 11/24/23 04:00 Room Air 11/24/23 03:34 11/24/23 03:00 Room Air 11/24/23 02:30 Room Air 11/24/23 02:00 11/24/23 01:30 11/24/23 01:00 11/24/23 00:30 11/24/23 00:25 Room Air 11/24/23 00:00 11/23/23 23:30 11/23/23 23:20 11/23/23 23:00 11/23/23 22:58 11/23/23 22:58 11/23/23 22:50 Nasal Cannula 4 Laboratory Results Cardiac Enzymes 11/23/23 11/24/23 Range/Units 23:04 04:51 AST 18 (13-39) U/L Troponin I High Sens 2.8 < 2.3 (0-14) pg/ml CBC 11/23/23 11/24/23 Range/Units 23:04 04:51 WBC 7.01 9.01 (4.8-10.8) K/ul RBC 4.53 4.55 (4.20-5.40) M/uL Hgb 13.9 13.7 (12.0-16.0) g/dl Hct 41.2 41.0 (37.0-47.0) % Plt Count 174 183 (130-400) K/uL Neut # (Auto) 4.36 (1.40-6.50) K/uL Lymph # (Auto) 2.02 (1.20-3.40) K/uL [place] # (Auto) 0.36 (0.11-0.59) K/uL Eos # (Auto) 0.20 (0.00-0.50) K/uL Baso # (Auto) 0.04 (0.00-0.20) K/uL Comprehensive Metabolic Panel 11/23/23 11/24/23 Range/Units 23:04 04:51 Sodium 138 140 (136-145) mmol/L Potassium 4.0 4.3 (3.5-5.1) mmol/L Chloride 106 108 H (98-107) mmol/L Carbon Dioxide 25 25 (21-32) mmol/L BUN 16 13 (6-23) mg/dl Creatinine 1.11 0.96 (0.6-1.2) mg/dl Glucose 143 H 125 H (70-99(Fasting)) mg/dl Calcium 8.9 9.0 (8.6-10.3) mg/dl AST 18 (13-39) U/L ALT 15 (7-52) U/L Alkaline Phosphatase 92 (34-104) U/L Total Protein 6.7 (6.0-8.3) gm/dl Albumin 4.1 (3.4-5.0) gm/dl Intake and Output 11/23/23 11/24/23 11/24/23 22:59 06:59 14:59 Intake Total 1000 / 1000 Balance 1000 / 1000 Intake: IV 1000 / 1000 Sodium Chloride 0.9% 1,000 ml @ 1000 / 1000 999 mls/hr IV .Q1H1M ONE Rx#: [id number] Other: Weight 72.6 kg 67 kg Weight Measurement Method [facility] Diagnostic Findings EKG 11/24/2023 0425 NSR Rate 70bpm EKG 11/23/2023 NSR Rate 65 BPM
--- NOTE | 2023-11-24 11:10 | Electrocardiogram Report ---
Test Reason : Blood Pressure : / mmHG Vent. Rate : 065 BPM Atrial Rate : 065 BPM P-R Int : 190 ms QRS Dur : 088 ms QT Int : 436 ms P-R-T Axes : 062 069 059 degrees QTc Int : 453 ms Normal sinus rhythm RSR' or QR pattern in V1 suggests right ventricular conduction delay Otherwise Normal ECG No previous ECGs available Confirmed by Julián Nash ([id number]) on 11/24/2023 11:09:49 AM Referred By: REFERRED SELF Confirmed By:Julián Nash
--- NOTE | 2023-11-24 11:14 | Electrocardiogram Report ---
Test Reason : Blood Pressure : / mmHG Vent. Rate : 070 BPM Atrial Rate : 070 BPM P-R Int : 144 ms QRS Dur : 080 ms QT Int : 408 ms P-R-T Axes : 045 038 041 degrees QTc Int : 440 ms Normal sinus rhythm Normal ECG When compared with ECG of 23-NOV-2023 22:54, (unconfirmed) No significant change was found Confirmed by Julián Nash ([id number]) on 11/24/2023 11:14:22 AM Referred By: REFERRED SELF Confirmed By:Juliná Nash
[2023-11-24 11:37] LABS: Appearance Urine Clear (Clear); Bacteria Urine Automated 4+ (Negative); Bilirubin Urine Negative (Negative); Blood Urine Negative (Negative); Color Urine Yellow; Epithelial Cell Urine Auto 0-5 /lpf (0-5); Glucose Urine UA Negative (Negative); Ketones Urine Negative (Negative); Leukocyte Esterase Urine 2+ (Negative); Nitrite Urine Negative (Negative); Protein Urine Negative (Negative); RBC Urine Automated 0-4 /hpf (0-4); Urobilinogen Urine Negative (Negative); WBC Urine Automated >30 /hpf (0-5); pH Urine 6.5 (4.5-7.5)
--- NOTE | 2023-11-24 14:41 | Communication Note ---
Date of Service: November 24, 2023 Patient seen and examined at bedside. She is lying in the bed comfortably; not in distress. She reports that the vertigo has improved compared to admission. Telemetry shows sinus rhythm in AM. Cardiology consult appreciated; Echocardiogram shows EF of 65 to 70% with mild concentric LVH. Physical exam; Constitutional: Alert oriented x 3; no apparent distress Respiratory: normal respiratory effort, lungs clear to auscultation, no wheeze, rales, rhonchi. Normal insp/exp effort, no accessory muscle use Cardiovascular: RRR, no murmur, no edema Vessels: no JVD or carotid bruit Chest: normal inspection of chest Abdomen: normal bowel sounds, soft, nontender, no hepatosplenomegaly Musculoskeletal: no cyanosis or clubbing, extremities motor strength 5/5 Skin: no rashes, warm and dry normal turgor Neurologic: EOMI intact, PERRLA, moves all extremities. Psychiatric: A+Ox3, euthymic affect
[2023-11-24] MEDS ORDERED: cefTRIAXone SODIUM 2,000 MG in DEXTROSE 5 % MINI-B 50 ML IV SCH (17:00)
[2023-11-25] MEDS: ENOXAPARIN INJ 40 MG/0.4 ML SYR SQ SCH (07:53)
--- NOTE | 2023-11-25 14:59 | Discharge Summary ---
Date of Service November 25, 2023 Admission HPI Per Admitting Provider Pt is a 68yoF with PMhx significant for GERD admitted with concern for Type II heart block after presenting with intractable N/V and vertigo. Pt at bedside. Pt states that about 9pm was quilting and occasionally has to bend to look under the quilt. After an episode of bending, she stood up and noticed that everything was spinning. Got clod and clammy, states she had sweat dripping down her face. Denied chest pain at that time, denied SOB. States this has never happened before. Denies recent tick bites. States she had episodes of N/V and is currently feeling better. States that the room is no longer spinning but feels dizzy or uneasy with walking to the bathroom. Notes a Hx of chronic dysuria. Notes recent episode of gross hematuria and has scheduled follow up with Urology in November. Per ED provider pt had to receive Versed due to current shortage of other benzos, which helped her symptoms. Was being monitored when second degree heart block was noted with HR in the 30s. Admission Exam Per Admitting Provider General: Alert, oriented. No acute distress Skin: No noted rashes or bruises Psych: Appropriate mood and affect Neuro: No gross deficits HEENT: NC/AT Chest: Nontender to palpation. CV: RRR Resp: Breath sounds clear bilaterally, no increased effort of breathing. Abdomen: Soft, nontender, nondistended. Extremities: No edema in lower extremities bilaterally. Principal Diagnosis Vertigo likely BPPV Secondary AV block Acute UTI Discharge Exam Constitutional: WD/WN, vitals as above, NAD, sitting up in bed, pleasant, conversing easily Respiratory: normal respiratory effort, lungs clear to auscultation, no wheeze, rales, rhonchi. Normal insp/exp effort, no accessory muscle use Cardiovascular: RRR, no murmur, no edema Vessels: no JVD or carotid bruit Chest: normal inspection of chest Abdomen: normal bowel sounds, soft, nontender, no hepatosplenomegaly Musculoskeletal: no cyanosis or clubbing, extremities motor strength 5/5 Skin: no rashes, warm and dry normal turgor Neurologic: PERRL, EOMI, accommodation nl, no face palsy, no dysarthria CN's II- XI intact bilaterally and moves all extremities Psychiatric: A+Ox3, euthymic affect Discharge Data Allergies Allergy/AdvReac Type Severity Reaction Status Date / Time nitrofurantoin Allergy Intermediate Hives Verified 11/23/23 23:13 [From Macrobid] Sulfa (Sulfonamide Allergy Intermediate Rash Verified 11/23/23 23:13 Antibiotics) scopolamine AdvReac Intermediate LONG Verified 11/23/23 23:13 WITHDRAWAL SYMPTOMS Consultations 11/24/23 03:46 ED Decision to Admit Stat 11/24/23 04:39 Consult Cardiology Routine Ordered Studies 11/23/23 23:46 CT head/brain wo con Stat Hospital Course (1) Heart block AV second degree: (2) Intractable nausea and vomiting: (3) Vertigo: Plan Patient is a 68yoF with PMhx significant for GERD presented with intractable nausea, vomiting and vertigo. In the ED, patient was found to have second-degree heart block. Telemetry demonstrates a series of 3 complexes demonstrated a dropped beat. Patient was admitted to the hospital for further observation. Cardiology was consulted for comanagement. Echocardiogram showed EF of 65 to 70%, mild concentric LVH. Grade 1 diastolic dysfunction. She did not have any other events on the telemetry during the hospitalization Vertigo improved. Vestibular PT was done. She was found to have acute UTI for which she was treated with antibiotics. Patient was discharged home with instructions to follow-up with PCP for Zio patch monitoring. Please note the above document was generated using voice recognition software. It may contain grammatical, syntax or spelling errors. Any formal questions or concerns about the content, text or information contained within the body of this dictation should be directly addressed to the provider for clarification Total Time Total Time Spent Total Time Spent (In Minutes): 35 Total Time Includes: Examination of the Patient, Discharge Planning, Medication Reconciliation, Communication With Other Providers and Other Discharge Plan Discharge Items Patient Disposition: Home - Self-Care Reason For Visit: VERTIGO Discharge Diagnosis: Vertigo UTI Activity: Resume your previous activity Non-emergency contact: Primary Care Provider Call non-emergency contact if: you have any medication questions Follow-up/Referrals: Albertina Askew DO [Primary Care Provider] - (Date & Time 12/02/2023 10:10 AM Provider Albertina Askew DO Department [facility] ) Diet: Regular Addtl Attending Provider Instructions: You were admitted to the hospital due to vertigo. The likely cause for it is benign paroxysmal positional vertigo. If the dizziness is persistent; please discuss with your primary care doctor for further workup. You are also found to have low heart rate during the hospitalization. It was a transient second-degree AV block. Cardiology evaluated you during the hospitalization. They recommend Zio patch to assess rhythm and conduction during usual activities. Your primary care doctor office will arrange for this at discharge. An appointment will be set up with your primary care doctor as outpatient. You were also found to have UTI for which you are prescribed Augmentin to be taken for 5 days. Pending Studies at Discharge: No Stand-Alone Forms: My [facility] [employer], Smoking Cessation Medications and DC Order Prescriptions: New amoxicillin-pot clavulanate 875-125 mg tablet 1 tab PO BID 5 Days Qty: 10 0RF Continued calcium carbonate-vitamin D3 500 mg(1,250mg) -125 unit Tablet 1 tab PO DAILY albuterol sulfate [Ventolin HFA] 90 mcg/actuation Hfa Aerosol Inhaler 2 inh INHALATION Q4H PRN (Reason: Shortness Of Breath Or Wheezing) omega-3 fatty acids 1,000 mg Capsule 1,000 mg PO DAILY valacyclovir [Valtrex] 1 gram Tablet 2,000 mg PO Q12H PRN (Reason: Cold Sores) calcium carbonate [Tums E-X] 300 mg (750 mg) Tablet,Chewable 600 mg PO DIRECTED PRN (Reason: Heartburn) omeprazole 20 mg Capsule,Delayed Release(Dr/Ec) 20 mg PO DAILYBB multivitamin with minerals Tablet 1 tab PO DAILY cholecalciferol (vitamin D3) [Vitamin D3] 25 mcg (1,000 unit) Capsule 25 mcg PO QPM coenzyme Q10 [CoQ-10] 100 mg Capsule 100 mg PO DAILY Digestive Advantage Lactos Sup 500 million cell-3,000 unit Capsule 1 cap PO DAILY psyllium husk [Fiber (psyllium husk)] 0.4 gram Capsule 0.8 g PO DAILY Discharge Orders: Discharge Order (Routine); Ordered 11/25/23 Ordered By: Hemal Dutton Admission Data Admit Date/Time: 11/24/23 03:54 Attending Provider: Hemal Dutton Admit Provider: Leah Gu Primary Care Provider: Albertina Askew Other Providers: Leah Gu; Laci Lazaro Other Interventions: Discharge Summary Assessment (RN) Last Done: 11/25/23 12:41
--- NOTE | 2023-11-25 15:23 | Cardiology Progress Note ---
Date of Service November 25, 2023 Assessment & Plan (1) Heart block AV second degree: (2) Vertigo: Plan Assessment: 68 year old female with several hour episode of vertigo, with question of arrhythmia on telemetry during course of evaluation. Plan: 1. Heart block AV second degree -No prior history of heart disease for self. Does endorse a sister with down syndrome that had congenital heart defects. -EKG during time of patient's vertigo symptoms demonstrate NSR with no acute changes or ectopy -a serious of 3 dropped beats, non-synchronized occurred at 0015 on telemetry, but no further episodes since and patient was asymptomatic at the time indicating this is not likely the cause of her vertigo event. -Will obtain echocardiogram to assess overall structure and function. -Lyme test negative -Electrolytes WNL -TSH normal. Echocardiogram is normal Telemetry without further arrhythmias suspected vagally mediated in association with acute vertigo complaints. Recommend event monitor post hospital discharge. Management and plan discussed in detail with patient Admission and Anticipated Discharge Date Admission Date: November 24, 2023 Subjective Patient was seen and personally examined. Vertiginous complaints appear to be improving Telemetry without further arrhythmias with normal sinus rhythm Physical Exam Constitutional: WD/WN, vitals as above Neck: normal visual inspection and trachea midline Respiratory: normal respiratory effort, lungs clear to auscultation Cardiovascular: RRR, no murmur, no edema Skin: no rashes, warm and dry Psychiatric: A+Ox3, euthymic affect Results & Data Vital Signs (Past 12 Hours) Vital Signs Temp Pulse Pulse Pulse Resp BP Pulse Ox 11/25/23 12:41 36.7 C 54 L 65 17 106/71 96 11/25/23 12:06 36.7 C 65 17 106/71 96 11/25/23 08:28 36.6 C 51 L 17 130/76 96 11/25/23 06:00 51 L O2 Del Method 11/25/23 12:41 11/25/23 12:06 Room Air 11/25/23 08:28 Room Air 11/25/23 06:00 Laboratory Results Laboratory Results - last 24 hr 11/24/23 11/24/23 17:18 22:38 Troponin I High Sens 2.6 2.9
--- OUTSIDE RECORDS SUMMARY | 2023-11-29 12:52 | External Medical Summary | Summary of Care ---
Author Name Unknown Organization [facility] Address [address] [place] [address] Phone [phone] Care Team Providers Care Parimutuel Ticket Seller Name Role Phone Albertina Askew DO Primary Care Provider Reason for Visit * Reason Onset Date Comments Hospital Follow-Up 11/25/2023 Encounter Details Date Type Department Care Team (Late st Contact Info) Description 11/25/[address] Medicine [facility] [address] [place] [address] Albertina Askew DO [address], [place] [phone] Hospital Follow-Up Allergies Active Allergy Reactions Criticality Noted Date Comments Nitrofurantoin Macrocrystal Hives 01/31/20 19 Scopolamine 12/18/2022 Long withdrawal symptom Sulfa Antibiotics 06/04/2008 RASH documented as of this encounter (statuses as of 11/26/2023) Medications Medication Sig Dispensed Refills Start Date End Date Status Multiple Vitamins-Minerals (MULTIVITAMIN ADULT EXTRA C) CHEW Take by mouth daily. 0 Active Calcium Carb-Cholecalcifero l 600-800 MG-UNIT Oral Tablet Take 1 Tablet by mouth in the morning. 0 Active [place]-3 Fatty Acids (OMEGA-3 CF) 1000 MG CAPS [...] as of this encounter (statuses as of 11/26/2023) Active Problems Problem Noted Date Diagnosed Date GERD (gastroesophageal reflux disease) 2 Paraesophageal hernia 12/24/2021 Iron deficiency anemia 08/18/2021 Hand pain 08/10/2017 Trigger middle finger of left hand 08/10/2017 documented as of this encounter (statuses as of 11/26/2023) Resolved Problems Problem Noted Date Diagnosed Date [...] as of this encounter (statuses as of 11/26/2023) Immunizations Name Administration Dates Next Due COVID-19 mRNA, LNP-s, No Pre serve, 2-Dose Series (Pfizer) 10/13/2021,02/01/2021,01/11/2021 COVID-19, LNP-s, No Preserve , Akhil-sucrose, Ages 12+ (Pfizer) 03/19/2022 Covid-19, Mrna, Lnp-s, Pf, B ivalent, 30 Mcg, IM, 12 yrs and above (Pfizer) 09/04/2022 Pneumococcal Conjugate Vacci ne, 20-valent ([id number]) 06/07/2023 Pneumococcal Polysaccharide PPV23 (Pneumovax) 04/17/2022,11/07/2019 Seasonal [...] encounter Miscellaneous Notes * Telephone Encounter - Roel Randhawa RN - 11/25/2023 2:28 PM EST Patient discharge home 11/25/23 from [facility]. Cardiology consulted and recommend protracted cardiac monitoring following discharge to assess for any recurrence of arrhythmia or signs of high grade heart block. Please consider discussion/ordering at hospital follow up appointment on 12/02/23 (with Dr Cleveland robin). Thank you documented in this encounter Plan of Treatment Upcoming Encounters Date Type Department Care Team (Late st Contact Info) Description 12/02/2023 10:10 AM EST Office Visit [place] [address] [place] [facility] [phone] Albertina Askew, DO [address] [place] [facility] [address] 12/08/2023 9:30 AM EST Office Visit [facility] [address] [facility], [place] [phone] Albertina Askew, DO [address] [place] [facility] [address] 08/23/2024 9:40 AM EDT Appointment Radiology, [place] [address] [place] [phone] 08/23/2024 11:30 AM EDT Office Visit General Surgery, [place] [address] [place] [address] Bola Haji MD [address] [place] [address] Health Maintenance Due Date Last Done Comments [...] this encounter Medical Devices Implanted Type Area Herb Grower Device Identifier Shelf Expiration Date Model / Serial / Lot Lens Intraoc 20.5 - [id number] - [id number] Implanted:Qty: 1 on 05/16/2020 by Fer Guzman MD at OR [facility] Left: Eye BAUSCH & LOMB 10/21/2024 [id number] / [id number] / [id number] Lens Intraoc 22.0 - [id number] - [id number] Implanted:Qty: 1 on 06/04/2020 by Fer Guzman MD at OR [facility] Right: Eye BAUSCH & LOMB 10/21/2024 [id number] / [id number] / Allomax Mesh 2 X 4 [id number] - [id number] - [id number] Implanted:Qty: 1 on 12/24/2021 by Bola Haji MD at [place] [facility] N/A: Abdomen CR BARD : DAVOL 01/19/2026 [id number] / [id number] / [id number] documented as of this encounter Advance Directives [...] the patient have Health Care Power of Diesel Crane Operator? No Care Teams Parimutuel Ticket Seller Relationship Specialty Start Date End Date Albertina Askew DO [address] [place] [facility] [place] [address] PCP - General Family Medicine 05/03/20 documented as of this encounter
--- OUTSIDE RECORDS SUMMARY | 2023-11-29 12:52 | External Medical Summary | Summary of Care ---
Author Name Unknown Organization [facility] Address [address] [place] [address] Phone [phone] Care Team Providers Care Continuous Mining Machine Operator Name Role Phone Albertina Askew DO Primary Care Provider [phone] Reason for Visit * Reason Onset Date Comments Advice 11/26/2023 Encounter Details Date Type Department Care Team (Late st Contact Info) Description 11/26/2023 Telephone [facility] [address] [place] [address] Albertina Askew DO [address] [place] [address] Advice Allergies Active Allergy Reactions Criticality Noted Date [...] by mouth in the morning. 0 Active [place]-3 Fatty Acids (OMEGA-3 CF) 1000 MG CAPS [...] (Pfizer) 09/04/2022 Pneumococcal Conjugate Vacci ne, 20-valent ([id number]) 06/07/2023 Pneumococcal Polysaccharide PPV23 (Pneumovax) 04/17/2022,11/07/2019 Seasonal [...] encounter Miscellaneous Notes * Telephone Encounter - Whitney Jasso, SANTY - 11/26/2023 1:54 PM EST Good afternoon, Received a call from Purnima patient was calling to get a status about her message that she called in this morning. I did make her aware that Dr. Askew is looking into it as of 1:18 pm. I did tell her that Dr. Askew needs to see the results of the culture from [facility] before prescribing another antibiotic. Please advise. If there are any questions, or concerns please call Purnima at [phone]. Thank you. SANTY Hartley * Telephone Encounter - Albertina Askew DO - 11/26/2023 1:17 PM EST [facility] * Telephone Encounter - Thuy Teran OSA - 11/26/2023 8:46 AM EST Patient was prescribed amoxicillin in hospital for UTI. She is experiencing Hot and cold flashes and is wondering if it could be from the antibiotic? Also, is wondering if that is what is coughing her hot and cold flashes, can she be prescribed a different antibiotic. documented in this encounter Plan of Treatment Upcoming Encounters Date Type Department Care Team (Late st Contact Info) Description 12/02/2023 10:10 AM EST Office Visit [place] [address] [place] [phone] Albertina Askew DO [address] [place] [address] 12/08/2023 9:30 AM EST Office Visit [place] [address] [place] [phone] Albertina Askew DO [address] [place] [address] 08/23/2024 9:40 AM EDT Appointment Radiology, [address] [phone] 08/23/2024 11:30 AM EDT Office Visit General Surgery, [place] [address] [place] [address] Bola Haji MD [address] [place] [address] Health Maintenance Due Date Last Done Comments [...] 08/31/2028 08/31/2018, 05/24/2008 DXA Scan 01/20/2029 01/20/2022, 03/11/2021, 08/01/2018, Additional history exists Colonoscopy 09/01/2031 09/01/2021, [...] this encounter Medical Devices Implanted Type Area Diesel Pile Hammer Operator Device Identifier Shelf Expiration Date Model / Serial / Lot Lens Intraoc 20.5 - [id number] - [id number] Implanted:Qty: 1 on 05/16/2020 by Fer Guzman MD at OR [facility] Left: Eye BAUSCH & LOMB 10/21/2024 [id number] / [id number] / [id number] Lens Intraoc 22.0 - [id number] - [id number] Implanted:Qty: 1 on 06/04/2020 by Fer Guzman MD at OR [facility] Right: Eye BAUSCH & LOMB 10/21/2024 [id number] / [id number] / Allomax Mesh 2 X 4 [id number] - [id number] - [id number] Implanted:Qty: 1 on 12/24/2021 by Bola Haji MD at OR [facility] [facility] N/A: Abdomen CR BARD : DAVOL 01/19/2026 [id number] / [id number] / [id number] documented as of this encounter Advance Directives [...] the patient have Health Care Power of Logistics Program Manager? No Care Teams Continuous Mining Machine Operator Relationship Specialty Start Date End Date Albert[facility] Askew DO [address] [facility] [address] PCP - General Family Medicine 05/03/20 documented as of this encounter
--- OUTSIDE RECORDS SUMMARY | 2023-11-29 12:52 | External Medical Summary | Summary of Care ---
Author Name Unknown Organization [facility] Address [address] [place] [address] Phone [phone] Care Team Providers Care Fitter Tacker Name Role Phone Albertina Askew DO Primary Care Provider Reason for Visit * Reason Onset Date Comments Advice 11/26/2023 Encounter Details Date Type Department Care Team (Late st Contact Info) Description 11/26/2023 Telephone [facility] [address] [place] [address] Albertina Askew DO [address] [place] [address] Advice Allergies Active Allergy Reactions [...] by mouth in the morning. 0 Active [place]-3 Fatty Acids (OMEGA-3 CF) 1000 MG CAPS [...] (Pfizer) 09/04/2022 Pneumococcal Conjugate Vacci ne, 20-valent ([id number]) 06/07/2023 Pneumococcal Polysaccharide PPV23 (Pneumovax) 04/17/2022,11/07/2019 Seasonal [...] encounter Miscellaneous Notes * Telephone Encounter - Albertina Askew DO - 11/26/2023 1:17 PM EST Can you please get urine c ulture results from [facility] * Telephone Encounter - Thuy Teran OSA [...] Description 12/02/2023 10:10 AM EST Office Visit [place] [address] [place] [phone] Albertina Askew, DO [address] [place] [address] 12/08/2023 9:30 AM EST Office Visit [place] [address] [place] [phone] Albertina Askew, DO [address] [place] [address] 08/23/2024 9:40 AM EDT Appointment Radiology, [address] [address] 08/23/2024 11:30 AM EDT Office Visit General Surgery, [place] [address] [place] [address] Bola Haji MD [address] [place], [place] [phone] Health Maintenance Due Date Last Done Comments [...] this encounter Medical Devices Implanted Type Area Director Of Intercollegiate Athletics Device Identifier Shelf Expiration Date Model / Serial / Lot Lens Intraoc 20.5 - [id number] - [id number] Implanted:Qty: 1 on 05/16/2020 by eFr Guzman MD at OR [facility] Left: Eye BAUSCH & LOMB 10/21/2024 [id number] / [id number] / [id number] Lens Intraoc 22.0 - [id number] - [id number] Implanted:Qty: 1 on 06/04/2020 by Fer Guzman MD at OR [facility] Right: Eye BAUSCH & LOMB 10/21/2024 [id number] / [id number] / Allomax Mesh 2 X 4 [id number] - [id number] - [id number] Implanted:Qty: 1 on 12/24/2021 by Bola Haji MD at OR [facility] N/A: Abdomen CR BARD : DAVOL 01/19/2026 [id number] / [id number] / [id number] documented as of this encounter Advance Directives [...] the patient have Health Care Power of Detail Drafter? No Care Teams Fitter Tacker Relationship Specialty Start Date End Date Albertina Askew DO [address] [place] [address] PCP - General Family Medicine 05/03/20 documented as of this encounter
--- OUTSIDE RECORDS SUMMARY | 2023-11-29 12:52 | External Medical Summary | Summary of Care ---
Author Name Unknown Organization [facility] Address [address] [place] [address] Phone [phone] Care Team Providers Care Skin Care Specialist Name Role Phone Albertina Askew DO Primary Care Provider [phone] Reason for Visit * Reason Onset Date Comments Advice 11/26/2023 Encounter Details Date Type Department Care Team (Late st Contact Info) Description 11/26/2023 Telephone [facility] [address] [place] [address] Albertina Askew DO [address] [place] [address] Advice Allergies Active Allergy Reactions [...] by mouth in the morning. 0 Active [place]-3 Fatty Acids (OMEGA-3 CF) 1000 MG CAPS [...] (Pfizer) 09/04/2022 Pneumococcal Conjugate Vacci ne, 20-valent ([id number]) 06/07/2023 Pneumococcal Polysaccharide PPV23 (Pneumovax) 04/17/2022,11/07/2019 Seasonal [...] encounter Miscellaneous Notes * Telephone Encounter - Gina Morales LPN - 11/26/2023 3:21 PM EST Culture results on your desk Name: PURNIMA REID Acct: [id number] Status: DIS INOo : 1955 [facility] Date: 11/24/23 Age: 68 Sex: F Dis Date: 11/25/23 Loc: Telemetry 2 [facility]/Bed: E222-1 Spec: [id number] Collected: 11/24/23-UNK Received: 11/24/23-1118 [facility] Dr: Leah Gu MD Source: Urine,Clean Catch OV Order: Ordered: Urine Culture Procedure Result Verified Site Urine Culture Final 11/26/23-951 Organism 1 Escherichia coli [place] Count >100,000 CFU/ml Sens Sensitivities to Follow E coli RX M.I.C. Amox/Clav S <=8/4 Ampicillin S <=8 Amp/Sul S <=8/4 Cefazolin S <=2 Cefepime S <=2 Ceftriaxone S <=1 Ciprofloxacin S <=0.25 Ertapenem S <=0.5 Gentamicin S <=4 Levofloxacin S <=0.5 Meropenem S <=1 Nitrofurantoin S <=32 Tobramycin S <=4 Trimeth/Sulfa S <=2/38 Pip/Tazo S <=16 S = SENSITIVE I = INTERMEDIATE R = RESISTANT * Telephone Encounter - Whitney Jasso OSA - 11/26/2023 1:54 PM EST Good afternoon, Received a call from Purnima patient was calling to get a status about her message that she called in this morning. I did make her aware that Dr. Askew is looking into it as of 1:18 pm. I did tell her that Dr. Askew needs to see the results of the culture from [facility] before prescribing another antibiotic. Please advise. If there are any questions, or concerns please call Purnima at [phone]. Thank you. SANTY Hartley * Telephone Encounter - Albertina Askew DO - 11/26/2023 1:17 PM EST Can you please get urine c ulture results from [facility] * Telephone Encounter - Thuy Teran OSA [...] Description 12/02/2023 10:10 AM EST Office Visit [address] [phone] Albertina Askew, DO [address] [place] [address] 12/08/2023 9:30 AM EST Office Visit [place] [address] [place] [phone] Albertina Askew, DO [address] [place] [address] 08/23/2024 9:40 AM EDT Appointment Radiology, [place] [address] [place] [address] 08/23/2024 11:30 AM EDT Office Visit General Surgery, [place] [address] [place] [address] Bola Haji MD [address] [place], [place] [phone] Health Maintenance Due Date Last Done Comments [...] this encounter Medical Devices Implanted Type Area Felt Washing Machine Tender Device Identifier Shelf Expiration Date Model / Serial / Lot Lens Intraoc 20.5 - [id number] - [id number] Implanted:Qty: 1 on 05/16/2020 by Fer Guzman MD at OR [facility] Left: Eye BAUSCH & LOMB 10/21/2024 [id number] / [id number] / [id number] Lens Intraoc 22.0 - [id number] - [id number] Implanted:Qty: 1 on 06/04/2020 by Fer Guzman MD at OR [facility] Right: Eye BAUSCH & LOMB 10/21/2024 [id number] / [id number] / Allomax Mesh 2 X 4 [id number] - [id number] - [id number] Implanted:Qty: 1 on 12/24/2021 by Bola Haji MD at OR [facility] N/A: Abdomen CR BARD : DAVOL 01/19/2026 [id number] / [id number] / [id number] documented as of this encounter Advance Directives [...] the patient have Health Care Power of Segmental Paving Supervisor? No Care Teams Skin Care Specialist Relationship Specialty Start Date End Date Albertina Askew DO [address] [place] [facility] [place] [address] PCP - General Family Medicine 05/03/20 documented as of this encounter
== END 2023-11-25 13:11 | disposition home or self-care (01) | DRG 149 ==
LOC: ED 22:46 → OBSVTOIN 11-24 03:54 → EDINP 11-24 03:54 → INTOOBSV 11-24 03:54 → 2S 11-24 04:39